=== PATIENT | female | born 1955 | race Caucasian/White ===

== ENCOUNTER 2016-10-15 06:46 | Inpatient (IN) ==
--- NOTE | 2016-10-09 13:46 | EKG Report ---
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
[2016-10-09 14:09] LABS: Alanine Aminotransferase 11 U/L (13-56); Albumin 3.7 G/DL (3.4-5.0); Alkaline Phosphatase 69 U/L (45-117); Aspartate Amino Transferase 17 U/L (0-37); Bilirubin,Total < 0.39 MG/DL (0.2-1.0); Blood Urea Nitrogen 9 MG/DL (7-18); Calcium 9.1 MG/DL (8.5-10.1); Glucose 122 MG/DL (74-106); Sodium 143 MMOL/L (136-145); Total Protein 6.5 G/DL (6.4-8.3)
[2016-10-09 20:43] LABS: Basophils % 0.4 % (0.0-0.8); Eosinophils # 0.4 10*3/uL (0.0-0.87); Eosinophils % 5.3 % (0.00-10.9); Hematocrit 40.2 VOL% (35.7-47.0); Hemoglobin 12.9 GM/DL (12.0-16.0); Immature Granulocytes % 0.4 %; Immature Granulocytes Absolute 0.03 #; Lymphocytes # 1.9 10*3/uL (1.4-4.0); Lymphocytes % 23.4 % (21.3-54.2); Mean Corpuscular HGB Conc 32.1 GM/DL (32-36); Mean Corpuscular Hemoglobin 30 PG (27-34); Mean Corpuscular Volume 93.9 FL (87-102); Mean Platelet Volume 10.7 FL (9.6-12.0); Monocytes # 0.7 10*3/uL (0.11-0.8); Neutrophils # 4.9 10*3/uL (1.4-7.4); Neutrophils % 61.5 % (38.7-73.9); Platelet Count 216 T/CUMM (130-400); Red Blood Count 4.28 MC/CUMM (3.8-5.5); Red Cell Distribution Width 14.3 % (9.3-17.3)
[2016-10-15] MEDS ORDERED: FAMOTIDINE 20 MG TABLET PO ONE (07:51)
[2016-10-15] MEDS ORDERED: ALBUTEROL 2.5 MG/3 ML NEB RESP TX ONE (07:51)
[2016-10-15] MEDS ORDERED: DIAZEPAM 5 MG TABLET PO ONE (07:51)
[2016-10-15] MEDS ORDERED: DIAZEPAM 5 MG TABLET ONE (07:57)
[2016-10-15] MEDS ORDERED: ceFAZolin 1,000 MG VIAL ONE (07:57)
[2016-10-15] MEDS ORDERED: FAMOTIDINE 20 MG TABLET ONE (07:57)
[2016-10-15] MEDS ORDERED: SODIUM CHLORIDE 0.9% 100 ML IV ONE (07:58)
[2016-10-15] MEDS ORDERED: LACTATED RINGERS 1,000 ML IV SCH (08:00)
--- NOTE | 2016-10-15 08:10 | History and Physical Update ---
History and Physical Update - Physical Exam History and Physical Changes: Patient reports possibly having had a UTI when she has rehab but was not treated I will check a UA this morning there is no evidence of an ongoing infection today carotid endarterectomy will continue the Ancef until I am certain is not an ongoing infection
[2016-10-15 08:30] LABS: Apearance,Urine CLEAR (Clear); Bacteria,Urine Occasional /HPF (Few); Bilirubin,Urine Negative (Negative); Blood, Urine Negative (Negative); Glucose,Urine (UA) Negative (Negative); Ketones,Urine Negative (Negative); Mucus,Urine Occasional /LPF (Occasional); Nitrite,Urine Negative (Negative); Protein,Urine Negative; RBC,Urine 1 /HPF (0-4); Squamous Epithelial Cell,Urine Occasional /HPF (0-10); Urine Color Yellow (Yellow); Urine Specific Gravity 1.012 (1.001-1.035); Urine Urobilinogen < 2.0 EU/DL (0.2-1.0); WBC,Urine 1 /HPF (0-6)
[2016-10-15] MEDS ORDERED: HEPARIN 5,000 UNIT/1 ML VIAL ONE (08:36)
[2016-10-15] MEDS ORDERED: VANCOMYCIN 1,000 MG VIAL ONE (08:36)
[2016-10-15] MEDS ORDERED: LIDOCAINE 2% 5 ML VIAL ONE (09:30)
[2016-10-15] MEDS ORDERED: KETOROLAC 30 MG/1 ML VIAL ONE (09:30)
[2016-10-15] MEDS ORDERED: ETOMIDATE 20 MG/10 ML VIAL IV ONE (09:30)
[2016-10-15] MEDS ORDERED: GLYCOPYRROLATE 0.4 MG/2 ML VIAL ONE (09:30)
[2016-10-15] MEDS ORDERED: NEOSTIGMINE 10 MG/10 ML VIAL ONE (09:30)
[2016-10-15] MEDS ORDERED: ONDANSETRON 4 MG/2 ML VIAL ONE ×2 (09:30→11:15)
[2016-10-15] MEDS ORDERED: HEPARIN 10,000 UNIT/10 ML VIAL ONE (09:30)
[2016-10-15] MEDS ORDERED: ROCURONIUM 100 MG/10 ML VIAL IV ONE (09:30)
--- NOTE | 2016-10-15 10:51 | Operative Note ---
Date of procedure: 10/15/16 Procedure: Dr. Oliva an operative report on Simran Eubanks. Surgeon: Chiki Anesthesia: Iliev general endotracheal Preoperative diagnosis: Symptomatic high-grade right carotid stenosis Postoperative diagnosis: Same Procedure: Right carotid endarterectomy with a bovine pericardial patch Indications for the procedure Ms. eubanks is a 61-year-old woman recently had some cerebrovascular accidents found to have a very high-grade stenosis of the right internal carotid artery I have offered a right carotid endarterectomy have explained the alternatives risks and complications which she understands and accepts. Description of the procedure: After the induction of general endotracheal anesthesia the patient was placed in supine position her neck modestly extended and turned to the left or right neck and chest are prepped with ChloraPrep and Ioban and draped in usual fashion I made a horizontal incision in a skin crease below the angle of the mandible this is carried into the subplatysmal space and dissection was carried out along the anterior border of the sternocleidomastoid muscle. Anterior facial vein is identified ligated and hemoclipped and divided I then dissected anterior to the internal jugular vein locating the common carotid artery. Common carotid is controlled with a maxi vessel loop the patient received 5000 units of intravenous heparin. I then continued dissecting along the common carotid past the bifurcation separately controlling the superior thyroid external carotid and internal carotid arteries well above the bifurcation and its disease the hypoglossal nerve and vagus nerves were identified and protected. With adequate anticoagulation Vesseloops were brought up to control the artery and a longitudinal arteriotomy was made from the common carotid past the markedly diseased bifurcation and into the more normal distal internal carotid artery. Notably there was a fairly significant kink in the carotid artery just above the plaque. Placed in in-line [place] shunt into the internal carotid and obtained good back pressure and then placed in the common carotid to reestablish flow. There was an exophytic highly stenotic plaque at the origin of the internal carotid artery standard endarterectomy was carried out removing the diseased intima and media from the bifurcation and loose flaps of medial removed under loupe magnification. With the amount of kinking and redundancy I felt the best approach would be to take more or less a complete in the internal carotid artery to take up the extra slack and further tack down the distal intima this was done with a running 7-0 Prolene suture. I then closed the arteriotomy over the shunt with a bovine pericardial patch and 6-0 Prolene suture shunt was removed and appropriate time backflushing internal/external carotid arteries and flushing again with heparinized saline. With the arteriotomy completely closed flow was initiated from the common carotid into the external and then restored into the internal carotid artery. Doppler flow in both vessels were quite good patient received 25 mg of protamine to partially reverse heparin. Pressure was held for period of time hemostasis was good irrigated with vancomycin placed us pledget of Surgicel over the arteriotomy incision was closed over quarter inch Callum drain with 3-0 Monocryl in the platysma skin clips on the skin. Blood loss estimated at 100 cc sponge needle and instrument counts correct and the patient taken to recovery in stable condition. Surgeon / Physician: Raman Oliva Results - Labs CBC & BMP: 10/09/16 13:28 10/09/16 13:28 Discharge Plan - Discharge Medications No Action Albuterol Neb [Proventil Neb] 1 unit RESP TX DIRECTED Albuterol Inhaler [Proventil Inhaler] 2 puff INH Q6H PRN PRN Reason: Shortness Of Breath/Wheezing fentaNYL [Fentanyl 50 mcg/hr Patch] 1 patch TRANSDERM Q3DAY Diazepam Tab [Valium Tab] 2 mg PO BID Clopidogrel [Plavix] 1 tablet PO DAILY HYDROcodone/ACETAMIN 10-325 [[place] 10-325] 1 tablet PO Q4-6H PRN PRN Reason: Pain Moderate To Severe (4-10) Rosuvastatin [Crestor] 1 tablet PO DAILY Aspirin [Ecotrin] 81 mg PO DAILY Losartan [Cozaar] 50 mg PO DAILY Temazepam [Restoril] 15 mg PO BEDTIME PRN PRN Reason: Sleep Buspirone HCl 7.5 mg PO BID - Follow Up or Referral - Forms/Instructions
[2016-10-15] MEDS: HYDROmorphone 2 MG/1 ML VIAL IV PRN ×5 (11:15→16:15)
[2016-10-15] MEDS ORDERED: HYDROmorphone 2 MG/1 ML VIAL ONE (11:15)
[2016-10-15] MEDS ORDERED: ONDANSETRON 4 MG/2 ML VIAL IV PRN ×2 (11:15→12:46)
[2016-10-15] MEDS ORDERED: SEVOFLURANE 1 UNIT/15 MINUTE INH ONE (11:18)
[2016-10-15] MEDS ORDERED: fentaNYL 100 MCG/2 ML VIAL ONE (11:18)
[2016-10-15] MEDS ORDERED: MIDAZOLAM 2 MG/2 ML VIAL ONE (11:19)
--- NOTE | 2016-10-15 11:58 | Anesthesia Post-Op ---
Anesthesia Post OP - Post Ansesthetic Evaluation Patient seen in post op: Yes Resp: within normal limits CV: within normal limits Mental: within normal limits Temp: within normal limits [id number]: within normal limits Nausea and Vomiting: within normal limits Pain: within normal limits (hurting some being treated with pain meds)
[2016-10-15] MEDS ORDERED: PROMETHAZINE 25 MG/1 ML VIAL IM PRN (12:46)
[2016-10-15] MEDS ORDERED: DOPamine 800 MG/250 ML PREMIX IV PRN (12:46)
[2016-10-15] MEDS ORDERED: DEXTROSE 50% 25 GM/50 ML VIAL IV PRN (12:46)
[2016-10-15] MEDS ORDERED: NALOXONE 0.4 MG/ML VIAL IV PRN (12:46)
[2016-10-15] MEDS ORDERED: GLUCAGON 1 MG VIAL IM PRN (12:46)
[2016-10-15] MEDS ORDERED: TEMAZEPAM 15 MG CAPSULE PO PRN (12:48)
[2016-10-15] MEDS ORDERED: ALBUTEROL 2.5 MG/3 ML NEB RESP TX SCH (13:00)
[2016-10-15] MEDS: LACTATED RINGERS 1,000 ML IV SCH (13:23)
[2016-10-15] MEDS: ASPIRIN EC 81 MG TABLET PO SCH (13:26)
[2016-10-15] MEDS: CLOPIDOGREL 75 MG TABLET PO SCH (13:26)
[2016-10-15] MEDS: oxyCODONE/ACETAMINOPHEN 5-325 MG TABLET PO PRN ×2 (14:55→20:59)
[2016-10-15] MEDS ORDERED: ALBUTEROL 2.5 MG/3 ML NEB RESP TX PRN (15:14)
--- NOTE | 2016-10-15 16:41 | Event Note ---
Ms. osorio is awake alert oriented and answers questions appropriately no facial asymmetry tongue midline no hematoma good handgrip vital signs appear to be stable as well without pressors
[2016-10-15] MEDS: DIAZEPAM 2 MG TABLET PO SCH (20:59)
[2016-10-15] MEDS: busPIRone 15 MG TABLET PO SCH (20:59)
[2016-10-16] MEDS: LACTATED RINGERS 1,000 ML IV SCH (00:02)
[2016-10-16] MEDS: HYDROmorphone 2 MG/1 ML VIAL IV PRN ×2 (06:00→13:06)
--- NOTE | 2016-10-16 08:00 | Event Note ---
Ms. osorio is awake alert oriented answering questions complain somewhat of mild headache and sore throat at the incision. Good handgrip tongue midline no facial asymmetry incision looks good Callum drain is been removed. Still requiring a bit of dopamine to maintain blood pressure. I am going to have the nurse staff remove a line get her up she can have breakfast and perhaps if the pressure improves we can get her upstairs later today
[2016-10-16] MEDS: busPIRone 15 MG TABLET PO SCH ×2 (08:49→20:08)
[2016-10-16] MEDS: ASPIRIN EC 81 MG TABLET PO SCH (08:49)
[2016-10-16] MEDS: CLOPIDOGREL 75 MG TABLET PO SCH (08:49)
[2016-10-16] MEDS: ROSUVASTATIN 10 MG TABLET PO SCH (08:49)
[2016-10-16] MEDS: DIAZEPAM 2 MG TABLET PO SCH ×2 (08:52→20:08)
[2016-10-16] MEDS: oxyCODONE/ACETAMINOPHEN 5-325 MG TABLET PO PRN ×3 (08:53→20:08)
[2016-10-16] MEDS ORDERED: LOSARTAN 50 MG TABLET PO SCH (09:00)
[2016-10-16] MEDS ORDERED: CLOPIDOGREL 75 MG TABLET PO SCH (09:00)
[2016-10-16] MEDS ORDERED: ASPIRIN EC 81 MG TABLET PO SCH (09:00)
--- NOTE | 2016-10-16 16:59 | Event Note ---
Ms. hollins remains awake and alert her blood pressures much more stable and off dopamine I will go ahead and transfer upstairs this evening
[2016-10-16] MEDS ORDERED: DEXTROSE 50% 25 GM/50 ML VIAL IV PRN (17:04)
[2016-10-16] MEDS ORDERED: GLUCAGON 1 MG VIAL IM PRN (17:04)
[2016-10-17] MEDS: HYDROmorphone 2 MG/1 ML VIAL IV PRN (02:13)
[2016-10-17] MEDS: oxyCODONE/ACETAMINOPHEN 5-325 MG TABLET PO PRN (05:59)
[2016-10-17 07:17] VITALS: BP 150/71
--- NOTE | 2016-10-17 08:49 | Discharge Summary ---
Hospital Course - Hospital Course Hospital Course: Simran osorio was admitted with symptomatic right carotid stenosis and has undergone a right carotid endarterectomy. She had difficulties with hypotension postoperatively and therefore spent extra time in the ICU and an extra night in the hospital but this morning is up and about walking dressed and ready for discharge. Discussed wound care with her new medications expected recovery and exercise restrictions. She does not drive due to visual discomfort difficulties. I will plan to see her in the office next week for staple removal Specialty Discharge - Follow Up or Referrals Follow up with: Raman Oliva MD [Physician] - 10/22/16 2:15 pm (APPT.OCTOBER 22 @ 2:15) Discharge Plan - Discharge Data Disposition: Disch To Home/Self Care Condition at Discharge: Stable Discharge Diet: advance to your usual diet Activity: resume usual activities as tolerated Hygiene: may shower Weight Bearing at Discharge: full weight bearing Driving: not until seen by doctor Contact your physician if you experience:: Redness or swelling, Bleeding - Discharge Medications Continue Albuterol Inhaler [Proventil Inhaler] 2 puff INH Q6H PRN PRN Reason: Shortness Of Breath/Wheezing HYDROcodone/ACETAMIN 10-325 [[place] 10-325] 1 tablet PO Q4-6H PRN #20 PRN Reason: Pain Moderate To Severe (4-10) fentaNYL [Fentanyl 50 mcg/hr Patch] 1 patch TRANSDERM Q3DAY Diazepam Tab [Valium Tab] 2 mg PO BID Clopidogrel [Plavix] 1 tablet PO DAILY Rosuvastatin [Crestor] 1 tablet PO DAILY Aspirin [Ecotrin] 81 mg PO DAILY Losartan [Cozaar] 50 mg PO DAILY Temazepam [Restoril] 15 mg PO BEDTIME PRN PRN Reason: Sleep Buspirone HCl 7.5 mg PO BID - Follow Up or Referral Follow Up: Raman Oliva MD [Physician] - 10/22/16 2:15 pm (APPT.OCTOBER 22 @ 2:15) - Forms/Instructions Exam - Constitutional Vitals: Period Temp Pulse Resp BP Sys/Martinez Pulse Ox Last 24 Hr 97.9 F-99.0 F 61-123 12-25 95-189/45-125 90-100 DS: Provider Date of admission: 10/15/16 06:46 Primary care physician: Jennifer Vora M.D. Attending physician on admission: Raman Oliva MD Discharging clinician: Raman Oliva MD
[2016-10-17] MEDS: busPIRone 15 MG TABLET PO SCH (08:55)
[2016-10-17] MEDS: ROSUVASTATIN 10 MG TABLET PO SCH (08:55)
[2016-10-17] MEDS: CLOPIDOGREL 75 MG TABLET PO SCH (08:56)
[2016-10-17] MEDS: DIAZEPAM 2 MG TABLET PO SCH (08:56)
[2016-10-17] MEDS: ASPIRIN EC 81 MG TABLET PO SCH (08:56)
[2016-10-18] MEDS ORDERED: fentaNYL 50 MCG/HR PATCH TRANSDERM SCH (09:00)
== END 2016-10-17 10:15 | disposition home or self-care (01) | DRG 39 ==
LOC: N.SDSINP 06:46 → N.ICU 11:54 → N.3E 10-16 17:28
PROVIDERS: ADMIT Surgery; ATTEND Surgery

== ENCOUNTER 2016-10-23 12:39 | Inpatient (IN) ==
[2016-10-23 15:03] LABS: Hematocrit 36.8 VOL% (35.7-47.0); Hemoglobin 11.5 GM/DL (12.0-16.0); Immature Granulocytes % 0.4 %; Immature Granulocytes Absolute 0.03 #; Lymphocytes # 0.9 10*3/uL (1.4-4.0); Lymphocytes % 10.3 % (21.3-54.2); Mean Corpuscular HGB Conc 31.3 GM/DL (32-36); Mean Corpuscular Hemoglobin 30 PG (27-34); Mean Corpuscular Volume 95.6 FL (87-102); Mean Platelet Volume 9.8 FL (9.6-12.0); Monocytes # 0.7 10*3/uL (0.11-0.8); Monocytes % 8.4 % (1.7-12.7); Neutrophils # 6.8 10*3/uL (1.4-7.4); Neutrophils % 80.9 % (38.7-73.9); Platelet Count 162 T/CUMM (130-400); Red Blood Count 3.85 MC/CUMM (3.8-5.5); White Blood Count 8.4 T/CUMM (4-12)
[2016-10-23 15:08] LABS: ABG Base Excess 7.6 MMOL/L (-2.5-2.5); ABG HCO3 31.3 MMOL/L (20-26); ABG Oxygen Saturation 96.5 % (95-100); ABG PCO2 44.6 MM HG (35-48); ABG PH 7.467 (7.35-7.45); ABG PO2 83.8 MM HG (80-95); ABG TCO2 28.8 MMOL/L (23-27); Allen Test Positive; Pt O2 Delivery Device Ventilator
[2016-10-23 15:12] LABS: INR 1.3; PT Patient Result 13.5 SECS
[2016-10-23 15:26] LABS: Lactic Acid 3.6 MMOL/L (0.4-2.0)
[2016-10-23 15:39] LABS: Apearance,Urine CLEAR (Clear); Bacteria,Urine Occasional /HPF (Few); Bilirubin,Urine Negative (Negative); Blood, Urine Small mg/dL (Negative); Glucose,Urine (UA) Negative (Negative); Hyaline Casts,Urine 5 /LPF (0-3); Ketones,Urine 5 mg/dL (Negative); Mucus,Urine Occasional /LPF (Occasional); Nitrite,Urine Negative (Negative); Protein,Urine 30 MG/DL; RBC,Urine 1 /HPF (0-4); Urine Color Yellow (Yellow); WBC,Urine 5 /HPF (0-6)
[2016-10-23 15:43] LABS: Albumin 2.8 G/DL (3.4-5.0); Bilirubin,Total 0.6 MG/DL (0.2-1.0); Calcium 7.8 MG/DL (8.5-10.1); Osmolality,Calculated 291.4 MOS/KG (273-304); Potassium 4.3 MMOL/L (3.5-5.1); Total Protein 5.3 G/DL (6.4-8.3)
[2016-10-23] MEDS ORDERED: SODIUM CHLORIDE 0.9% 1,000 ML IV SCH (16:00)
--- NOTE | 2016-10-23 16:01 | Hospitalist History & Physical ---
<Yuliet Moraes - Last Filed: 10/23/16 16:46> Assessment and Plan (1) Respiratory distress Status: Acute Assessment and plan: Admit to ICU. Mechanical ventilation. Consult pulm to follow. Monitor blood gases. Labs in am. Current Visit: Yes (2) Hypertension Status: Acute Assessment and plan: Pt. blood pressure currently elevated. PRN IV htn medications. Current Visit: No (3) Elevated troponin Status: Acute Assessment and plan: Serial troponins. Serial EKGs. Monitor patient. Consult cardiology. Current Visit: Yes (4) Drug overdose Status: Acute Assessment and plan: Admit to ICU. Pt. on vent for respiratory issues. Monitor labs. Current Visit: Yes (5) chronic pain Status: Chronic Current Visit: No History of Present Illness Chief complaint: respiratory failure History of present illness: Ms. Eubanks is a 61 year old white female with a history of htn, depression and anxiety, COPD, pneumonia, stroke, RA, chf, and MIKE that is a direct admit from [facility] for respiratory distress secondary to possible drug overdose. Pt. was just seen in the ED here on 10/21 for a headache. Pt. was treated and released. Pt. is s/p recent carotid procedure performed by Dr. Oliva. Pt. also just recently had a stroke prior to her carotid endarterectomy. Pt. is currently intubated. Sister at bedside and provides history of what she was told happen to patient per brother. This morning, the patient was last seen alert around 7. When the pt's brother went to arouse her she was sleeping, later when he tried again she was unresponsive. EMS was alert and came to the home. Pt. was reportedly gurgling and still very lethargic. Pt. had been found next to pills which included pain medications which patient takes for spinal stenosis, RA, and chronic pain. The patient was given Narcan, transported to [facility] and subsequently transferred here. Pt. was admitted to the ICU for further eval and treatment. MD to follow. Home Medications Medication Instructions Recorded Confirmed Type Aspirin [Ecotrin] 81 mg PO DAILY 10/03/16 10/15/16 History Buspirone HCl 7.5 mg PO BID 10/03/16 10/23/16 History Clopidogrel [Plavix] 1 tablet PO DAILY 10/03/16 10/23/16 History Diazepam Tab [Valium Tab] 2 mg PO BID 10/03/16 10/15/16 History Losartan [Cozaar] 50 mg PO DAILY 10/03/16 10/23/16 History Rosuvastatin [Crestor] 1 tablet PO DAILY 10/03/16 10/15/16 History Temazepam [Restoril] 15 mg PO BEDTIME PRN 10/03/16 10/15/16 History Albuterol Inhaler [Proventil 2 puff INH Q4HR 10/09/16 10/15/16 History Inhaler] fentaNYL [Fentanyl 50 mcg/hr Patch] 1 patch TRANSDERM Q3DAY 10/09/16 10/15/16 History HYDROcodone/ACETAMIN 10-325 [[place] 1 tablet PO Q4-6H PRN #20 10/17/16 10/23/16 Rx 10-325] Allergies Allergy/AdvReac Type Severity Reaction Status Date / Time morphine Allergy Severe SHORTNESS Verified 10/15/16 07:07 OF BREATH Medical,Surgical,& Family Hx - Medical History Cardio: History of: Hypertension Psychological: History of: Anxiety Disorders, Depression Neurology: History of: Cerebrovascular Accident, Peripheral Neuropathy HEENT: History of: Eye Problem (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 Way), Osteoporosis Reproductive: History of: Abnormal Pap Smear (pre-cancerous cells with removal.) Other: No history of: Anesthesia Reactions - Surgical History HEENT Surgeries: Surgical HX of: Eye Surgery (Cataract removal.) Abdominal Surgeries: Surgical HX of: Abdominal Surgery, Appendectomy, Gastric Bypass Surgery Reproductive Surgeries: Surgical HX of;: Hysterectomy Orthopedic Surgeries: Surgical HX of;: Orthopedic Surgery (Left Rotator Cuff Repair.) - Family History Family History: Reports;: Family Cancer, Family Diabetes, Family Heart Disease, Family Hypertension, Family Psychiatric Problems, Family Stroke - Social History Smoking Status: Former smoker Frequency of Alcohol Use: Unknown Type of Drug Use: Unknown Marital Status: Single Lives With:: Alone (pt. lives alone; since recent carotid she has stayed with her brother and his ) ROS unobtainable: due to endotracheal tube Exam - Constitutional Vitals: Period Temp Pulse Resp BP Sys/Martinez Pulse Ox Last 24 Hr 14 General appearance: normal weight, no acute distress - Head Head exam: Present: normal inspection, normocephalic - Eye Eye exam: Absent: EOMI Pupils: Present: fixed. Absent: XAVIER - Neck Neck exam: Present: normal inspection. Absent: thyromegaly - Respiratory Respiratory exam: Present: wheezes - Cardiovascular Cardiovascular exam: Present: regular rate and rhythm. Absent: JVD - GI/Abdominal GI/Abdominal exam: Present: soft. Absent: normal bowel sounds - Extremities Exam Extremities exam: Present: normal capillary refill. Absent: edema - Neurological Exam Neurological exam: Present: altered, motor sensory deficit - Skin Skin exam: Present: normal color, warm, dry Results - Labs CBC & BMP: 10/23/16 14:58 10/23/16 14:58 Lab Results: I have reviewed the past 24 hour labs <Lianet Bishop - Last Filed: 10/23/16 18:56> History of Present Illness History of present illness: Ms. Eubanks is a 61 year old female with Hx of RA, HTN, anxiety/depression, recent right occipital CVA and CEA, peripheral neuropathy, COPD, MIKE, and osteoporosis who presented to the hospital unresponsive. Reportedly at the OSH she was given Narcan and awoke. She became combative and was sedated requiring intubation. She was transferred to hospital for further evaluation and treatment. Reportedly, CT head was negative. Labs reveal elevated LFTs, creatinine 1.6, troponin 1.89, lactic acid of 3.6. Cards, Pulm, GI are consulted. Versed drip changed to diprovan. I have ordered a acetaminophen level now and in 4hours and written for Antedote protocol. I discussed with poison control who agrees with management and will follow-up patient results. IVF changed to lactated ringer. Viral hepatitis panel ordered. Abd U/S ordered. labs ordered for am. Vitals reviewed Sedated and intubated, ashen appearance RRR no M CTAB nonlabored Soft, hypoactive bowel sounds no HSM or masses appreciated cool distal extremities, no cyanosis or edema Full neuro could not be done due to sedation Pt is critically ill. It has taken me 44 minutes to evaluate and treat this patient. No family available at bedside. D/W nurse and TRANSMISSION ENGINEER. Pt is full code. Exam - Constitutional Vitals: Period Temp Pulse Resp BP Sys/Martinez Pulse Ox Last 24 Hr 97.8 F 71-78 14-19 129-160/86-113 97-100 Results - Labs CBC & BMP: 10/23/16 14:58 10/23/16 14:58
[2016-10-23] MEDS ORDERED: ONDANSETRON 4 MG/2 ML VIAL IV PRN (16:14)
[2016-10-23 16:19] LABS: Albumin 2.8 G/DL (3.4-5.0); Bilirubin,Direct 0.4 MG/DL (0.0-0.20); Bilirubin,Indirect 0.2 MG/DL (0.0-1.0); Bilirubin,Total 0.6 MG/DL (0.2-1.0); Total Protein 5.3 G/DL (6.4-8.3)
[2016-10-23 16:26] LABS: CKMB % 3.1 %
[2016-10-23 16:29] LABS: Troponin I Only 1.89 NG/ML (0.00-0.045)
[2016-10-23] MEDS: PROPOFOL 1,000 MG/100 ML BOTTLE IV SCH ×2 (16:29→22:23)
--- NOTE | 2016-10-23 17:15 | XRay Report ---
XR chest 1V portable Indication: Ventilator. Comparison: None. Technique: Portable AP chest was performed. Findings: The heart size appears within normal limits. Endotracheal tube terminates at the level of the marnie. Retraction by 1 to 2 cm could be considered. NG tube is present which terminates within the gastric fundus. Pulmonary vasculature demonstrates no specific abnormality. Hilar structures demonstrate fairly symmetric appearance. The lungs demonstrate haziness in the lung bases more prevalent on the left. Differential considerations include atelectasis. Mid and upper lungs are clear. Bones and soft tissues demonstrate no evidence of acute pathology. Impression: 1. Retraction of endotracheal tube by 1 to 2 cm could be considered. 2. Haziness most pronounced in the left lung base could reflect atelectasis. 10/23/2016 5:12 PM PROCEDURE INTERPRETED AT [facility] DEPARTMENT OF RADIOLOGY Final Report Signed by: Dr. Abdi Mariscal
--- NOTE | 2016-10-23 18:04 | Cardiology Consult Note ---
<Aixa Montague E - Last Filed: 10/23/16 17:37> Assessment and Plan - Time spent with patient Time spent with patient: Greater than 30 minutes (due to assessment, plan, and documentation) (1) Elevated troponin Status: Acute Assessment and plan: SEE PLAN OF CARE LISTED BELOW. Current Visit: Yes (2) Respiratory distress Status: Acute Assessment and plan: SEE PLAN OF CARE LISTED BELOW. Current Visit: Yes (3) Drug overdose Status: Acute Assessment and plan: SEE PLAN OF CARE LISTED BELOW. Current Visit: Yes (4) Hypertension Status: Chronic Assessment and plan: SEE PLAN OF CARE LISTED BELOW. Current Visit: No (5) Chronic pain syndrome Status: Chronic Assessment and plan: SEE PLAN OF CARE LISTED BELOW. Current Visit: No (6) Carotid stenosis Status: Chronic Assessment and plan: SEE PLAN OF CARE LISTED BELOW. 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 Current Visit: No (8) History of CHF (congestive heart failure) Status: Chronic Assessment and plan: SEE PLAN OF CARE LISTED BELOW. Current Visit: Yes (9) MIKE (obstructive sleep apnea) Status: Chronic Assessment and plan: SEE PLAN OF CARE LISTED BELOW. Current Visit: Yes (10) COPD (chronic obstructive pulmonary disease) Status: Chronic Assessment and plan: SEE PLAN OF CARE LISTED BELOW. Current Visit: No History of Present Illness - Data of Consult Patient: new to practice Consult date: 10/23/16 Requesting Physician: Yuliet Moraes - Consult Narrative Reason for consult: ELEVATED TROPONIN History of present illness: CREW LEAD: UNKNOWN PATIENT IS BEING SEEN IN THE CCU ROOM 126. Ms. Eubanks is a 61 year old female who was directly admitted to our facility from [facility]. She is intubated and on mechanical ventilation. Much of the history is obtained from the medical record. She has a history of hypertension, depression and anxiety, COPD, pneumonia, stroke, rheumatoid arthritis, congestive heart failure, and obstructive sleep apnea. She was apparently last seen alert around 0700 this morning. When the patient's brother went to arouse her later in the morning, she was sleeping but then was unresponsive. Her brother called EMS and she was transported to [facility]. She was just discharged from our facility on 10/17/16 from having a right carotid endarterectomy. She has a history of CVA prior to her right and apparently has an impaired memory and tunnel vision with no peripheral vision. Her family reports she has difficulty with remembering to take medications and remembering whether or not she has already taken medications. When the patient was found by EMS, it's reported that she was gurgling and lethargic. Several pills including pain medications were found near the patient. She takes medication for spinal stenosis, rheumatoid arthritis, and chronic pain. She was transferred here to our facility for further evaluation and we were consulted to see her due to an elevated troponin. Upon arrival to [facility], her troponin was 0.497. Her CK-MB was 4.1. EKG showed NSR with mild ST depression anterolaterally. We do not have prior records of her having seen a wood scrap handler at [facility] nor at [facility]. We will continue to cycle cardiac biomarkers and EKGs. We'll obtain an echo to assess for wall motion abnormalities and/or valvular abnormalities. Her creatinine is elevated at 1.6. We'll hold off on resuming her ARB and start her on a low dose beta kris. Will follow her BMP. Dr. Higgins to follow with further plan and addendum. ASSESSMENT/PLAN: 1. ELEVATED TROPONIN - Unsure whether patient has had recent cardiac symptoms. EKG shows mild ST-T changes from previous EKG done 10/09/16. Troponin up to 1.89 with CK-MB 7.3 and CPK 235. We do not have records of her previously undergoing cardiac evaluation at our facility. If this is pursued, will need to monitor renal function. Creatinine currently 1.6, was 1.0 upon discharge on 10/17/16. 2. RESPIRATORY FAILURE - Currently intubated and on mechanical ventilation. Pulmonology has been consulted for vent management. 3. SUSPECTED DRUG OVERDOSE - Urine drug screen pending. Suspected overdose on opioids. 4. HYPERTENSION - Will continue home medication. Will monitor and adjust medications accordingly during hospitalization. 5. CHRONIC PAIN - Related to spinal stenosis, rheumatoid arthritis. Reportedly takes [place] and Fentanyl patches at home. 6. CAROTID STENOSIS - S/P right carotid endarterectomy 10/15/[address] Oliva. Continue Plavix. Will start her on ASA daily. 7. HISTORY OF CVA - History of recent CVA with memory impairment and impaired peripheral visual acuity. 8. HISTORY OF CHF - Will check echocardiogram to assess. BNP unremarkable at 237. 9. OBSTRUCTIVE SLEEP APNEA - Currently on mechanical ventilation. Continue CPAP once off vent. 10. COPD - Currently on mechanical ventilation. Pulmonology has been consulted. CC: Lianet Bishop MD - Home Medications and Allergies Home Medications: Home Medications Medication Instructions Recorded Confirmed Type Aspirin [Ecotrin] 81 mg PO DAILY 10/03/16 10/15/16 History Buspirone HCl 7.5 mg PO BID 10/03/16 10/23/16 History Clopidogrel [Plavix] 1 tablet PO DAILY 10/03/16 10/23/16 History Diazepam Tab [Valium Tab] 2 mg PO BID 10/03/16 10/15/16 History Losartan [Cozaar] 50 mg PO DAILY 10/03/16 10/23/16 History Rosuvastatin [Crestor] 1 tablet PO DAILY 10/03/16 10/15/16 History Temazepam [Restoril] 15 mg PO BEDTIME PRN 10/03/16 10/15/16 History Albuterol Inhaler [Proventil 2 puff INH Q4HR 10/09/16 10/15/16 History Inhaler] fentaNYL [Fentanyl 50 mcg/hr Patch] 1 patch TRANSDERM Q3DAY 10/09/16 10/15/16 History HYDROcodone/ACETAMIN 10-325 [[place] 1 tablet PO Q4-6H PRN #20 10/17/16 10/23/16 Rx 10-325] Allergies/Adverse Reactions: Allergies Allergy/AdvReac Type Severity Reaction Status Date / Time morphine Allergy Severe SHORTNESS Verified 10/15/16 07:07 OF BREATH ROS unobtainable: due to endotracheal tube Medical,Surgical,& Family Hx - Medical History Cardio: History of: Hypertension Psychological: History of: Anxiety Disorders, Depression Neurology: History of: Cerebrovascular Accident, Peripheral Neuropathy HEENT: History of: Eye Problem (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 Way), Osteoporosis Reproductive: History of: Abnormal Pap Smear (pre-cancerous cells with removal.) Other: No history of: Anesthesia Reactions - Surgical History HEENT Surgeries: Surgical HX of: Eye Surgery (Cataract removal.) Abdominal Surgeries: Surgical HX of: Abdominal Surgery, Appendectomy, Gastric Bypass Surgery Reproductive Surgeries: Surgical HX of;: Hysterectomy Orthopedic Surgeries: Surgical HX of;: Orthopedic Surgery (Left Rotator Cuff Repair.) - Family History Family History: Reports;: Family Cancer, Family Diabetes, Family Heart Disease, Family Hypertension, Family Psychiatric Problems, Family Stroke - Social History Smoking Status: Former smoker Frequency of Alcohol Use: Unknown Type of Drug Use: Unknown Marital Status: Lives With:: Sibling Functional capacity: independent ambulation Physical Examination Vital Signs Resp 14 10/23/16 13:50 Other: General appearance: Orally intubated and sedated on ventilator. Normal weight, no acute distress. - Head Head exam: Present: normal inspection, normocephalic, atraumatic. Absent: hematoma, laceration - Eye Eye exam: Present: EOMI. Absent: conjunctival injection, nystagmus, periorbital swelling, scleral icterus, laceration to eyelids Pupils: Present: PERRL. Absent: constricted, dilated, fixed, irregular, unequal - ENT ENT exam: Present: Orally intubated, normal external ear exam. NGT in place. - Neck Neck exam: Present: normal inspection. Absent: lymphadenopathy, meningismus, tenderness, thyromegaly - Respiratory Respiratory exam: Present: Mechanically ventilated breath sounds. Absent: accessory muscle use - Cardiovascular Cardiovascular exam: Present: regular rate and rhythm. Absent: carotid bruit, gallop, JVD, rubs, murmur - GI/Abdominal GI/Abdominal exam: Present: normal bowel sounds, soft. Absent: distended, firm , guarding, hernia, mass, tenderness, rebound. - Extremities Exam Extremities exam: Present: normal inspection, normal capillary refill. Upper extremity pulses 2+. Lower extremity pulses 2+. Absent: calf tenderness, edema - Back Exam Back exam: Present: Unable to examine due to habitus. Sedated on mechanical ventilator. - Neurological Exam Neurological exam: Present: Limited due to habitus (on ventilator). Arousable to verbal stimuli. No resting or essential tremor. - Psychiatric Psychiatric exam: Present: Unable to adequately assess due to patient being sedated and on mechanical ventilation. - Skin Skin exam: Present: normal color, warm, dry, intact. Absent: cyanosis, diaphoretic, rash, urticaria Result/EKG - Labs CBC & BMP: 10/23/16 14:58 10/23/16 14:58 Lab Results: I have reviewed the past 24 hour labs Labs: Laboratory Results - last 24 hr 10/23/16 10/23/16 10/23/16 14:49 14:50 14:58 WBC RBC Hgb Hct MCV MCH MCHC RDW Plt Count MPV Neut % (Auto) Lymph % (Auto) [place] % (Auto) Eos % (Auto) Baso % (Auto) Neut # (Auto) Lymph # (Auto) [place] # (Auto) Eos # (Auto) Baso # (Auto) Immature Gran % Nucleated RBC % Immature Gran # Nucleated RBCs # INR PT Patient/Control Mix ABG pH ABG pCO2 ABG pO2 ABG HCO3 ABG Total CO2 ABG O2 Saturation ABG Base Excess FiO2 Sodium Potassium Chloride Carbon Dioxide Anion Gap BUN Creatinine GFR Calculation BUN/Creatinine Ratio Glucose POC Glucose Calculated Osmolality Lactic Acid Calcium Total Bilirubin Direct Bilirubin Indirect Bilirubin AST ALT Alkaline Phosphatase Ammonia 21 Total Creatine Kinase 235 H CK-MB (CK-2) 7.3 H CK and CKMB Interp 3.1 Troponin I 1.890 H B-Natriuretic Peptide Total Protein Albumin Globulin Albumin/Globulin Ratio Lipase Urine Color Yellow Urine Appearance Clear Urine pH 8.0 Ur Specific [place] 1.010 Urine Protein 30 Urine Glucose (UA) Negative Urine Ketones 5 Urine Blood Small Urine Nitrate Negative Urine Bilirubin Negative Urine Urobilinogen 2.0 H Urine Leukocytes Negative Urine RBC 1 Urine WBC 5 Urine Bacteria Occasional Hyaline Casts 5 Urine Mucus Occasional Ur Culture Indicated? Not indicated 10/23/16 10/23/16 10/23/16 14:58 14:58 14:58 WBC 8.4 RBC 3.85 Hgb 11.5 L Hct 36.8 MCV 95.6 MCH 30 MCHC 31.3 L RDW 15.0 Plt Count 162 MPV 9.8 Neut % (Auto) 80.9 H Lymph % (Auto) 10.3 L [place] % (Auto) 8.4 Eos % (Auto) 0.0 Baso % (Auto) 0.0 Neut # (Auto) 6.8 Lymph # (Auto) 0.9 L [place] # (Auto) 0.7 Eos # (Auto) 0.0 Baso # (Auto) 0.0 Immature Gran % 0.4 Nucleated RBC % 0.0 Immature Gran # 0.03 Nucleated RBCs # 0.00 INR 1.3 PT Patient/Control Mix 13.5 ABG pH ABG pCO2 ABG pO2 ABG HCO3 ABG Total CO2 ABG O2 Saturation ABG Base Excess FiO2 Sodium 147 H Potassium 4.3 Chloride 106 Carbon Dioxide 33 H Anion Gap 12.3 BUN 12 Creatinine 1.60 H GFR Calculation 33 BUN/Creatinine Ratio 7.00 Glucose 100 POC Glucose Calculated Osmolality 291.4 Lactic Acid 3.6 H Calcium 7.8 L Total Bilirubin 0.60 Direct Bilirubin Indirect Bilirubin AST 1516 H ALT 535 H Alkaline Phosphatase 156 H Ammonia Total Creatine Kinase CK-MB (CK-2) CK and CKMB Interp Troponin I B-Natriuretic Peptide Total Protein 5.3 L Albumin 2.8 L Globulin 2.5 Albumin/Globulin Ratio 1.1 Lipase Urine Color Urine Appearance Urine pH Ur Specific [place] Urine Protein Urine Glucose (UA) Urine Ketones Urine Blood Urine Nitrate Urine Bilirubin Urine Urobilinogen Urine Leukocytes Urine RBC Urine WBC Urine Bacteria Hyaline Casts Urine Mucus Ur Culture Indicated? 10/23/16 10/23/16 10/23/16 14:58 14:58 15:00 WBC RBC Hgb Hct MCV MCH MCHC RDW Plt Count MPV Neut % (Auto) Lymph % (Auto) [place] % (Auto) Eos % (Auto) Baso % (Auto) Neut # (Auto) Lymph # (Auto) [place] # (Auto) Eos # (Auto) Baso # (Auto) Immature Gran % Nucleated RBC % Immature Gran # Nucleated RBCs # INR PT Patient/Control Mix ABG pH 7.467 H ABG pCO2 44.6 ABG pO2 83.8 ABG HCO3 31.3 H ABG Total CO2 28.8 H ABG O2 Saturation 96.5 ABG Base Excess 7.6 H FiO2 65.00 Sodium Potassium Chloride Carbon Dioxide Anion Gap BUN Creatinine GFR Calculation BUN/Creatinine Ratio Glucose POC Glucose Calculated Osmolality Lactic Acid Calcium Total Bilirubin 0.60 Direct Bilirubin 0.40 H Indirect Bilirubin 0.2 AST 1516 H ALT 534 H Alkaline Phosphatase 149 H Ammonia Total Creatine Kinase CK-MB (CK-2) CK and CKMB Interp Troponin I B-Natriuretic Peptide 237 H Total Protein 5.3 L Albumin 2.8 L Globulin Albumin/Globulin Ratio Lipase 85.0 Urine Color Urine Appearance Urine pH Ur Specific [place] Urine Protein Urine Glucose (UA) Urine Ketones Urine Blood Urine Nitrate Urine Bilirubin Urine Urobilinogen Urine Leukocytes Urine RBC Urine WBC Urine Bacteria Hyaline Casts Urine Mucus Ur Culture Indicated? 10/23/16 15:35 WBC RBC Hgb Hct MCV MCH MCHC RDW Plt Count MPV Neut % (Auto) Lymph % (Auto) [place] % (Auto) Eos % (Auto) Baso % (Auto) Neut # (Auto) Lymph # (Auto) [place] # (Auto) Eos # (Auto) Baso # (Auto) Immature Gran % Nucleated RBC % Immature Gran # Nucleated RBCs # INR PT Patient/Control Mix ABG pH ABG pCO2 ABG pO2 ABG HCO3 ABG Total CO2 ABG O2 Saturation ABG Base Excess FiO2 Sodium Potassium Chloride Carbon Dioxide Anion Gap BUN Creatinine GFR Calculation BUN/Creatinine Ratio Glucose POC Glucose 118 H Calculated Osmolality Lactic Acid Calcium Total Bilirubin Direct Bilirubin Indirect Bilirubin AST ALT Alkaline Phosphatase Ammonia Total Creatine Kinase CK-MB (CK-2) CK and CKMB Interp Troponin I B-Natriuretic Peptide Total Protein Albumin Globulin Albumin/Globulin Ratio Lipase Urine Color Urine Appearance Urine pH Ur Specific [place] Urine Protein Urine Glucose (UA) Urine Ketones Urine Blood Urine Nitrate Urine Bilirubin Urine Urobilinogen Urine Leukocytes Urine RBC Urine WBC Urine Bacteria Hyaline Casts Urine Mucus Ur Culture Indicated? - EKG EKG results: interpreted by me, sinus rhythm (with ST-T abnormality) <Susie Higgins - Last Filed: 10/23/16 21:51> History of Present Illness - Consult Narrative History of present illness: I have personally interviewed and evaluated the patient, reviewed the chart and discussed medical decision-making with practitioner Eddi. I have read this note and agree with her documentation here in. Unfortunately, the patient is complicated with possible narcotic overdose, recent carotid surgery, and now what appears to be extension and possible hemorrhagic conversion of her stroke. We will not be able to further anticoagulate the patient and I will defer antiplatelet management to the hospitalist service, neurology and Dr. Oliva. We will follow-up echocardiogram in the morning. CC: Lianet Bishop MD Physical Examination Vital Signs Resp 14 10/23/16 13:50 Result/EKG - Labs CBC & BMP: 10/23/16 14:58 10/23/16 14:58 Labs: Laboratory Results - last 24 hr 10/23/16 10/23/16 10/23/16 14:49 14:50 14:58 WBC RBC Hgb Hct MCV MCH MCHC RDW Plt Count MPV Neut % (Auto) Lymph % (Auto) [place] % (Auto) Eos % (Auto) Baso % (Auto) Neut # (Auto) Lymph # (Auto) [place] # (Auto) Eos # (Auto) Baso # (Auto) Immature Gran % Nucleated RBC % Immature Gran # Nucleated RBCs # INR PT Patient/Control Mix ABG pH ABG pCO2 ABG pO2 ABG HCO3 ABG Total CO2 ABG O2 Saturation ABG Base Excess FiO2 Sodium Potassium Chloride Carbon Dioxide Anion Gap BUN Creatinine GFR Calculation BUN/Creatinine Ratio Glucose POC Glucose Calculated Osmolality Lactic Acid Calcium Total Bilirubin Direct Bilirubin Indirect Bilirubin AST ALT Alkaline Phosphatase Ammonia 21 Total Creatine Kinase 235 H CK-MB (CK-2) 7.3 H CK and CKMB Interp 3.1 Troponin I 1.890 H B-Natriuretic Peptide Total Protein Albumin Globulin Albumin/Globulin Ratio Lipase Urine Color Yellow Urine Appearance Clear Urine pH 8.0 Ur Specific [place] 1.010 Urine Protein 30 Urine Glucose (UA) Negative Urine Ketones 5 Urine Blood Small Urine Nitrate Negative Urine Bilirubin Negative Urine Urobilinogen 2.0 H Urine Leukocytes Negative Urine RBC 1 Urine WBC 5 Urine Bacteria Occasional Hyaline Casts 5 Urine Mucus Occasional Ur Culture Indicated? Not indicated Salicylates Acetaminophen Hepatitis A IgM Ab Hep Bs Antigen Hep B Core IgM Ab Hepatitis C Antibody 10/23/16 10/23/16 10/23/16 14:58 14:58 14:58 WBC 8.4 RBC 3.85 Hgb 11.5 L Hct 36.8 MCV 95.6 MCH 30 MCHC 31.3 L RDW 15.0 Plt Count 162 MPV 9.8 Neut % (Auto) 80.9 H Lymph % (Auto) 10.3 L [place] % (Auto) 8.4 Eos % (Auto) 0.0 Baso % (Auto) 0.0 Neut # (Auto) 6.8 Lymph # (Auto) 0.9 L [place] # (Auto) 0.7 Eos # (Auto) 0.0 Baso # (Auto) 0.0 Immature Gran % 0.4 Nucleated RBC % 0.0 Immature Gran # 0.03 Nucleated RBCs # 0.00 INR 1.3 PT Patient/Control Mix 13.5 ABG pH ABG pCO2 ABG pO2 ABG HCO3 ABG Total CO2 ABG O2 Saturation ABG Base Excess FiO2 Sodium 147 H Potassium 4.3 Chloride 106 Carbon Dioxide 33 H Anion Gap 12.3 BUN 12 Creatinine 1.60 H GFR Calculation 33 BUN/Creatinine Ratio 7.00 Glucose 100 POC Glucose Calculated Osmolality 291.4 Lactic Acid 3.6 H Calcium 7.8 L Total Bilirubin 0.60 Direct Bilirubin Indirect Bilirubin AST 1516 H ALT 535 H Alkaline Phosphatase 156 H Ammonia Total Creatine Kinase CK-MB (CK-2) CK and CKMB Interp Troponin I B-Natriuretic Peptide Total Protein 5.3 L Albumin 2.8 L Globulin 2.5 Albumin/Globulin Ratio 1.1 Lipase Urine Color Urine Appearance Urine pH Ur Specific [place] Urine Protein Urine Glucose (UA) Urine Ketones Urine Blood Urine Nitrate Urine Bilirubin Urine Urobilinogen Urine Leukocytes Urine RBC Urine WBC Urine Bacteria Hyaline Casts Urine Mucus Ur Culture Indicated? Salicylates Acetaminophen Hepatitis A IgM Ab Hep Bs Antigen Hep B Core IgM Ab Hepatitis C Antibody 10/23/16 10/23/16 10/23/16 14:58 14:58 15:00 WBC RBC Hgb Hct MCV MCH MCHC RDW Plt Count MPV Neut % (Auto) Lymph % (Auto) [place] % (Auto) Eos % (Auto) Baso % (Auto) Neut # (Auto) Lymph # (Auto) [place] # (Auto) Eos # (Auto) Baso # (Auto) Immature Gran % Nucleated RBC % Immature Gran # Nucleated RBCs # INR PT Patient/Control Mix ABG pH 7.467 H ABG pCO2 44.6 ABG pO2 83.8 ABG HCO3 31.3 H ABG Total CO2 28.8 H ABG O2 Saturation 96.5 ABG Base Excess 7.6 H FiO2 65.00 Sodium Potassium Chloride Carbon Dioxide Anion Gap BUN Creatinine GFR Calculation BUN/Creatinine Ratio Glucose POC Glucose Calculated Osmolality Lactic Acid Calcium Total Bilirubin 0.60 Direct Bilirubin 0.40 H Indirect Bilirubin 0.2 AST 1516 H ALT 534 H Alkaline Phosphatase 149 H Ammonia Total Creatine Kinase CK-MB (CK-2) CK and CKMB Interp Troponin I B-Natriuretic Peptide 237 H Total Protein 5.3 L Albumin 2.8 L Globulin Albumin/Globulin Ratio Lipase 85.0 Urine Color Urine Appearance Urine pH Ur Specific [place] Urine Protein Urine Glucose (UA) Urine Ketones Urine Blood Urine Nitrate Urine Bilirubin Urine Urobilinogen Urine Leukocytes Urine RBC Urine WBC Urine Bacteria Hyaline Casts Urine Mucus Ur Culture Indicated? Salicylates Acetaminophen Hepatitis A IgM Ab Hep Bs Antigen Hep B Core IgM Ab Hepatitis C Antibody 10/23/16 10/23/16 10/23/16 15:35 18:10 18:19 WBC RBC Hgb Hct MCV MCH MCHC RDW Plt Count MPV Neut % (Auto) Lymph % (Auto) [place] % (Auto) Eos % (Auto) Baso % (Auto) Neut # (Auto) Lymph # (Auto) [place] # (Auto) Eos # (Auto) Baso # (Auto) Immature Gran % Nucleated RBC % Immature Gran # Nucleated RBCs # INR PT Patient/Control Mix ABG pH ABG pCO2 ABG pO2 ABG HCO3 ABG Total CO2 ABG O2 Saturation ABG Base Excess FiO2 Sodium Potassium Chloride Carbon Dioxide Anion Gap BUN Creatinine GFR Calculation BUN/Creatinine Ratio Glucose POC Glucose 118 H Calculated Osmolality Lactic Acid Calcium Total Bilirubin Direct Bilirubin Indirect Bilirubin AST ALT Alkaline Phosphatase Ammonia Total Creatine Kinase 300 H D CK-MB (CK-2) 6.8 H CK and CKMB Interp 2.3 Troponin I 2.420 H D B-Natriuretic Peptide Total Protein Albumin Globulin Albumin/Globulin Ratio Lipase Urine Color Urine Appearance Urine pH Ur Specific [place] Urine Protein Urine Glucose (UA) Urine Ketones Urine Blood Urine Nitrate Urine Bilirubin Urine Urobilinogen Urine Leukocytes Urine RBC Urine WBC Urine Bacteria Hyaline Casts Urine Mucus Ur Culture Indicated? Salicylates < 2.8 L Acetaminophen 6.7 L Hepatitis A IgM Ab Hep Bs Antigen Hep B Core IgM Ab Hepatitis C Antibody 10/23/16 18:19 WBC RBC Hgb Hct MCV MCH MCHC RDW Plt Count MPV Neut % (Auto) Lymph % (Auto) [place] % (Auto) Eos % (Auto) Baso % (Auto) Neut # (Auto) Lymph # (Auto) [place] # (Auto) Eos # (Auto) Baso # (Auto) Immature Gran % Nucleated RBC % Immature Gran # Nucleated RBCs # INR PT Patient/Control Mix ABG pH ABG pCO2 ABG pO2 ABG HCO3 ABG Total CO2 ABG O2 Saturation ABG Base Excess FiO2 Sodium Potassium Chloride Carbon Dioxide Anion Gap BUN Creatinine GFR Calculation BUN/Creatinine Ratio Glucose POC Glucose Calculated Osmolality Lactic Acid Calcium Total Bilirubin Direct Bilirubin Indirect Bilirubin AST ALT Alkaline Phosphatase Ammonia Total Creatine Kinase CK-MB (CK-2) CK and CKMB Interp Troponin I B-Natriuretic Peptide Total Protein Albumin Globulin Albumin/Globulin Ratio Lipase Urine Color Urine Appearance Urine pH Ur Specific [place] Urine Protein Urine Glucose (UA) Urine Ketones Urine Blood Urine Nitrate Urine Bilirubin Urine Urobilinogen Urine Leukocytes Urine RBC Urine WBC Urine Bacteria Hyaline Casts Urine Mucus Ur Culture Indicated? Salicylates Acetaminophen Hepatitis A IgM Ab Negative Hep Bs Antigen Negative Hep B Core IgM Ab Negative Hepatitis C Antibody Negative
[2016-10-23] MEDS ORDERED: ENOXAPARIN 40 MG/0.4 ML SYRINGE SUBCUT ONE (18:19)
[2016-10-23] MEDS: LACTATED RINGERS 1,000 ML IV SCH (18:33)
[2016-10-23] MEDS ORDERED: DEXTROSE 5% IV STA (18:36)
[2016-10-23] MEDS ORDERED: ACETYLCYSTEINE IV STA (18:36)
[2016-10-23 19:37] LABS: Acetaminophen 6.7 UG/ML (10-30); Salicylate < 2.8 MG/DL (2.8-20)
[2016-10-23 19:41] LABS: CKMB % 2.3 %
[2016-10-23 19:51] LABS: Troponin I Only 2.42 NG/ML (0.00-0.045)
[2016-10-23] MEDS ORDERED: ACETYLCYSTEINE IV ONE (20:00)
[2016-10-23] MEDS ORDERED: DEXTROSE 5% IV ONE (20:00)
--- NOTE | 2016-10-23 20:02 | CT Report ---
CT head/brain wo con Indication: Altered mental status. Recent CVA. Comparison: CT brain 10/21/2016. Technique: CT of the brain was performed without administration of intravenous contrast. The CT examination was performed using one or more of the following dose reduction techniques: Automatic exposure control, adjustment of the mA and kV according to patient size, use of acute or iterative reconstruction techniques. Findings: There has been interval evolution of infarction with a large focal area of hypoattenuation now extending from the cortex and white matter of the right occipital lobe as well as medial cortex of the right occipital lobe inferiorly into the temporal lobe. Small foci of increased attenuation present round oval in shape measuring up to 5 mm have developed in suggest hemorrhagic transformation. Cerebral hemispheres are otherwise appears stable. Small lacunar infarcts within the left thalamus appear stable. Interval development of low attenuation bilaterally within the genu of the internal capsules is nonspecific and could reflect sequelae of hypoxemia. The basal cisterns are patent. No significant abnormality is demonstrated to involve the posterior fossa or cerebellum. Orbits and globes demonstrate no evidence of significant pathology. Moderate mucoperiosteal thickening involves the maxillary and ethmoid air cells with air-fluid level suggested within the maxillary sinuses. No significant abnormality is demonstrated to involve the mastoid air cells. The calvarium and overlying soft tissues demonstrate no evidence of acute pathology. Impression: 1. Evolution of right MCA infarction is demonstrated with some areas of increased attenuation worrisome for hemorrhagic transformation. The area of actual infarction has increased since comparison study now to involve the medial and posterior cortex of the right occipital lobe as well as right temporal lobe. 2. Decreased attenuation bilaterally present within the genu of the internal capsules has developed since comparison study. This could reflect sequelae of hypoxemia. 3. Pansinusitis. 10/23/2016 7:55 PM PROCEDURE INTERPRETED AT [facility] DEPARTMENT OF RADIOLOGY Final Report Signed by: Dr. Abdi Mariscal
--- NOTE | 2016-10-23 20:24 | Pulmonology Consult Note ---
Assessment and Plan (1) Acute respiratory failure Status: Acute Assessment and plan: Patient was found unresponsive and having respiratory difficulties and is now intubated on the ventilator. She is fairly stable and will adjust her ventilator. Current Visit: Yes (2) chronic pain Status: Chronic Assessment and plan: Patient apparently takes a lot of narcotics and may have overdosed. Current Visit: No (3) Hypertension Status: Chronic Assessment and plan: Patient's blood pressure and heart rate are stable at present. Current Visit: No (4) COPD (chronic obstructive pulmonary disease) Status: Chronic Assessment and plan: Patient has a history of COPD and will continue with bronchodilator therapy Current Visit: No (5) Elevated troponin Status: Acute Assessment and plan: Patient has elevated cardiac enzymes and will be evaluated by cardiology. Current Visit: Yes (6) Drug overdose Status: Acute Assessment and plan: Patient is felt to have had a narcotic overdose. Her acetaminophen levels will be evaluated also Current Visit: Yes (7) Elevated transaminase level Status: Acute Assessment and plan: She has elevated liver enzymes and GI is evaluating Current Visit: Yes History of Present Illness Chief complaint: Ventilator management History of present illness: Ms. Eubanks is a 61 year old white female that apparently has a history of depression along with hypertension and possibly COPD. History of rheumatoid arthritis and previous strokes. She was sent down from [facility] with a possible drug overdose. She presented with lethargy and respiratory distress and is intubated. She apparently has recently had a carotid endarterectomy. She apparently has a lot of back pain and takes narcotics. A bottle of pills was found at her bedside. She is starting to arouse and move around now. Home Medications Medication Instructions Recorded Confirmed Type Aspirin [Ecotrin] 81 mg PO DAILY 10/03/16 10/15/16 History Buspirone HCl 7.5 mg PO BID 10/03/16 10/23/16 History Clopidogrel [Plavix] 1 tablet PO DAILY 10/03/16 10/23/16 History Diazepam Tab [Valium Tab] 2 mg PO BID 10/03/16 10/15/16 History Losartan [Cozaar] 50 mg PO DAILY 10/03/16 10/23/16 History Rosuvastatin [Crestor] 1 tablet PO DAILY 10/03/16 10/15/16 History Temazepam [Restoril] 15 mg PO BEDTIME PRN 10/03/16 10/15/16 History Albuterol Inhaler [Proventil 2 puff INH Q4HR 10/09/16 10/15/16 History Inhaler] fentaNYL [Fentanyl 50 mcg/hr Patch] 1 patch TRANSDERM Q3DAY 10/09/16 10/15/16 History HYDROcodone/ACETAMIN 10-325 [[place] 1 tablet PO Q4-6H PRN #20 10/17/16 10/23/16 Rx 10-325] Allergies Allergy/AdvReac Type Severity Reaction Status Date / Time morphine Allergy Severe SHORTNESS Verified 10/15/16 07:07 OF BREATH ROS unobtainable: due to endotracheal tube (She is unable to give any history at present) Exam (Pulmonay) H&P - Constitutional Vitals: Period Temp Pulse Resp BP Sys/Martinez Pulse Ox Last 24 Hr 97.8 F 71-78 14-19 129-160/86-113 97-100 General appearance: normal weight, no acute distress (She appears comfortable on the ventilator) - Head Head exam: Present: normal inspection, normocephalic - Eye Eye exam: Present: EOMI. Absent: scleral icterus Pupils: Present: XAVIER - ENT ENT exam: Present: normal exam, other (ET tube is in good position) - Neck Neck exam: Absent: lymphadenopathy, thyromegaly - Respiratory Respiratory exam: Present: rhonchi. Absent: accessory muscle use, wheezes - Cardiovascular Cardiovascular exam: Present: regular rate and rhythm. Absent: gallop, systolic murmur - GI/Abdominal GI/Abdominal exam: Present: soft. 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 Way), Osteoporosis Reproductive: History of: Abnormal Pap Smear (pre-cancerous cells with removal.) Other: No history of: Anesthesia Reactions - Surgical History HEENT Surgeries: Surgical HX of: Eye Surgery (Cataract removal.) Abdominal Surgeries: Surgical HX of: Abdominal Surgery, Appendectomy, Gastric Bypass Surgery Reproductive Surgeries: Surgical HX of;: Hysterectomy Orthopedic Surgeries: Surgical HX of;: Orthopedic Surgery (Left Rotator Cuff Repair.) - Family History Family History: Reports;: Family Cancer, Family Diabetes, Family Heart Disease, Family Hypertension, Family Psychiatric Problems, Family Stroke - Social History Smoking Status: Former smoker Frequency of Alcohol Use: Unknown Type of Drug Use: Unknown Results - Labs CBC & BMP: 10/23/16 14:58 10/23/16 14:58 Labs: Her PO2 is 83 with a PCO2 44 and a pH of 7.46 - Diagnostic Findings Procedure: Chest x-ray: image reviewed by me, report reviewed by me (Chest x- ray showed minimal perihilar infiltrates.)
--- NOTE | 2016-10-23 20:26 | Gastrointestinal Consult Note ---
Assessment and Plan (1) Elevated transaminase level Status: Acute Assessment and plan: The acetaminophen level at 1600 has come back at 6.7mcg/ml, this is below the treatment threshold (63.07 mcg/ml) according to the [facility] for tylenol overdose. In my mind this is much more likely to be a narcotic overdose from a combination of the patient's fentanyl patch probably several of her [place] 10-325 mg in addition to some ischemia possibly secondary to hypertension versus myocardial infarction resulting in ischemic hepatitis. I suspect will be able to tell fairly shortly whether or not this is the case as her numbers bounce back towards normal in another 3-5 days. They may certainly worsen between now and then, the treatment is mostly supportive. I believe we can likely discontinue the Tylenol protocol, as it seems that she would would have had to take a significant portion of the entire bottle to get a toxic effect from the Tylenol portion of the [place]. This patient may need to rethink living at home or at least find some way to have her medications dispensed to her going forward. Current Visit: Yes (2) Guaiac positive stools Status: Acute Assessment and plan: This patient has some mild anemia with hematocrit of 36%. She has guaiac positive stools which are not surprising considering the ischemia she is likely going through. We will continue to watch her for shaunna GI bleed. Upper and lower endoscopy may depend on the results of the above. We will watch her for hematocrit drop over time. I do not anticipate upper and lower endoscopy unless bleeding is suspected this admission. Current Visit: Yes History of Present Illness Chief complaint: Probable ischemic hepatitis, Tylenol overdose? History of present illness: who has a history of prior strokes who is been recently admitted to the hospital by Dr. Oliva for right carotid endarterectomy and discharged on who is usually free living at home but has become forgetful recently. Her family gives a history of the patient being alert and awake at 7:00 and asleep by 715 this morning and was later found unresponsive by her brother at about 10: 00 in the afternoon. EMS was alerted and the patient was unarousable. It is hypothesized that she may have taken several of her [place] this as several pill bottles were found nearby her and the patient does have chronic pain from her spinal stenosis/rheumatoid arthritis. She was taken to [place] where she was found to have an elevated troponin level, she did awaken quite violently with Narcan initially given there but because of combativeness was sedated and placed on the ventilator. By report the troponin was up to 1.89 with a CK-MB of 7.3. I have been consulted due to elevations in her ALT and AST currently at 534 and 1516 respectively. Alkaline phosphatase is 149 with a total bilirubin of 0.6 and a direct bilirubin 0.4. Ammonia level is a surprising 21. The patient's troponin has increased from 12 noon at 1.89 to 2.42 at 1600. The acetaminophen level at 1600 has come back at 6.7mcg/ml, this is below the treatment threshold (63.07 mcg/ml) [facility]. In my mind this is much more likely to be a narcotic overdose from a combination of the patient's fentanyl patch probably several of her [place] 10-325 mg. The patient is not able to give any further history as she she is on a propofol drip and on the vent. Home Medications Medication Instructions Recorded Confirmed Type Aspirin [Ecotrin] 81 mg PO DAILY 10/03/16 10/15/16 History Buspirone HCl 7.5 mg PO BID 10/03/16 10/23/16 History Clopidogrel [Plavix] 1 tablet PO DAILY 10/03/16 10/23/16 History Diazepam Tab [Valium Tab] 2 mg PO BID 10/03/16 10/15/16 History Losartan [Cozaar] 50 mg PO DAILY 10/03/16 10/23/16 History Rosuvastatin [Crestor] 1 tablet PO DAILY 10/03/16 10/15/16 History Temazepam [Restoril] 15 mg PO BEDTIME PRN 10/03/16 10/15/16 History Albuterol Inhaler [Proventil 2 puff INH Q4HR 10/09/16 10/15/16 History Inhaler] fentaNYL [Fentanyl 50 mcg/hr Patch] 1 patch TRANSDERM Q3DAY 10/09/16 10/15/16 History HYDROcodone/ACETAMIN 10-325 [[place] 1 tablet PO Q4-6H PRN #20 10/17/16 10/23/16 Rx 10-325] Allergies Allergy/AdvReac Type Severity Reaction Status Date / Time morphine Allergy Severe SHORTNESS Verified 10/15/16 07:07 OF BREATH Medical,Surgical,& Family Hx - Medical History Cardio: History of: Hypertension Psychological: History of: Anxiety Disorders, Depression Neurology: History of: Cerebrovascular Accident, Peripheral Neuropathy HEENT: History of: Eye Problem (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 Way), Osteoporosis Reproductive: History of: Abnormal Pap Smear (pre-cancerous cells with removal.) Other: No history of: Anesthesia Reactions - Surgical History HEENT Surgeries: Surgical HX of: Eye Surgery (Cataract removal.) Abdominal Surgeries: Surgical HX of: Abdominal Surgery, Appendectomy, Gastric Bypass Surgery Reproductive Surgeries: Surgical HX of;: Hysterectomy Orthopedic Surgeries: Surgical HX of;: Orthopedic Surgery (Left Rotator Cuff Repair.) - Family History Family History: Reports;: Family Cancer, Family Diabetes, Family Heart Disease, Family Hypertension, Family Psychiatric Problems, Family Stroke - Social History Smoking Status: Former smoker Frequency of Alcohol Use: Unknown Type of Drug Use: Unknown ROS unobtainable: due to endotracheal tube Exam - Constitutional Vitals: Period Temp Pulse Resp BP Sys/Martinez Pulse Ox Last 24 Hr 97.8 F 71-78 14-19 129-160/86-113 97-100 General appearance: normal weight - Head Head exam: Present: normocephalic, atraumatic - Eye Eye exam: Present: other (Lens implants noted bilaterally). Absent: scleral icterus - Neck Neck exam: Present: other (There appears to be some edema of the neck patient does have a well-healing CEA scar along her right carotid) - Respiratory Respiratory exam: Present: clear to auscultation bilaterally. Absent: rales, rhonchi, stridor - Cardiovascular Cardiovascular exam: Present: regular rate and rhythm - GI/Abdominal GI/Abdominal exam: Present: hypoactive bowel sounds, soft, other (Stool is notable for being brown and trace guaiac positive.). Absent: distended, tenderness, rebound - Extremities Exam Extremities exam: Present: edema (Trace at the ankles), other (Fingernails and toenails show signs recent manicure/pedicure) - Neurological Exam Neurological exam: Present: altered (The patient is sedated and on the vent) - Psychiatric Psychiatric exam: Present: other (Unable to assess) - Skin Skin exam: Present: warm Results - Labs CBC & BMP: 10/23/16 14:58 10/23/16 14:58
[2016-10-23] MEDS ORDERED: ENOXAPARIN 60 MG/0.6 ML SYRINGE SUBCUT ONE (21:00)
[2016-10-23 21:05] LABS: Hepatitis A Ab IgM Quant 0.16 Index; Hepatitis A Ab IgM Result Negative (Negative); Hepatitis B Core IgM Quant 0.22 Index; Hepatitis B Core IgM Result Negative (Negative); Hepatitis B Surface Ag Quant < 0.10 Index; Hepatitis B Surface Ag Result Negative (Negative); Hepatitis C Virus Ab Quant 0.12 Index; Hepatitis C Virus Ab Result Negative (Negative)
[2016-10-23 22:08] LABS: Barbiturates Screen,Urine Negative (Negative); Benzodiazepines Screen,Urine Positive (Negative); Cannabinoid Screen,Urine Negative (Negative); Opiate Screen,Urine Positive (Negative); Phencyclidine Screen,Urine Negative (Negative)
--- NOTE | 2016-10-23 22:10 | Event Note ---
This is long a 61-year-old woman had a right cerebrovascular accident in early September found to have high-grade right carotid stenosis she underwent right carotid endarterectomy last week and did apparently well was discharged home I saw her in the office yesterday for follow-up and staple removal she seem to be doing well with walking comfortably and had no complaints. Apparently though she was seen in the emergency room here on Saturday evening and was evaluated for headache and I was not aware of that visit she did not mention it when I saw her yesterday. She was found unresponsive at home this morning is been treated and [facility] and transferred here for a follow-up CT indicates probable reperfusion injury with some hemorrhage and increasing stroke in the right brain. There are also changes in her liver enzymes are quite significant and apparently with some cardiac isoenzymes are quite significant but we have no history to absolutely tell me what this is from. She is unresponsive on the ventilator and CCU off of propofol. She is not a candidate for TPA with hemorrhagic changes in the brain and the recent carotid surgery I do not think we should continue Lovenox or aspirin at this point in time due to this suggestion hemorrhage in the brain. I discussed situation with her younger sister who is a nurse that works with Dr. Hutchinson in [place] lying that it appears to me she has extended her stroke or had a reperfusion injury and that at this point support is all that I can recommend to offer. There was concern about hematoma in her right neck but this is modest swelling and thickening that is common with this surgery and is not what I would consider a large hematoma and certainly no larger than when I saw her in the office yesterday. I will continue to follow her here
[2016-10-23 22:12] LABS: CKMB % 1.8 %
[2016-10-23 22:37] LABS: Troponin I Only 2.34 NG/ML (0.00-0.045)
--- NOTE | 2016-10-23 22:47 | Event Note ---
Received a call from nursing staff with the CT report of her brain. There is concern of a possible hemorrhagic transformation of her stroke. Appears that her stroke has extended. We need to have neurology consulted on this patient. I discussed the case with Dr. Bennett and he said that her Tylenol level was not high enough to support a Tylenol overdose. Therefore the N-acetylcysteine will be DC'd. We got Dr. Monet on the case secondary to his concerns about swelling on her right neck. He saw her in consultation tonight. We appreciate Dr. Oliva seeing her. I have ordered a repeat CT scan in the morning to monitor the stroke.
--- NOTE | 2016-10-23 22:51 | Ultrasound Report ---
US abdomen Indication: Elevated liver function studies and creatinine. Comparison: None. Technique: Using transcutaneous probe, ultrasound imaging of the abdomen was performed. Ultrasound images were captured and stored. Interrogated structures include the liver, gallbladder, spleen, pancreas, right kidney, left kidney, aorta, and inferior vena cava. Findings: Longitudinal images of the aorta demonstrate no significant abnormality. The distal aorta is obscured by bowel gas. Color flow is present within the inferior vena cava. The pancreas demonstrates no significant abnormality. Trace amount of free fluid suggested along the margin of the liver. The liver demonstrates no evidence of focal hepatic mass. The right hepatic lobe measures approximately 16 cm in craniocaudal dimension. Color flow is present within the interrogated portal and hepatic venous segments. Common bile duct is normal in size measuring 3.5 mm. The gallbladder wall is thickened measuring 4.4 mm. On some images curvilinear hypoattenuation compatible with fluid is noted. No gallstones are demonstrated. Right kidney measures 10.4 cm in craniocaudal dimension and is otherwise unremarkable. Left kidney measures 8.5 cm in craniocaudal dimension and is otherwise unremarkable. Spleen is normal in size and appearance. Impression: 1. Small amount free fluid adjacent to margin of the liver were additionally within the gallbladder fossa is demonstrated. Additional gallbladder wall thickening is present. A calculus cholecystitis is not excluded. 2. No acute findings are otherwise demonstrated. 10/23/2016 10:15 PM PROCEDURE INTERPRETED AT [facility] DEPARTMENT OF RADIOLOGY Final Report Signed by: Dr. Abdi Mariscal
[2016-10-23] MEDS ORDERED: NITROPRUSSIDE 100 MG in DEXTROSE 5% 246 ML IV SCH (23:00)
[2016-10-23] MEDS: CARVEDILOL 3.125 MG TABLET PO SCH (23:03)
[2016-10-24] MEDS ORDERED: ACETYLCYSTEINE IV ONE
[2016-10-24] MEDS ORDERED: DEXTROSE 5% IV ONE
[2016-10-24 01:29] LABS: CKMB % 1.7 %
[2016-10-24 01:51] LABS: Troponin I Only 3.56 NG/ML (0.00-0.045)
[2016-10-24] MEDS: PROPOFOL 1,000 MG/100 ML BOTTLE IV SCH ×4 (03:20→19:40)
[2016-10-24 03:48] LABS: ABG Base Excess 1.1 MMOL/L (-2.5-2.5); ABG HCO3 23.6 MMOL/L (20-26); ABG Oxygen Saturation 89.2 % (95-100); ABG PCO2 29.4 MM HG (35-48); ABG PH 7.522 (7.35-7.45); ABG PO2 56.3 MM HG (80-95); ABG TCO2 24.5 MMOL/L (23-27); Allen Test Positive; Pt O2 Delivery Device Ventilator
[2016-10-24] MEDS: ALBUTEROL/IPRATROPIUM 3 ML NEB RESP TX SCH ×4 (04:26→20:53)
[2016-10-24 05:00] LABS: Basophils % 0.1 % (0.0-0.8); Hematocrit 33.6 VOL% (35.7-47.0); Hemoglobin 10.9 GM/DL (12.0-16.0); Immature Granulocytes % 0.4 %; Immature Granulocytes Absolute 0.04 #; Lymphocytes # 1.4 10*3/uL (1.4-4.0); Lymphocytes % 13.5 % (21.3-54.2); Mean Corpuscular HGB Conc 32.4 GM/DL (32-36); Mean Corpuscular Hemoglobin 30 PG (27-34); Mean Corpuscular Volume 91.1 FL (87-102); Mean Platelet Volume 10.8 FL (9.6-12.0); Monocytes # 0.7 10*3/uL (0.11-0.8); Monocytes % 6.6 % (1.7-12.7); Neutrophils # 8.3 10*3/uL (1.4-7.4); Neutrophils % 79.4 % (38.7-73.9); Platelet Count 185 T/CUMM (130-400); Red Blood Count 3.69 MC/CUMM (3.8-5.5); Red Cell Distribution Width 15.6 % (9.3-17.3); White Blood Count 10.5 T/CUMM (4-12)
[2016-10-24 05:07] LABS: INR 1.3
[2016-10-24 05:09] LABS: INR 1.3; Partial Thromboplastin Time 29.1 SECS (0-40)
[2016-10-24 05:17] LABS: Lactic Acid 1.6 MMOL/L (0.4-2.0)
[2016-10-24 05:31] LABS: Calcium 7.8 MG/DL (8.5-10.1); Osmolality,Calculated 293.4 MOS/KG (273-304); Risk Ratio 2.12
[2016-10-24 05:37] LABS: Albumin 2.4 G/DL (3.4-5.0); Bilirubin,Direct 0.2 MG/DL (0.0-0.20); Bilirubin,Indirect 0.5 MG/DL (0.0-1.0); Bilirubin,Total 0.7 MG/DL (0.2-1.0); Total Protein 4.8 G/DL (6.4-8.3)
--- NOTE | 2016-10-24 06:37 | EKG Report ---
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
--- NOTE | 2016-10-24 06:38 | EKG Report ---
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
--- NOTE | 2016-10-24 06:38 | EKG Report ---
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
--- NOTE | 2016-10-24 06:39 | EKG Report ---
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
--- NOTE | 2016-10-24 07:05 | XRay Report ---
Referring Physician: Satya Forbes MD Exam: XR chest 1V portable Date: October 24, 2016 at 3:23 AM Reason: Ventilator Comparison: Chest one view portable October 23, 2016 Findings: An endotracheal tube and feeding tube are again in place. The distal tip of the endotracheal tube projects approximately 0.7 cm above the marnie. The cardiac silhouette is normal in size. There are bibasilar opacities, left greater than right. This likely represents atelectasis, but there could also be pneumonia. No pneumothorax is identified the osseous structures appear stable. Impression: The distal tip of the endotracheal tube projects approximately 0.7 cm above the marnie. The study is otherwise similar to before. PROCEDURE INTERPRETED AT [facility] DEPARTMENT OF RADIOLOGY Final Report Signed by: Dr. Loraine Morales
--- NOTE | 2016-10-24 08:14 | EKG Report ---
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
--- NOTE | 2016-10-24 08:15 | Cardiology Progress Note ---
<Aixa Montague E - Last Filed: 10/24/16 08:50> Assessment and Plan - Time spent with patient Time spent with patient: Less than 30 minutes (1) Elevated troponin Status: Acute Assessment and plan: SEE PLAN OF CARE LISTED BELOW. Current Visit: Yes (2) Respiratory distress Status: Acute Assessment and plan: SEE PLAN OF CARE LISTED BELOW. Current Visit: Yes (3) Drug overdose Status: Acute Assessment and plan: SEE PLAN OF CARE LISTED BELOW. Current Visit: Yes (4) Hypertension Status: Chronic Assessment and plan: SEE PLAN OF CARE LISTED BELOW. Current Visit: No (5) Chronic pain syndrome Status: Chronic Assessment and plan: SEE PLAN OF CARE LISTED BELOW. Current Visit: No (6) Carotid stenosis Status: Chronic Assessment and plan: SEE PLAN OF CARE LISTED BELOW. 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 Current Visit: No (8) History of CHF (congestive heart failure) Status: Chronic Assessment and plan: SEE PLAN OF CARE LISTED BELOW. Current Visit: Yes (9) MIKE (obstructive sleep apnea) Status: Chronic Assessment and plan: SEE PLAN OF CARE LISTED BELOW. Current Visit: Yes (10) COPD (chronic obstructive pulmonary disease) Status: Chronic Assessment and plan: SEE PLAN OF CARE LISTED BELOW. Current Visit: No (11) Dyslipidemia Status: Chronic Assessment and plan: SEE PLAN OF CARE LISTED BELOW. Current Visit: Yes (12) Elevated transaminase level Status: Acute Assessment and plan: SEE PLAN OF CARE LISTED BELOW. 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 Higgins Ms. Eubanks is a 61 year old female who was directly admitted to our facility from [facility]. She has a history of hypertension, depression and anxiety, COPD, pneumonia, stroke, rheumatoid arthritis, congestive heart failure, and obstructive sleep apnea. She is s/p right cardotid endarterectomy on 10/15/[address] Oliva. She is intubated and on mechanical ventilation after being unresponsive at home prior to admission. She has had a suspected drug overdose. Her family reports she has difficulty with remembering to take medications and remembering whether or not she has already taken medications. We were consulted to see her due to an elevated troponin. Upon arrival to [facility], her troponin was 0.497. Her CK-MB was 4.1. EKG showed NSR with mild ST depression anterolaterally. We do not have prior records of her having seen a drier helper at [facility] nor at [facility]. After I saw him as long last night, she was taken for head CT which revealed possible hemorrhagic conversion of her recent stroke. I had initially ordered her some anticoagulation but this was discontinued and will not be able to further anticoagulate her. We will defer antiplatelet management to the hospitalist service, neurology, and Dr. Oliva. ASSESSMENT/PLAN: 1. ELEVATED TROPONIN - Unsure whether patient has had recent cardiac symptoms. EKG shows mild ST-T changes from previous EKG done 10/09/16. Troponin peak was 3.56, CPK 300, CK-MB 7.3. We do not have records of her previously undergoing cardiac evaluation at our facility. Given the recent hemorrhagic conversion of her stroke, she is not a candidate for anticoagulation. At this time, we will continue medical management and follow her progress. 2. RESPIRATORY FAILURE - Currently intubated and on mechanical ventilation. Pulmonology is following. 3. SUSPECTED DRUG OVERDOSE - Urine toxicology was positive for opiates and benzodiazepines. 4. HYPERTENSION - Will continue home medication. Will monitor and adjust medications accordingly during hospitalization. Creatinine is down to 1.3 today. We have started her on a beta-kris will continue to adjust this dosage for optimal blood pressure control. Will further discuss with Dr. Higgins prior to reintroduction of her ARB. We will try to avoid any other nephrotoxic therapies. 5. CHRONIC PAIN - Related to spinal stenosis, rheumatoid arthritis. Reportedly takes [place] and Fentanyl patches at home. 6. CAROTID STENOSIS - S/P right carotid endarterectomy 10/15/[address] Oliva. She was recently evaluated in the emergency room on 10/21/2016 for complaints of severe headache. Head CT was done at that time showed no acute abnormality. She followed up with Dr. Oliva on Saturday and did not mention these events to him. 7. HISTORY OF CVA - History of recent CVA with memory impairment and impaired peripheral visual acuity. Repeat head CT done 10/23/2016 revealed increased attenuation worrisome for hemorrhagic transformation of her recent stroke. According to the report, the area of actual infarction has increased since the comparison study now to involve the medial and posterior cortex of the right occipital lobe as well as the right temporal lobe. Neurology has been consulted. 8. HISTORY OF CHF - BNP unremarkable at 237. Echocardiogram is pending. 9. OBSTRUCTIVE SLEEP APNEA - Currently on mechanical ventilation. Continue CPAP once off vent. 10. COPD - Currently on mechanical ventilation. Pulmonology is following. 11. DYSLIPIDEMIA - Lipid panel revealed triglycerides 215, cholesterol 104, LDL 38, HDL 49. Will hold off on statin therapy pending the improvement of her elevated LFTs. 12. ELEVATED TRANSAMINASE LEVEL - She has elevated LFT's. GI is following. Dr. Higgins to follow with further plan and addendum. Exam (Progress Note) - Constitutional Vitals: Period Temp Pulse Resp BP Sys/Martinez Pulse Ox Last 24 Hr 97.8 F-99.0 F 62-100 10-20 125-181/77-113 93-100 Exam: General appearance: Orally intubated and sedated on ventilator. Normal weight, no acute distress. - Head Head exam: Present: normal inspection, normocephalic, atraumatic. Absent: hematoma, laceration - Eye Eye exam: Present: EOMI. Absent: conjunctival injection, nystagmus, periorbital swelling, scleral icterus, laceration to eyelids Pupils: Present: PERRL. Absent: constricted, dilated, fixed, irregular, unequal - ENT ENT exam: Present: Orally intubated, normal external ear exam. NGT in place. - Neck Neck exam: Present: normal inspection. Absent: lymphadenopathy, meningismus, tenderness, thyromegaly - Respiratory Respiratory exam: Present: Mechanically ventilated breath sounds. Absent: accessory muscle use - Cardiovascular Cardiovascular exam: Present: regular rate and rhythm. Absent: carotid bruit, gallop, JVD, rubs, murmur - GI/Abdominal GI/Abdominal exam: Present: normal bowel sounds, soft. Absent: distended, firm , guarding, hernia, mass, tenderness, rebound. - Extremities Exam Extremities exam: Present: normal inspection, normal capillary refill. Upper extremity pulses 2+. Lower extremity pulses 2+. Absent: calf tenderness, edema - Back Exam Back exam: Present: Unable to examine due to habitus. Sedated on mechanical ventilator. - Neurological Exam Neurological exam: Present: Limited due to habitus (on ventilator). Follows some commands. No resting or essential tremor. - Psychiatric Psychiatric exam: Present: Unable to adequately assess due to patient being sedated and on mechanical ventilation. - Skin Skin exam: Present: normal color, warm, dry, intact. Absent: cyanosis, diaphoretic, rash, urticaria Result/EKG - Labs CBC & BMP: 10/24/16 04:39 10/24/16 04:39 Lab Results: I have reviewed the past 24 hour labs Labs: Laboratory Results - last 24 hr 10/23/16 10/23/16 10/23/16 14:49 14:50 14:58 WBC RBC Hgb Hct MCV MCH MCHC RDW Plt Count MPV Neut % (Auto) Lymph % (Auto) [place] % (Auto) Eos % (Auto) Baso % (Auto) Neut # (Auto) Lymph # (Auto) [place] # (Auto) Eos # (Auto) Baso # (Auto) Immature Gran % Nucleated RBC % Immature Gran # Nucleated RBCs # INR PT Patient/Control Mix Circ Anticoag PTT ABG pH ABG pCO2 ABG pO2 ABG HCO3 ABG Total CO2 ABG O2 Saturation ABG Base Excess FiO2 Sodium Potassium Chloride Carbon Dioxide Anion Gap BUN Creatinine GFR Calculation BUN/Creatinine Ratio Glucose POC Glucose Hemoglobin A1c Calculated Osmolality Lactic Acid Calcium Magnesium Total Bilirubin Direct Bilirubin Indirect Bilirubin AST ALT Alkaline Phosphatase Ammonia 21 Total Creatine Kinase 235 H CK-MB (CK-2) 7.3 H CK and CKMB Interp 3.1 Troponin I 1.890 H B-Natriuretic Peptide Total Protein Albumin Globulin Albumin/Globulin Ratio Triglycerides Cholesterol LDL Cholesterol VLDL Cholesterol HDL Cholesterol Heart Disease Risk Ratio Lipase Urine Color Yellow Urine Appearance Clear Urine pH 8.0 Ur Specific [place] 1.010 Urine Protein 30 Urine Glucose (UA) Negative Urine Ketones 5 Urine Blood Small Urine Nitrate Negative Urine Bilirubin Negative Urine Urobilinogen 2.0 H Urine Leukocytes Negative Urine RBC 1 Urine WBC 5 Urine Bacteria Occasional Hyaline Casts 5 Urine Mucus Occasional Ur Culture Indicated? Not indicated Salicylates Urine Opiates Screen Acetaminophen Ur Barbiturates Screen Ur Phencyclidine Scrn U Amphetamine/Methamph U Benzodiazepines Scrn U Cocaine Metab Screen U Cannabinoids Screen Hepatitis A IgM Ab Hep Bs Antigen Hep B Core IgM Ab Hepatitis C Antibody 10/23/16 10/23/16 10/23/16 14:58 14:58 14:58 WBC 8.4 RBC 3.85 Hgb 11.5 L Hct 36.8 MCV 95.6 MCH 30 MCHC 31.3 L RDW 15.0 Plt Count 162 MPV 9.8 Neut % (Auto) 80.9 H Lymph % (Auto) 10.3 L [place] % (Auto) 8.4 Eos % (Auto) 0.0 Baso % (Auto) 0.0 Neut # (Auto) 6.8 Lymph # (Auto) 0.9 L [place] # (Auto) 0.7 Eos # (Auto) 0.0 Baso # (Auto) 0.0 Immature Gran % 0.4 Nucleated RBC % 0.0 Immature Gran # 0.03 Nucleated RBCs # 0.00 INR 1.3 PT Patient/Control Mix 13.5 Circ Anticoag PTT ABG pH ABG pCO2 ABG pO2 ABG HCO3 ABG Total CO2 ABG O2 Saturation ABG Base Excess FiO2 Sodium 147 H Potassium 4.3 Chloride 106 Carbon Dioxide 33 H Anion Gap 12.3 BUN 12 Creatinine 1.60 H GFR Calculation 33 BUN/Creatinine Ratio 7.00 Glucose 100 POC Glucose Hemoglobin A1c Calculated Osmolality 291.4 Lactic Acid 3.6 H Calcium 7.8 L Magnesium Total Bilirubin 0.60 Direct Bilirubin Indirect Bilirubin AST 1516 H ALT 535 H Alkaline Phosphatase 156 H Ammonia Total Creatine Kinase CK-MB (CK-2) CK and CKMB Interp Troponin I B-Natriuretic Peptide Total Protein 5.3 L Albumin 2.8 L Globulin 2.5 Albumin/Globulin Ratio 1.1 Triglycerides Cholesterol LDL Cholesterol VLDL Cholesterol HDL Cholesterol Heart Disease Risk Ratio Lipase Urine Color Urine Appearance Urine pH Ur Specific [place] Urine Protein Urine Glucose (UA) Urine Ketones Urine Blood Urine Nitrate Urine Bilirubin Urine Urobilinogen Urine Leukocytes Urine RBC Urine WBC Urine Bacteria Hyaline Casts Urine Mucus Ur Culture Indicated? Salicylates Urine Opiates Screen Acetaminophen Ur Barbiturates Screen Ur Phencyclidine Scrn U Amphetamine/Methamph U Benzodiazepines Scrn U Cocaine Metab Screen U Cannabinoids Screen Hepatitis A IgM Ab Hep Bs Antigen Hep B Core IgM Ab Hepatitis C Antibody 10/23/16 10/23/16 10/23/16 14:58 14:58 15:00 WBC RBC Hgb Hct MCV MCH MCHC RDW Plt Count MPV Neut % (Auto) Lymph % (Auto) [place] % (Auto) Eos % (Auto) Baso % (Auto) Neut # (Auto) Lymph # (Auto) [place] # (Auto) Eos # (Auto) Baso # (Auto) Immature Gran % Nucleated RBC % Immature Gran # Nucleated RBCs # INR PT Patient/Control Mix Circ Anticoag PTT ABG pH 7.467 H ABG pCO2 44.6 ABG pO2 83.8 ABG HCO3 31.3 H ABG Total CO2 28.8 H ABG O2 Saturation 96.5 ABG Base Excess 7.6 H FiO2 65.00 Sodium Potassium Chloride Carbon Dioxide Anion Gap BUN Creatinine GFR Calculation BUN/Creatinine Ratio Glucose POC Glucose Hemoglobin A1c Calculated Osmolality Lactic Acid Calcium Magnesium Total Bilirubin 0.60 Direct Bilirubin 0.40 H Indirect Bilirubin 0.2 AST 1516 H ALT 534 H Alkaline Phosphatase 149 H Ammonia Total Creatine Kinase CK-MB (CK-2) CK and CKMB Interp Troponin I B-Natriuretic Peptide 237 H Total Protein 5.3 L Albumin 2.8 L Globulin Albumin/Globulin Ratio Triglycerides Cholesterol LDL Cholesterol VLDL Cholesterol HDL Cholesterol Heart Disease Risk Ratio Lipase 85.0 Urine Color Urine Appearance Urine pH Ur Specific [place] Urine Protein Urine Glucose (UA) Urine Ketones Urine Blood Urine Nitrate Urine Bilirubin Urine Urobilinogen Urine Leukocytes Urine RBC Urine WBC Urine Bacteria Hyaline Casts Urine Mucus Ur Culture Indicated? Salicylates Urine Opiates Screen Acetaminophen Ur Barbiturates Screen Ur Phencyclidine Scrn U Amphetamine/Methamph U Benzodiazepines Scrn U Cocaine Metab Screen U Cannabinoids Screen Hepatitis A IgM Ab Hep Bs Antigen Hep B Core IgM Ab Hepatitis C Antibody 10/23/16 10/23/16 10/23/16 15:35 18:10 18:19 WBC RBC Hgb Hct MCV MCH MCHC RDW Plt Count MPV Neut % (Auto) Lymph % (Auto) [place] % (Auto) Eos % (Auto) Baso % (Auto) Neut # (Auto) Lymph # (Auto) [place] # (Auto) Eos # (Auto) Baso # (Auto) Immature Gran % Nucleated RBC % Immature Gran # Nucleated RBCs # INR PT Patient/Control Mix Circ Anticoag PTT ABG pH ABG pCO2 ABG pO2 ABG HCO3 ABG Total CO2 ABG O2 Saturation ABG Base Excess FiO2 Sodium Potassium Chloride Carbon Dioxide Anion Gap BUN Creatinine GFR Calculation BUN/Creatinine Ratio Glucose POC Glucose 118 H Hemoglobin A1c Calculated Osmolality Lactic Acid Calcium Magnesium Total Bilirubin Direct Bilirubin Indirect Bilirubin AST ALT Alkaline Phosphatase Ammonia Total Creatine Kinase 300 H D CK-MB (CK-2) 6.8 H CK and CKMB Interp 2.3 Troponin I 2.420 H D B-Natriuretic Peptide Total Protein Albumin Globulin Albumin/Globulin Ratio Triglycerides Cholesterol LDL Cholesterol VLDL Cholesterol HDL Cholesterol Heart Disease Risk Ratio Lipase Urine Color Urine Appearance Urine pH Ur Specific [place] Urine Protein Urine Glucose (UA) Urine Ketones Urine Blood Urine Nitrate Urine Bilirubin Urine Urobilinogen Urine Leukocytes Urine RBC Urine WBC Urine Bacteria Hyaline Casts Urine Mucus Ur Culture Indicated? Salicylates < 2.8 L Urine Opiates Screen Acetaminophen 6.7 L Ur Barbiturates Screen Ur Phencyclidine Scrn U Amphetamine/Methamph U Benzodiazepines Scrn U Cocaine Metab Screen U Cannabinoids Screen Hepatitis A IgM Ab Hep Bs Antigen Hep B Core IgM Ab Hepatitis C Antibody 10/23/16 10/23/16 10/23/16 18:19 19:30 21:42 WBC RBC Hgb Hct MCV MCH MCHC RDW Plt Count MPV Neut % (Auto) Lymph % (Auto) [place] % (Auto) Eos % (Auto) Baso % (Auto) Neut # (Auto) Lymph # (Auto) [place] # (Auto) Eos # (Auto) Baso # (Auto) Immature Gran % Nucleated RBC % Immature Gran # Nucleated RBCs # INR PT Patient/Control Mix Circ Anticoag PTT ABG pH ABG pCO2 ABG pO2 ABG HCO3 ABG Total CO2 ABG O2 Saturation ABG Base Excess FiO2 Sodium Potassium Chloride Carbon Dioxide Anion Gap BUN Creatinine GFR Calculation BUN/Creatinine Ratio Glucose POC Glucose Hemoglobin A1c Calculated Osmolality Lactic Acid Calcium Magnesium Total Bilirubin Direct Bilirubin Indirect Bilirubin AST ALT Alkaline Phosphatase Ammonia Total Creatine Kinase 293 H CK-MB (CK-2) 5.3 H CK and CKMB Interp 1.8 Troponin I 2.340 H B-Natriuretic Peptide Total Protein Albumin Globulin Albumin/Globulin Ratio Triglycerides Cholesterol LDL Cholesterol VLDL Cholesterol HDL Cholesterol Heart Disease Risk Ratio Lipase Urine Color Urine Appearance Urine pH Ur Specific [place] Urine Protein Urine Glucose (UA) Urine Ketones Urine Blood Urine Nitrate Urine Bilirubin Urine Urobilinogen Urine Leukocytes Urine RBC Urine WBC Urine Bacteria Hyaline Casts Urine Mucus Ur Culture Indicated? Salicylates Urine Opiates Screen Positive H Acetaminophen Ur Barbiturates Screen Negative Ur Phencyclidine Scrn Negative U Amphetamine/Methamph Negative U Benzodiazepines Scrn Positive H U Cocaine Metab Screen Negative U Cannabinoids Screen Negative Hepatitis A IgM Ab Negative Hep Bs Antigen Negative Hep B Core IgM Ab Negative Hepatitis C Antibody Negative 10/23/16 10/23/16 10/24/16 21:42 21:42 00:44 WBC RBC Hgb Hct MCV MCH MCHC RDW Plt Count MPV Neut % (Auto) Lymph % (Auto) [place] % (Auto) Eos % (Auto) Baso % (Auto) Neut # (Auto) Lymph # (Auto) [place] # (Auto) Eos # (Auto) Baso # (Auto) Immature Gran % Nucleated RBC % Immature Gran # Nucleated RBCs # INR PT Patient/Control Mix Circ Anticoag PTT ABG pH ABG pCO2 ABG pO2 ABG HCO3 ABG Total CO2 ABG O2 Saturation ABG Base Excess FiO2 Sodium Potassium Chloride Carbon Dioxide Anion Gap BUN Creatinine GFR Calculation BUN/Creatinine Ratio Glucose POC Glucose Hemoglobin A1c Calculated Osmolality Lactic Acid 1.5 Calcium Magnesium Total Bilirubin Direct Bilirubin Indirect Bilirubin AST ALT Alkaline Phosphatase Ammonia Total Creatine Kinase 300 H CK-MB (CK-2) 5.1 H CK and CKMB Interp 1.7 Troponin I 3.560 H D B-Natriuretic Peptide Total Protein Albumin Globulin Albumin/Globulin Ratio Triglycerides Cholesterol LDL Cholesterol VLDL Cholesterol HDL Cholesterol Heart Disease Risk Ratio Lipase Urine Color Urine Appearance Urine pH Ur Specific [place] Urine Protein Urine Glucose (UA) Urine Ketones Urine Blood Urine Nitrate Urine Bilirubin Urine Urobilinogen Urine Leukocytes Urine RBC Urine WBC Urine Bacteria Hyaline Casts Urine Mucus Ur Culture Indicated? Salicylates Urine Opiates Screen Acetaminophen 6.0 L Ur Barbiturates Screen Ur Phencyclidine Scrn U Amphetamine/Methamph U Benzodiazepines Scrn U Cocaine Metab Screen U Cannabinoids Screen Hepatitis A IgM Ab Hep Bs Antigen Hep B Core IgM Ab Hepatitis C Antibody 10/24/16 10/24/16 10/24/16 01:16 03:30 04:39 WBC 10.5 RBC 3.69 L Hgb 10.9 L Hct 33.6 L MCV 91.1 MCH 30 MCHC 32.4 RDW 15.6 Plt Count 185 MPV 10.8 Neut % (Auto) 79.4 H Lymph % (Auto) 13.5 L [place] % (Auto) 6.6 Eos % (Auto) 0.0 Baso % (Auto) 0.1 Neut # (Auto) 8.3 H Lymph # (Auto) 1.4 [place] # (Auto) 0.7 Eos # (Auto) 0.0 Baso # (Auto) 0.0 Immature Gran % 0.4 Nucleated RBC % 0.0 Immature Gran # 0.04 Nucleated RBCs # 0.00 INR PT Patient/Control Mix Circ Anticoag PTT ABG pH 7.522 H ABG pCO2 29.4 L ABG pO2 56.3 L ABG HCO3 23.6 ABG Total CO2 24.5 ABG O2 Saturation 89.2 L ABG Base Excess 1.1 FiO2 60.00 Sodium Potassium Chloride Carbon Dioxide Anion Gap BUN Creatinine GFR Calculation BUN/Creatinine Ratio Glucose POC Glucose 117 H Hemoglobin A1c Calculated Osmolality Lactic Acid Calcium Magnesium Total Bilirubin Direct Bilirubin Indirect Bilirubin AST ALT Alkaline Phosphatase Ammonia Total Creatine Kinase CK-MB (CK-2) CK and CKMB Interp Troponin I B-Natriuretic Peptide Total Protein Albumin Globulin Albumin/Globulin Ratio Triglycerides Cholesterol LDL Cholesterol VLDL Cholesterol HDL Cholesterol Heart Disease Risk Ratio Lipase Urine Color Urine Appearance Urine pH Ur Specific [place] Urine Protein Urine Glucose (UA) Urine Ketones Urine Blood Urine Nitrate Urine Bilirubin Urine Urobilinogen Urine Leukocytes Urine RBC Urine WBC Urine Bacteria Hyaline Casts Urine Mucus Ur Culture Indicated? Salicylates Urine Opiates Screen Acetaminophen Ur Barbiturates Screen Ur Phencyclidine Scrn U Amphetamine/Methamph U Benzodiazepines Scrn U Cocaine Metab Screen U Cannabinoids Screen Hepatitis A IgM Ab Hep Bs Antigen Hep B Core IgM Ab Hepatitis C Antibody 10/24/16 10/24/16 10/24/16 04:39 04:39 04:39 WBC RBC Hgb Hct MCV MCH MCHC RDW Plt Count MPV Neut % (Auto) Lymph % (Auto) [place] % (Auto) Eos % (Auto) Baso % (Auto) Neut # (Auto) Lymph # (Auto) [place] # (Auto) Eos # (Auto) Baso # (Auto) Immature Gran % Nucleated RBC % Immature Gran # Nucleated RBCs # INR 1.3 PT Patient/Control Mix 14.0 Circ Anticoag PTT ABG pH ABG pCO2 ABG pO2 ABG HCO3 ABG Total CO2 ABG O2 Saturation ABG Base Excess FiO2 Sodium 147 H Potassium 4.0 Chloride 106 Carbon Dioxide 31 Anion Gap 14.0 BUN 19 H Creatinine 1.30 H GFR Calculation 42 BUN/Creatinine Ratio 14.00 Glucose 107 H POC Glucose Hemoglobin A1c 5.6 Calculated Osmolality 293.4 Lactic Acid 1.6 Calcium 7.8 L Magnesium 2.0 Total Bilirubin Direct Bilirubin Indirect Bilirubin AST ALT Alkaline Phosphatase Ammonia Total Creatine Kinase CK-MB (CK-2) CK and CKMB Interp Troponin I B-Natriuretic Peptide Total Protein Albumin Globulin Albumin/Globulin Ratio Triglycerides 215 H Cholesterol 104 LDL Cholesterol 38.0 VLDL Cholesterol 43.0 HDL Cholesterol 49 Heart Disease Risk Ratio 2.12 Lipase Urine Color Urine Appearance Urine pH Ur Specific [place] Urine Protein Urine Glucose (UA) Urine Ketones Urine Blood Urine Nitrate Urine Bilirubin Urine Urobilinogen Urine Leukocytes Urine RBC Urine WBC Urine Bacteria Hyaline Casts Urine Mucus Ur Culture Indicated? Salicylates Urine Opiates Screen Acetaminophen Ur Barbiturates Screen Ur Phencyclidine Scrn U Amphetamine/Methamph U Benzodiazepines Scrn U Cocaine Metab Screen U Cannabinoids Screen Hepatitis A IgM Ab Hep Bs Antigen Hep B Core IgM Ab Hepatitis C Antibody 10/24/16 10/24/16 10/24/16 04:39 04:39 04:39 WBC RBC Hgb Hct MCV MCH MCHC RDW Plt Count MPV Neut % (Auto) Lymph % (Auto) [place] % (Auto) Eos % (Auto) Baso % (Auto) Neut # (Auto) Lymph # (Auto) [place] # (Auto) Eos # (Auto) Baso # (Auto) Immature Gran % Nucleated RBC % Immature Gran # Nucleated RBCs # INR 1.3 PT Patient/Control Mix 14.0 Circ Anticoag PTT 29.1 ABG pH ABG pCO2 ABG pO2 ABG HCO3 ABG Total CO2 ABG O2 Saturation ABG Base Excess FiO2 Sodium Potassium Chloride Carbon Dioxide Anion Gap BUN Creatinine GFR Calculation BUN/Creatinine Ratio Glucose POC Glucose Hemoglobin A1c Calculated Osmolality Lactic Acid Calcium Magnesium Total Bilirubin 0.70 Direct Bilirubin 0.20 Indirect Bilirubin 0.5 AST > 1000 H ALT 628 H Alkaline Phosphatase 136 H Ammonia Total Creatine Kinase 284 H CK-MB (CK-2) 4.1 H CK and CKMB Interp Troponin I 3.130 H B-Natriuretic Peptide Total Protein 4.8 L Albumin 2.4 L Globulin Albumin/Globulin Ratio Triglycerides Cholesterol LDL Cholesterol VLDL Cholesterol HDL Cholesterol Heart Disease Risk Ratio Lipase Urine Color Urine Appearance Urine pH Ur Specific [place] Urine Protein Urine Glucose (UA) Urine Ketones Urine Blood Urine Nitrate Urine Bilirubin Urine Urobilinogen Urine Leukocytes Urine RBC Urine WBC Urine Bacteria Hyaline Casts Urine Mucus Ur Culture Indicated? Salicylates Urine Opiates Screen Acetaminophen Ur Barbiturates Screen Ur Phencyclidine Scrn U Amphetamine/Methamph U Benzodiazepines Scrn U Cocaine Metab Screen U Cannabinoids Screen Hepatitis A IgM Ab Hep Bs Antigen Hep B Core IgM Ab Hepatitis C Antibody - EKG EKG results: interpreted by me, sinus rhythm <Susie Higgins - Last Filed: 10/24/16 21:14> Cardiology - PN: Subj Interval history: I have personally interviewed and evaluated the patient, reviewed the chart and discussed medical decision-making with practitioner Eddi. I have read this note and agree with her documentation here in. The patient cannot tolerate any anticoagulants or antiplatelet agents due to her hemorrhagic conversion. Her hemodynamics are stable. We will try supportive cardiac management. Exam (Progress Note) - Constitutional Vitals: Period Temp Pulse Resp BP Sys/Martinez Pulse Ox Last 24 Hr 98.0 F-99.2 F 61-100 10-73 115-181/65-100 93-98 Result/EKG - Labs CBC & BMP: 10/24/16 04:39 10/24/16 04:39 Labs: Laboratory Results - last 24 hr 10/23/16 10/23/16 10/23/16 19:30 21:42 21:42 WBC RBC Hgb Hct MCV MCH MCHC RDW Plt Count MPV Neut % (Auto) Lymph % (Auto) [place] % (Auto) Eos % (Auto) Baso % (Auto) Neut # (Auto) Lymph # (Auto) [place] # (Auto) Eos # (Auto) Baso # (Auto) Immature Gran % Nucleated RBC % Immature Gran # Nucleated RBCs # INR PT Patient/Control Mix Circ Anticoag PTT ABG pH ABG pCO2 ABG pO2 ABG HCO3 ABG Total CO2 ABG O2 Saturation ABG Base Excess FiO2 Sodium Potassium Chloride Carbon Dioxide Anion Gap BUN Creatinine GFR Calculation BUN/Creatinine Ratio Glucose POC Glucose Hemoglobin A1c Calculated Osmolality Lactic Acid Calcium Magnesium Total Bilirubin Direct Bilirubin Indirect Bilirubin AST ALT Alkaline Phosphatase Total Creatine Kinase 293 H CK-MB (CK-2) 5.3 H CK and CKMB Interp 1.8 Troponin I 2.340 H Total Protein Albumin Triglycerides Cholesterol LDL Cholesterol VLDL Cholesterol HDL Cholesterol Heart Disease Risk Ratio Urine Opiates Screen Positive H Acetaminophen 6.0 L Ur Barbiturates Screen Negative Ur Phencyclidine Scrn Negative U Amphetamine/Methamph Negative U Benzodiazepines Scrn Positive H U Cocaine Metab Screen Negative U Cannabinoids Screen Negative 10/23/16 10/24/16 10/24/16 21:42 00:44 01:16 WBC RBC Hgb Hct MCV MCH MCHC RDW Plt Count MPV Neut % (Auto) Lymph % (Auto) [place] % (Auto) Eos % (Auto) Baso % (Auto) Neut # (Auto) Lymph # (Auto) [place] # (Auto) Eos # (Auto) Baso # (Auto) Immature Gran % Nucleated RBC % Immature Gran # Nucleated RBCs # INR PT Patient/Control Mix Circ Anticoag PTT ABG pH ABG pCO2 ABG pO2 ABG HCO3 ABG Total CO2 ABG O2 Saturation ABG Base Excess FiO2 Sodium Potassium Chloride Carbon Dioxide Anion Gap BUN Creatinine GFR Calculation BUN/Creatinine Ratio Glucose POC Glucose 117 H Hemoglobin A1c Calculated Osmolality Lactic Acid 1.5 Calcium Magnesium Total Bilirubin Direct Bilirubin Indirect Bilirubin AST ALT Alkaline Phosphatase Total Creatine Kinase 300 H CK-MB (CK-2) 5.1 H CK and CKMB Interp 1.7 Troponin I 3.560 H D Total Protein Albumin Triglycerides Cholesterol LDL Cholesterol VLDL Cholesterol HDL Cholesterol Heart Disease Risk Ratio Urine Opiates Screen Acetaminophen Ur Barbiturates Screen Ur Phencyclidine Scrn U Amphetamine/Methamph U Benzodiazepines Scrn U Cocaine Metab Screen U Cannabinoids Screen 10/24/16 10/24/16 10/24/16 03:30 04:39 04:39 WBC 10.5 RBC 3.69 L Hgb 10.9 L Hct 33.6 L MCV 91.1 MCH 30 MCHC 32.4 RDW 15.6 Plt Count 185 MPV 10.8 Neut % (Auto) 79.4 H Lymph % (Auto) 13.5 L [place] % (Auto) 6.6 Eos % (Auto) 0.0 Baso % (Auto) 0.1 Neut # (Auto) 8.3 H Lymph # (Auto) 1.4 [place] # (Auto) 0.7 Eos # (Auto) 0.0 Baso # (Auto) 0.0 Immature Gran % 0.4 Nucleated RBC % 0.0 Immature Gran # 0.04 Nucleated RBCs # 0.00 INR 1.3 PT Patient/Control Mix 14.0 Circ Anticoag PTT ABG pH 7.522 H ABG pCO2 29.4 L ABG pO2 56.3 L ABG HCO3 23.6 ABG Total CO2 24.5 ABG O2 Saturation 89.2 L ABG Base Excess 1.1 FiO2 60.00 Sodium Potassium Chloride Carbon Dioxide Anion Gap BUN Creatinine GFR Calculation BUN/Creatinine Ratio Glucose POC Glucose Hemoglobin A1c Calculated Osmolality Lactic Acid Calcium Magnesium Total Bilirubin Direct Bilirubin Indirect Bilirubin AST ALT Alkaline Phosphatase Total Creatine Kinase CK-MB (CK-2) CK and CKMB Interp Troponin I Total Protein Albumin Triglycerides Cholesterol LDL Cholesterol VLDL Cholesterol HDL Cholesterol Heart Disease Risk Ratio Urine Opiates Screen Acetaminophen Ur Barbiturates Screen Ur Phencyclidine Scrn U Amphetamine/Methamph U Benzodiazepines Scrn U Cocaine Metab Screen U Cannabinoids Screen 10/24/16 10/24/16 10/24/16 04:39 04:39 04:39 WBC RBC Hgb Hct MCV MCH MCHC RDW Plt Count MPV Neut % (Auto) Lymph % (Auto) [place] % (Auto) Eos % (Auto) Baso % (Auto) Neut # (Auto) Lymph # (Auto) [place] # (Auto) Eos # (Auto) Baso # (Auto) Immature Gran % Nucleated RBC % Immature Gran # Nucleated RBCs # INR 1.3 PT Patient/Control Mix 14.0 Circ Anticoag PTT 29.1 ABG pH ABG pCO2 ABG pO2 ABG HCO3 ABG Total CO2 ABG O2 Saturation ABG Base Excess FiO2 Sodium 147 H Potassium 4.0 Chloride 106 Carbon Dioxide 31 Anion Gap 14.0 BUN 19 H Creatinine 1.30 H GFR Calculation 42 BUN/Creatinine Ratio 14.00 Glucose 107 H POC Glucose Hemoglobin A1c 5.6 Calculated Osmolality 293.4 Lactic Acid 1.6 Calcium 7.8 L Magnesium 2.0 Total Bilirubin Direct Bilirubin Indirect Bilirubin AST ALT Alkaline Phosphatase Total Creatine Kinase CK-MB (CK-2) CK and CKMB Interp Troponin I Total Protein Albumin Triglycerides 215 H Cholesterol 104 LDL Cholesterol 38.0 VLDL Cholesterol 43.0 HDL Cholesterol 49 Heart Disease Risk Ratio 2.12 Urine Opiates Screen Acetaminophen Ur Barbiturates Screen Ur Phencyclidine Scrn U Amphetamine/Methamph U Benzodiazepines Scrn U Cocaine Metab Screen U Cannabinoids Screen 10/24/16 10/24/16 10/24/16 04:39 04:39 16:14 WBC RBC Hgb Hct MCV MCH MCHC RDW Plt Count MPV Neut % (Auto) Lymph % (Auto) [place] % (Auto) Eos % (Auto) Baso % (Auto) Neut # (Auto) Lymph # (Auto) [place] # (Auto) Eos # (Auto) Baso # (Auto) Immature Gran % Nucleated RBC % Immature Gran # Nucleated RBCs # INR PT Patient/Control Mix Circ Anticoag PTT ABG pH ABG pCO2 ABG pO2 ABG HCO3 ABG Total CO2 ABG O2 Saturation ABG Base Excess FiO2 Sodium Potassium Chloride Carbon Dioxide Anion Gap BUN Creatinine GFR Calculation BUN/Creatinine Ratio Glucose POC Glucose 142 H Hemoglobin A1c Calculated Osmolality Lactic Acid Calcium Magnesium Total Bilirubin 0.70 Direct Bilirubin 0.20 Indirect Bilirubin 0.5 AST 1818 H ALT 628 H Alkaline Phosphatase 136 H Total Creatine Kinase 284 H CK-MB (CK-2) 4.1 H CK and CKMB Interp Troponin I 3.130 H Total Protein 4.8 L Albumin 2.4 L Triglycerides Cholesterol LDL Cholesterol VLDL Cholesterol HDL Cholesterol Heart Disease Risk Ratio Urine Opiates Screen Acetaminophen Ur Barbiturates Screen Ur Phencyclidine Scrn U Amphetamine/Methamph U Benzodiazepines Scrn U Cocaine Metab Screen U Cannabinoids Screen
--- NOTE | 2016-10-24 08:23 | Pulmonology Progress Note ---
Pulmonary - PN: Subj Interval history: Patient is a 61-year-old white lady that has a component of COPD along with rheumatoid arthritis. She has significant vascular disease and had a right carotid endarterectomy last week. She apparently was doing fairly well until yesterday when she became less responsive. There is a question of a possible drug overdose but it looks like she is extended her CVA. She is on the ventilator now and still has a large A-a O2 gradient. She still is not responding very well. She does have elevated liver tests and positive cardiac enzymes. She has been hemodynamically stable on the ventilator. Exam (Progress Note) - Constitutional Vitals: Period Temp Pulse Resp BP Sys/Martinez Pulse Ox Last 24 Hr 97.8 F-99.0 F 62-100 10-20 125-181/77-113 93-100 Exam: General appearance: normal weight, no acute distress (She appears comfortable on the ventilator but is still poorly responsive.) - Head Head exam: Present: normal inspection, normocephalic - Eye Eye exam: Present: EOMI. Absent: scleral icterus Pupils: Present: XAVIER - ENT ENT exam: Present: normal exam, other (ET tube is in good position) - Neck Neck exam: Absent: lymphadenopathy, thyromegaly - Respiratory Respiratory exam: Present: The patient has fairly good breath sounds bilaterally with minimal rhonchi. - Cardiovascular Cardiovascular exam: Present: regular rate and rhythm. Absent: gallop, systolic murmur - GI/Abdominal GI/Abdominal exam: Present: soft. Absent: distended, organomegaly, tenderness - Extremities Exam Extremities exam: Absent: calf tenderness, edema - Neurological Exam Neurological exam: Present: other (She is still quite lethargic. ) - Psychiatric Psychiatric exam: Absent: anxious - Skin Skin exam: Present: warm, dry Results - Labs CBC & BMP: 10/24/16 04:39 10/24/16 04:39 Labs: Her PO2 is 56 with a PCO2 of 29 pH of 7.52. - Diagnostic Findings Procedure: Chest x-ray: image reviewed by me, report reviewed by me (Chest x- ray shows mild bibasilar infiltrates.) Assessment and Plan (1) Acute respiratory failure Status: Acute Assessment and plan: Patient was found unresponsive and having respiratory difficulties and is now intubated on the ventilator. Still has relative hypoxemia. She has mild infiltrates. She may have a component of COPD. Will adjust her ventilator and continue treatment. Current Visit: Yes (2) chronic pain Status: Chronic Assessment and plan: Patient apparently takes a lot of narcotics and may have overdosed. Current Visit: No (3) Hypertension Status: Chronic Assessment and plan: Patient's blood pressure and heart rate are stable at present. Current Visit: No (4) COPD (chronic obstructive pulmonary disease) Status: Chronic Assessment and plan: Patient has a history of COPD and will continue with bronchodilator therapy. Will add steroids and see how her breathing does. Current Visit: No (5) Elevated troponin Status: Acute Assessment and plan: Patient has elevated cardiac enzymes and will be evaluated by cardiology. Current Visit: Yes (6) Drug overdose Status: Acute Assessment and plan: Patient does take some narcotics but now it looks like she is extended her CVA. 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 She does have a large area of infarct in the right parietal area. Current Visit: No (9) Carotid stenosis Status: Chronic Assessment and plan: The patient had a right carotid endarterectomy last week. Current Visit: Yes
--- NOTE | 2016-10-24 08:54 | CT Report ---
CT head/brain wo con Indication: CVA Comparison: CT brain dated October 23, 2016 Technique: Multiple axial tomographic images of the brain were obtained without the use of intravenous contrast. Findings: Continued evolution of infarct involving the right temporooccipital lobe with small areas of hemorrhagic transformation. No significant midline shift. Continued hypoattenuation within the region of the globus pallidus bilaterally. These are consistent with areas of infarct/sequela of hypoxemia. Significant opacification of the paranasal sinuses again demonstrated with fluid levels in the bilateral maxillary sinuses suggesting acute component of sinusitis. There is also intermixed hyperdensity which can be seen with inspissated secretions or fungal infection IMPRESSION: No adverse interval change compared to October 23, 2016. Continued evolution of infarct involving the right temporooccipital lobe with small areas of hemorrhagic transformation. Continued hypoattenuation within the region of the globus pallidus bilaterally. These are consistent with areas of infarct/sequela of hypoxemia. Significant opacification of the paranasal sinuses again demonstrated with fluid levels in the bilateral maxillary sinuses suggesting acute component of sinusitis. There is also intermixed hyperdensity which can be seen with inspissated secretions or fungal infection The CT exam was performed using one or more of the following dose reduction techniques: Automated exposure control, adjustment of the mA and/or kV according to patient size, or use of iterative reconstruction technique. PROCEDURE INTERPRETED AT [facility] DEPARTMENT OF RADIOLOGY Final Report Signed by: Dr Felice Adams
--- NOTE | 2016-10-24 08:58 | Event Note ---
Long he is awakening somewhat this morning and responding. Continued evaluation is ongoing clearly there has been extension of the CVA with hemorrhagic component which is consistent with reperfusion injury after carotid endarterectomy. Certainly I would not recommend anticoagulation. We will continue supportive care I will continue to follow
[2016-10-24] MEDS ORDERED: CLOPIDOGREL 75 MG TABLET PO SCH (09:00)
[2016-10-24] MEDS ORDERED: ASPIRIN EC 81 MG TABLET PO SCH (09:00)
[2016-10-24] MEDS: methylPREDNISolone SOD SUC 40 MG/1 ML VIAL IV SCH ×2 (09:39→16:46)
[2016-10-24] MEDS: CARVEDILOL 6.25 MG TABLET PO SCH ×2 (09:39→21:26)
[2016-10-24] MEDS: CARVEDILOL 3.125 MG TABLET PO SCH (09:58)
--- NOTE | 2016-10-24 11:07 | Hospitalist Progress Note ---
Hospitalist: Subjective Interval history: Still sedated on the vent. Overnight events reviewed. Exam - Constitutional Vitals: Period Temp Pulse Resp BP Sys/Martinez Pulse Ox Last 24 Hr 97.8 F-99.2 F 62-100 10-22 125-181/73-113 93-100 Exam: Sedated and intubated, ashen appearance RRR no M CTAB nonlabored Soft, hypoactive bowel sounds no HSM or masses appreciated cool distal extremities, no cyanosis or edema Full neuro could not be done due to sedation Results - Labs CBC & BMP: 10/24/16 04:39 10/24/16 04:39 - Impressions (1) Acute respiratory failure (hypoxic) Status: Acute Assessment and plan: - Mechanical ventilation per pulm wean as tolerated. Cont monitoring blood gases and CXR. Labs in am. Current Visit: Yes (2) Acute encephalopathy possibly related to pain medication unintentional overdose and expansion of stroke with hemorrhagic transformation - Night MD covering has stopped N-acetylcystine despite recommendations from medical strawberry grower ( ) after discussion with GI and LFTs continue to increase. Clinical evidence supports that when administered late following Tylenol ingestion with evidence of liver toxicity, it decreases mortality and improves hepatic and cerebral function. I discussed with GI and still wants to hold. Will defer to GI. (3) Elevated troponin Status: Acute Assessment and plan: Serial troponins trending down. Serial EKGs. Monitor patient. Cardiology following. ECHO pending. Unable to anticoagulate due to possible hemorrhagic transformation. Current Visit: Yes (4) Hypertension (essential) Status: Acute Assessment and plan: Pt. blood pressure currently elevated. PRN IV htn medications. Current Visit: No (5) chronic pain due to RA, peripheral neuropathy Status: Chronic Current Visit: No (6) Recent right occipital stroke and CEA - CVTS following. Neuro checks (7) Acute renal failure- improving - Cont IVF. Avoid nephrotoxic agents. (8) Elevated LFTs - viral hepatitis panel negative. Abdominal U/S reviewed. -Cards, Pulm, GI are following. SCDs- DVT prophylaxis 35 minutes spent with this patient.
--- NOTE | 2016-10-24 14:00 | Gastrointestinal Progress Note ---
Assessment and Plan (1) Elevated transaminase level Status: Acute Assessment and plan: The acetaminophen level at 1600 has come back at 6.7mcg/ml, this is below the treatment threshold (63.07 mcg/ml) according to the Jennifer mendieta for tylenol overdose. In my mind this is much more likely to be a narcotic overdose from a combination of the patient's fentanyl patch probably several of her [place] 10-325 mg in addition to some ischemia possibly secondary to hypertension versus myocardial infarction resulting in ischemic hepatitis. I suspect will be able to tell fairly shortly whether or not this is the case as her numbers bounce back towards normal in another 3-5 days. They may certainly worsen between now and then, the treatment is mostly supportive. I believe we can likely discontinue the Tylenol protocol, as it seems that she would would have had to take a significant portion of the entire bottle to get a toxic effect from the Tylenol portion of the [place]. This patient may need to rethink living at home or at least find some way to have her medications dispensed to her going forward. 10/24/16--Over the last several hours the patient's AST is increased from 1516 to 1818 with an increase in ALT from 534-->628, but little change in the alkaline phosphatase or bilirubin. Troponin levels have peaked at this point are starting to come down as has the creatinine, previously 1.6 now down to 1.3. I suspect that this patient's liver function tests will peak in the next 24-48 hours and will start to precipitously drop after that period of time provided we support her pressure/cardiac function. I note that Dr. Bishop does not feel completely comfortable with discontinuation the N-acetylcysteine- - this was my recommendation to the on-call hospitalist covering at night. In my opinion this is a fairly straightforward case of ischemic hepatitis, although drug induced hepatitis is still in the differential. Current Visit: Yes (2) Guaiac positive stools Status: Acute Assessment and plan: This patient has some mild anemia with hematocrit of 36%. She has guaiac positive stools which are not surprising considering the ischemia she is likely going through. We will continue to watch her for shaunna GI bleed. Upper and lower endoscopy may depend on the results of the above. We will watch her for hematocrit drop over time. I do not anticipate upper and lower endoscopy unless bleeding is suspected this admission. 10/24/16--the hematocrit slightly dropped to 33%, will continue to observe for the present time. I do not anticipate requiring endoscopy this admission. Current Visit: Yes Gastroenterology - PN: Subj Interval history: When the propofol is cut back the patient is writhing in the bed, sits up and attempts to get out of her restraints. It is my understanding that because of thick sputum and the appearance of the chest x-ray she is going to remain intubated for at least another day as per Dr. Forbes. Dr. Bishop and I discussed the case today and the reasons for discontinuation of the N- acetylcysteine as this does not appear to be a Tylenol overdose in my opinion. Liver function tests have increased slightly and I expect these will peak in the next 24-48 hours. The picture is most consistent with ischemic hepatitis and ischemic endorgan damage to heart, liver and kidneys. Exam (Progress Note) - Constitutional Vitals: Period Temp Pulse Resp BP Sys/Martinez Pulse Ox Last 24 Hr 97.8 F-99.2 F 62-100 10-22 120-181/70-113 93-100 General appearance: mild distress - Eye Eye exam: Absent: periorbital swelling - ENT ENT exam: Present: other (intubated) - Respiratory Respiratory exam: Present: decreased breath sounds (in bases), rhonchi - Cardiovascular Cardiovascular exam: Present: regular rate and rhythm - GI/Abdominal GI/Abdominal exam: Present: hypoactive bowel sounds, tenderness (LLQ on deep palpation), soft. Absent: rebound - Extremities Exam Extremities exam: Present: edema - Neurological Exam Neurological exam: Present: altered (somulant) - Skin Skin exam: Present: warm Results - Labs CBC & BMP: 10/24/16 04:39 10/24/16 04:39
[2016-10-24] MEDS: LACTATED RINGERS 1,000 ML IV SCH (14:46)
--- NOTE | 2016-10-24 16:46 | Neurology Consult Note ---
History of Present Illness History of present illness: Patient is unable to provide me any history. History basically obtained from the chart. Ms. Eubanks is a 61 year old white female with a history of htn, depression and anxiety, COPD, pneumonia, stroke, RA, congestive heart, and obstructive sleep who is transferred from [facility] for respiratory distress secondary to possible drug overdose. Pt. was just seen in the ED here on 10/21 for a headache. Pt. was treated and released. Pt. is s/p recent right carotid endarterectomy performed by Dr. Oliva. Pt. also just recently had a stroke in the right parietotemporal region prior to her carotid endarterectomy. Pt. is currently intubated. Yesterday morning, the patient was last seen alert around 7. When the pt's brother went to arouse her she was sleeping, later when he tried again she was unresponsive. EMS was called. Pt. was reportedly gurgling and still very lethargic. Pt. had been found next to pills which included pain medications which patient takes for spinal stenosis, RA, and chronic pain. The patient was given Narcan, transported to [facility] and subsequently transferred here. Pt. was admitted to the ICU for further eval and treatment. CT of the head revealed right parietal temporal infarct which is subacute to chronic. There is questionable hemorrhagic transformation but nothing significant. Home Medications Medication Instructions Recorded Confirmed Type Aspirin [Ecotrin] 81 mg PO DAILY 10/03/16 10/15/16 History Buspirone HCl 7.5 mg PO BID 10/03/16 10/23/16 History Clopidogrel [Plavix] 1 tablet PO DAILY 10/03/16 10/23/16 History Diazepam Tab [Valium Tab] 2 mg PO BID 10/03/16 10/15/16 History Losartan [Cozaar] 50 mg PO DAILY 10/03/16 10/23/16 History Rosuvastatin [Crestor] 1 tablet PO DAILY 10/03/16 10/15/16 History Temazepam [Restoril] 15 mg PO BEDTIME PRN 10/03/16 10/15/16 History Albuterol Inhaler [Proventil 2 puff INH Q4HR 10/09/16 10/15/16 History Inhaler] fentaNYL [Fentanyl 50 mcg/hr Patch] 1 patch TRANSDERM Q3DAY 10/09/16 10/15/16 History HYDROcodone/ACETAMIN 10-325 [[place] 1 tablet PO Q4-6H PRN #20 10/17/16 10/23/16 Rx 10-325] Allergies Allergy/AdvReac Type Severity Reaction Status Date / Time morphine Allergy Severe SHORTNESS Verified 10/15/16 07:07 OF BREATH ROS unobtainable: due to endotracheal tube, due to mental status Medical,Surgical,& Family Hx - Medical History Cardio: History of: Hypertension Psychological: History of: Anxiety Disorders, Depression Neurology: History of: Cerebrovascular Accident, Peripheral Neuropathy HEENT: History of: Eye Problem (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 Way), Osteoporosis Reproductive: History of: Abnormal Pap Smear (pre-cancerous cells with removal.) Other: No history of: Anesthesia Reactions - Surgical History HEENT Surgeries: Surgical HX of: Eye Surgery (Cataract removal.) Abdominal Surgeries: Surgical HX of: Abdominal Surgery, Appendectomy, Gastric Bypass Surgery Reproductive Surgeries: Surgical HX of;: Hysterectomy Orthopedic Surgeries: Surgical HX of;: Orthopedic Surgery (Left Rotator Cuff Repair.) - Family History Family History: Reports;: Family Cancer, Family Diabetes, Family Heart Disease, Family Hypertension, Family Psychiatric Problems, Family Stroke - Social History Smoking Status: Former smoker Frequency of Alcohol Use: Unknown Type of Drug Use: Unknown Exam - Constitutional Vitals: Period Temp Pulse Resp BP Sys/Martinez Pulse Ox Last 24 Hr 98.0 F-99.2 F 62-100 10-73 120-181/70-100 93-99 Exam: GENERAL: Patient is in no acute distress. NECK: Neck is supple. There is no JVD. No carotid bruits present. No thyroid masses. CVS: First and second heart sounds are normal. There is no S3 present. Regular rate and rhythm. RESPIRATORY: Lungs are clear to auscultation without any rales or rhonchi. ABDOMEN: Soft and non-tender. Bowel sounds are present. There is no hepatosplenomegaly. EXT: There is no palpable edema. Peripheral pulses are present. Skin: No rashes Central Nervous system: General: Sedated/unresponsive Speech: None Comprehension: None Facial expressions: Normal Cranial Nerves: Pupils are equally reactive to light. Doll's head eye movements are positive. No facial asymmetry seen Motor: Bulk and Tone is normal. Strength cannot be assessed at this time Sensory: Cannot be assessed Reflexes: 1+ and symmetrical Cerebellar function: Normal finger to nose and heel to lovelace testing. Toes: Equivocal Gait: Cannot be assessed Results - Labs CBC & BMP: 10/24/16 04:39 10/24/16 04:39 Assessment and Plan (1) CVA (cerebral vascular accident) Status: Acute Assessment and plan: Hold off to any antiplatelet agents and anticoagulants. Repeat CAT scan on 10/26/2016 Continue supportive treatment I believe there is some element of drug overdose. Thank you for the consult Current Visit: Yes
[2016-10-25] MEDS: ALBUTEROL/IPRATROPIUM 3 ML NEB RESP TX SCH ×4 (00:08→19:31)
[2016-10-25] MEDS: methylPREDNISolone SOD SUC 40 MG/1 ML VIAL IV SCH ×3 (00:12→18:27)
[2016-10-25] MEDS: PROPOFOL 1,000 MG/100 ML BOTTLE IV SCH ×4 (03:20→19:33)
[2016-10-25 06:46] LABS: Basophils % 0.1 % (0.0-0.8); Hematocrit 32.1 VOL% (35.7-47.0); Hemoglobin 10.8 GM/DL (12.0-16.0); Immature Granulocytes % 0.5 %; Immature Granulocytes Absolute 0.04 #; Lymphocytes # 0.7 10*3/uL (1.4-4.0); Mean Corpuscular HGB Conc 33.6 GM/DL (32-36); Mean Corpuscular Hemoglobin 31 PG (27-34); Mean Corpuscular Volume 90.9 FL (87-102); Mean Platelet Volume 11.2 FL (9.6-12.0); Monocytes # 0.2 10*3/uL (0.11-0.8); Monocytes % 2.4 % (1.7-12.7); Neutrophils # 7.7 10*3/uL (1.4-7.4); Platelet Count 159 T/CUMM (130-400); Red Blood Count 3.53 MC/CUMM (3.8-5.5); Red Cell Distribution Width 15.4 % (9.3-17.3); White Blood Count 8.6 T/CUMM (4-12)
[2016-10-25 07:12] LABS: ABG HCO3 30.2 MMOL/L (20-26); ABG PCO2 34.7 MM HG (35-48); ABG PH 7.557 (7.35-7.45); ABG PO2 97.6 MM HG (80-95); ABG TCO2 31.2 MMOL/L (23-27)
[2016-10-25 07:13] LABS: ABG Base Excess 7.7 MMOL/L (-2.5-2.5); ABG Oxygen Saturation 97.4 % (95-100)
[2016-10-25 07:35] LABS: Calcium 7.7 MG/DL (8.5-10.1); Osmolality,Calculated 290.8 MOS/KG (273-304); Potassium 3.7 MMOL/L (3.5-5.1)
[2016-10-25 08:48] LABS: Albumin 2.3 G/DL (3.4-5.0); Bilirubin,Direct 0.3 MG/DL (0.0-0.20); Bilirubin,Indirect 0.2 MG/DL (0.0-1.0); Bilirubin,Total 0.5 MG/DL (0.2-1.0); Total Protein 4.8 G/DL (6.4-8.3)
[2016-10-25] MEDS: CARVEDILOL 6.25 MG TABLET PO SCH ×2 (09:16→22:02)
[2016-10-25] MEDS: cefTRIAXone 1,000 MG in SODIUM CHLORIDE 0.9% 100 ML IV SCH (09:52)
[2016-10-25] MEDS ORDERED: GLUCAGON 1 MG VIAL IM PRN (10:06)
[2016-10-25] MEDS ORDERED: DEXTROSE 50% 25 GM/50 ML VIAL IV PRN (10:06)
[2016-10-25] MEDS: LACTATED RINGERS 1,000 ML IV SCH (10:45)
[2016-10-25] MEDS: INSULIN REGULAR 100 UNIT/ML SUBCUT SCH ×2 (12:09→18:28)
--- NOTE | 2016-10-25 12:16 | Pulmonology Progress Note ---
Pulmonary - PN: Subj Interval history: Patient is a 61-year-old white lady that has a component of COPD along with rheumatoid arthritis. She has significant vascular disease and had a right carotid endarterectomy last week. She apparently was doing fairly well until yesterday when she became less responsive. There is a question of a possible drug overdose but it looks like she is extended her CVA. She is on the ventilator now and still has a large A-a O2 gradient. Yesterday she apparently would get agitated when off sedation. She does not follow commands yet but she does move around. She is still requiring 70% O2. Her PO2 is a little better today. She still has bibasilar infiltrates and will cover with antibiotics. Will plan a therapeutic bronchoscopy and clear airways and try to lower her FiO2 Exam (Progress Note) - Constitutional Vitals: Period Temp Pulse Resp BP Sys/Martinez Pulse Ox Last 24 Hr 97.1 F-99.2 F 56-98 10-73 115-158/65-90 94-99 Exam: General appearance: normal weight, no acute distress (She appears comfortable on the ventilator but is still poorly responsive. She is in no distress at present.) - Head Head exam: Present: normal inspection, normocephalic - Eye Eye exam: Present: EOMI. Absent: scleral icterus Pupils: Present: XAVIER - ENT ENT exam: Present: normal exam, other (ET tube is in good position) - Neck Neck exam: Absent: lymphadenopathy, thyromegaly - Respiratory Respiratory exam: Present: The patient has fairly good breath sounds bilaterally she is moving air fairly well with some mild rhonchi. - Cardiovascular Cardiovascular exam: Present: regular rate and rhythm. Absent: gallop, systolic murmur - GI/Abdominal GI/Abdominal exam: Present: soft. Absent: distended, organomegaly, tenderness - Extremities Exam Extremities exam: Absent: calf tenderness, edema - Neurological Exam Neurological exam: Present: other (She is still quite lethargic. She does move around more.) - Psychiatric Psychiatric exam: Absent: anxious - Skin Skin exam: Present: warm, dry Results - Labs CBC & BMP: 10/25/16 04:00 10/25/16 07:00 Labs: The PO2 is 97 with a PCO2 of 34 and a pH of 7.55 - Diagnostic Findings Procedure: Chest x-ray: image reviewed by me, report reviewed by me, pending ( Chest x-ray shows bibasilar infiltrates.) Assessment and Plan (1) Acute respiratory failure Status: Acute Assessment and plan: Patient was found unresponsive and having respiratory difficulties and is now intubated on the ventilator. Still has relative hypoxemia. She has mild infiltrates. She may have a component of COPD. Will plan a therapeutic bronchoscopy. Current Visit: Yes (2) chronic pain Status: Chronic Assessment and plan: Patient apparently takes a lot of narcotics and may have overdosed. Current Visit: No (3) Hypertension Status: Chronic Assessment and plan: Patient's blood pressure and heart rate are stable at present. She does appear hemodynamically stable. Current Visit: No (4) COPD (chronic obstructive pulmonary disease) Status: Chronic Assessment and plan: Patient has a history of COPD and will continue with bronchodilator therapy. Will add steroids and see how her breathing does. Current Visit: No (5) Elevated troponin Status: Acute Assessment and plan: Patient has elevated cardiac enzymes and will be evaluated by cardiology. Current Visit: Yes (6) Drug overdose Status: Acute Assessment and plan: Patient does take some narcotics but now it looks like she is extended her CVA. She is starting to respond some. 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 She does have a large area of infarct in the right parietal area. Current Visit: No (9) Carotid stenosis Status: Chronic Assessment and plan: The patient had a right carotid endarterectomy last week. Current Visit: Yes
--- NOTE | 2016-10-25 12:17 | Gastrointestinal Progress Note ---
Assessment and Plan (1) Elevated transaminase level Status: Acute Assessment and plan: The acetaminophen level at 1600 has come back at 6.7mcg/ml, this is below the treatment threshold (63.07 mcg/ml) according to the Jennifer mendieta for tylenol overdose. In my mind this is much more likely to be a narcotic overdose from a combination of the patient's fentanyl patch probably several of her Westpoint 10-325 mg in addition to some ischemia possibly secondary to hypertension versus myocardial infarction resulting in ischemic hepatitis. I suspect will be able to tell fairly shortly whether or not this is the case as her numbers bounce back towards normal in another 3-5 days. They may certainly worsen between now and then, the treatment is mostly supportive. I believe we can likely discontinue the Tylenol protocol, as it seems that she would would have had to take a significant portion of the entire bottle to get a toxic effect from the Tylenol portion of the Westpoint. This patient may need to rethink living at home or at least find some way to have her medications dispensed to her going forward. 10/24/16--Over the last several hours the patient's AST is increased from 1516 to 1818 with an increase in ALT from 534-->628, but little change in the alkaline phosphatase or bilirubin. Troponin levels have peaked at this point are starting to come down as has the creatinine, previously 1.6 now down to 1.3. I suspect that this patient's liver function tests will peak in the next 24-48 hours and will start to precipitously drop after that period of time provided we support her pressure/cardiac function. I note that Dr. Bishop does not feel completely comfortable with discontinuation the N-acetylcysteine- - this was my recommendation to the on-call hospitalist covering at night. In my opinion this is a fairly straightforward case of ischemic hepatitis, although drug induced hepatitis is still in the differential. 10/25/16--Liver function tests have now started to peak and are coming down with AST going from 1818 down to 1124. The ALT is likely peaking today going from 628-715. Alkaline phosphatase is already dropped from 136-117 and bilirubin has gone from 0.7-0.5. I expect the ALT will show improvement tomorrow as well. Again, these findings are ischemia-driven, likely from hypotension/ anoxia with accidental opioid overdose. Current Visit: Yes (2) Guaiac positive stools Status: Acute Assessment and plan: This patient has some mild anemia with hematocrit of 36%. She has guaiac positive stools which are not surprising considering the ischemia she is likely going through. We will continue to watch her for shaunna GI bleed. Upper and lower endoscopy may depend on the results of the above. We will watch her for hematocrit drop over time. I do not anticipate upper and lower endoscopy unless bleeding is suspected this admission. 10/24/16--the hematocrit slightly dropped to 33%, will continue to observe for the present time. I do not anticipate requiring endoscopy this admission. 10/25/16--The HCT is down slightly to 32.1%. No endoscopy anticipated. Current Visit: Yes Gastroenterology - PN: Subj Interval history: This patient is extremely agitated when she is allowed to come up off the propofol. In discussion with her family 1 of her greatest fears is "being on the ventilator" and so this is not surprising. It is difficult to see whether she can be weaned when she becomes so agitated as she wakes up off of the propofol drip. Dr. Forbes is following and feels like she has a high O2 gradient. White blood cell count is better and the creatinine is back to normal again post hydration. Again, I believe the patient had an ischemic event that affected her brain, heart, liver, and kidneys given the total evidence seen. I believe the cause for this is likely opiate overdose ( accidental overdose with Westpoint-10 in the face of an increased fentanyl patch to 50 micrograms per 72 hours), not Tylenol toxicity. Exam (Progress Note) - Constitutional Vitals: Period Temp Pulse Resp BP Sys/Martinez Pulse Ox Last 24 Hr 97.1 F-98.9 F 56-78 10-73 115-154/65-88 94-99 General appearance: no acute distress - Eye Eye exam: Present: EOMI Pupils: Present: XAVIER - ENT ENT exam: Present: normal oropharynx - Respiratory Respiratory exam: Present: decreased breath sounds (In the bases), other ( Sedated and intubated) - Cardiovascular Cardiovascular exam: Present: tachycardia (Patient having a bronch at the present time) - GI/Abdominal GI/Abdominal exam: Present: normal bowel sounds, soft, other (Patient is sedated.). Absent: distended, tenderness, rebound - Neurological Exam Neurological exam: Present: altered (Sedated and intubated) - Psychiatric Psychiatric exam: Present: other (Unable to assess) - Skin Skin exam: Present: warm Results - Labs CBC & BMP: 10/25/16 04:00 10/25/16 07:00
--- NOTE | 2016-10-25 12:17 | Cardiology Progress Note ---
<Aixa Montague E - Last Filed: 10/25/16 17:31> Assessment and Plan - Time spent with patient Time spent with patient: Less than 30 minutes (1) Elevated troponin Status: Acute Assessment and plan: SEE PLAN OF CARE LISTED BELOW. Current Visit: Yes (2) Respiratory distress Status: Acute Assessment and plan: SEE PLAN OF CARE LISTED BELOW. Current Visit: Yes (3) Drug overdose Status: Acute Assessment and plan: SEE PLAN OF CARE LISTED BELOW. Current Visit: Yes (4) Hypertension Status: Chronic Assessment and plan: SEE PLAN OF CARE LISTED BELOW. Current Visit: No (5) Chronic pain syndrome Status: Chronic Assessment and plan: SEE PLAN OF CARE LISTED BELOW. Current Visit: No (6) Carotid stenosis Status: Chronic Assessment and plan: SEE PLAN OF CARE LISTED BELOW. 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 Current Visit: No (8) History of CHF (congestive heart failure) Status: Chronic Assessment and plan: SEE PLAN OF CARE LISTED BELOW. Current Visit: Yes (9) MIKE (obstructive sleep apnea) Status: Chronic Assessment and plan: SEE PLAN OF CARE LISTED BELOW. Current Visit: Yes (10) COPD (chronic obstructive pulmonary disease) Status: Chronic Assessment and plan: SEE PLAN OF CARE LISTED BELOW. Current Visit: No (11) Dyslipidemia Status: Chronic Assessment and plan: SEE PLAN OF CARE LISTED BELOW. Current Visit: Yes (12) Elevated transaminase level Status: Acute Assessment and plan: SEE PLAN OF CARE LISTED BELOW. 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 Higgins Ms. Eubanks is a 61 year old female who was directly admitted to our facility from [facility]. She has a history of hypertension, depression and anxiety, COPD, pneumonia, stroke, rheumatoid arthritis, congestive heart failure, and obstructive sleep apnea. She is s/p right cardotid endarterectomy on 10/15/[address] Oliva. She is intubated and on mechanical ventilation after being unresponsive at home prior to admission. She has had a suspected drug overdose. Her family reports she has difficulty with remembering to take medications and remembering whether or not she has already taken medications. We were consulted to see her due to an elevated troponin. Upon arrival to [facility], her troponin was 0.497. Her CK-MB was 4.1. EKG showed NSR with mild ST depression anterolaterally. We do not have prior records of her having seen a business objects consultant at [facility] nor at [facility]. The night of admission she was taken for head CT which revealed possible hemorrhagic conversion of her recent stroke. We will not be able to further anticoagulate her. We will defer antiplatelet management to the hospitalist service, neurology, and Dr. Oliva. She has been very agitated on sedation but still has no purposeful movements. She is to have a repeat head CT in the morning. Tube feedings are being started per drivers license examiner recommendations. ASSESSMENT/PLAN: 1. ELEVATED TROPONIN - Unsure whether patient has had recent cardiac symptoms. EKG shows mild ST-T changes from previous EKG done 10/09/16. Troponin peak was 3.56, CPK 300, CK-MB 7.3. We do not have records of her previously undergoing cardiac evaluation at our facility. Given the recent hemorrhagic conversion of her stroke, she is not a candidate for anticoagulation. At this time, we will continue medical management and follow her progress. 2. RESPIRATORY FAILURE - Currently intubated and on mechanical ventilation. Pulmonology is following. She underwent bronchoscopy today. 3. SUSPECTED DRUG OVERDOSE - Urine toxicology was positive for opiates and benzodiazepines. 4. HYPERTENSION - Will continue home medication. Will monitor and adjust medications accordingly during hospitalization. Creatinine is down to 1.3 today. We have started her on a beta-kris will continue to adjust this dosage for optimal blood pressure control. Will further discuss with Dr. Higgins prior to reintroduction of her ARB. We will try to avoid any other nephrotoxic therapies. 5. CHRONIC PAIN - Related to spinal stenosis, rheumatoid arthritis. Reportedly takes [place] and Fentanyl patches at home. 6. CAROTID STENOSIS - S/P right carotid endarterectomy 10/15/[address] Oliva. She was recently evaluated in the emergency room on 10/21/2016 for complaints of severe headache. Head CT was done at that time showed no acute abnormality. She followed up with Dr. Oliva on Saturday and did not mention these events to him. 7. HISTORY OF CVA - History of recent CVA with memory impairment and impaired peripheral visual acuity. Repeat head CT done 10/23/2016 revealed increased attenuation worrisome for hemorrhagic transformation of her recent stroke. According to the report, the area of actual infarction has increased since the comparison study now to involve the medial and posterior cortex of the right occipital lobe as well as the right temporal lobe. Neurology has been consulted. 8. HISTORY OF CHF - BNP unremarkable at 237. Echocardiogram is pending. 9. OBSTRUCTIVE SLEEP APNEA - Currently on mechanical ventilation. Continue CPAP once off vent. 10. COPD - Currently on mechanical ventilation. Pulmonology is following. 11. DYSLIPIDEMIA - Lipid panel revealed triglycerides 215, cholesterol 104, LDL 38, HDL 49. Will hold off on statin therapy pending the improvement of her elevated LFTs. 12. ELEVATED TRANSAMINASE LEVEL - She has elevated LFT's. GI is following. This is slowly improving. Dr. Higgins to follow with further plan and addendum. Exam (Progress Note) - Constitutional Vitals: Period Temp Pulse Resp BP Sys/Martinez Pulse Ox Last 24 Hr 97.1 F-98.9 F 56-78 10-73 115-154/65-88 94-99 Exam: General appearance: Orally intubated and sedated on ventilator. Normal weight, no acute distress. - Head Head exam: Present: normal inspection, normocephalic, atraumatic. Absent: hematoma, laceration - Eye Eye exam: Present: EOMI. Absent: conjunctival injection, nystagmus, periorbital swelling, scleral icterus, laceration to eyelids Pupils: Present: PERRL. Absent: constricted, dilated, fixed, irregular, unequal - ENT ENT exam: Present: Orally intubated, normal external ear exam. NGT in place. - Neck Neck exam: Present: normal inspection. Absent: lymphadenopathy, meningismus, tenderness, thyromegaly - Respiratory Respiratory exam: Present: Mechanically ventilated breath sounds. Absent: accessory muscle use - Cardiovascular Cardiovascular exam: Present: regular rate and rhythm. Absent: carotid bruit, gallop, JVD, rubs, murmur - GI/Abdominal GI/Abdominal exam: Present: normal bowel sounds, soft. Absent: distended, firm , guarding, hernia, mass, tenderness, rebound. - Extremities Exam Extremities exam: Present: normal inspection, normal capillary refill. Upper extremity pulses 2+. Lower extremity pulses 2+. Absent: calf tenderness, edema - Back Exam Back exam: Present: Unable to examine due to habitus. Sedated on mechanical ventilator. - Neurological Exam Neurological exam: Present: Limited due to habitus (on ventilator). Very agitated on diprivan. No purposeful movements or following commands today. No resting or essential tremor. - Psychiatric Psychiatric exam: Present: Unable to adequately assess due to patient being sedated and on mechanical ventilation. - Skin Skin exam: Present: normal color, warm, dry, intact. Absent: cyanosis, diaphoretic, rash, urticaria Result/EKG - Labs CBC & BMP: 10/25/16 04:00 10/25/16 07:00 Lab Results: I have reviewed the past 24 hour labs Labs: Laboratory Results - last 24 hr 10/24/16 10/24/16 10/25/16 04:39 16:14 00:15 WBC RBC Hgb Hct MCV MCH MCHC RDW Plt Count MPV Neut % (Auto) Lymph % (Auto) [place] % (Auto) Eos % (Auto) Baso % (Auto) Neut # (Auto) Lymph # (Auto) [place] # (Auto) Eos # (Auto) Baso # (Auto) Immature Gran % Nucleated RBC % Immature Gran # Nucleated RBCs # ABG pH ABG pCO2 ABG pO2 ABG HCO3 ABG Total CO2 ABG O2 Saturation ABG Base Excess Sodium Potassium Chloride Carbon Dioxide Anion Gap BUN Creatinine GFR Calculation BUN/Creatinine Ratio Glucose POC Glucose 142 H 156 H Calculated Osmolality Calcium Total Bilirubin 0.70 Direct Bilirubin 0.20 Indirect Bilirubin 0.5 AST 1818 H ALT 628 H Alkaline Phosphatase 136 H Total Protein 4.8 L Albumin 2.4 L 10/25/16 10/25/16 10/25/16 04:00 04:00 07:00 WBC 8.6 RBC 3.53 L Hgb 10.8 L Hct 32.1 L MCV 90.9 MCH 31 MCHC 33.6 RDW 15.4 Plt Count 159 MPV 11.2 Neut % (Auto) 89.0 H Lymph % (Auto) 8.0 L [place] % (Auto) 2.4 Eos % (Auto) 0.0 Baso % (Auto) 0.1 Neut # (Auto) 7.7 H Lymph # (Auto) 0.7 L [place] # (Auto) 0.2 Eos # (Auto) 0.0 Baso # (Auto) 0.0 Immature Gran % 0.5 Nucleated RBC % 0.0 Immature Gran # 0.04 Nucleated RBCs # 0.00 ABG pH 7.557 H ABG pCO2 34.7 L ABG pO2 97.6 H ABG HCO3 30.2 H ABG Total CO2 31.2 H ABG O2 Saturation 97.4 ABG Base Excess 7.7 H Sodium 144 Potassium 3.7 Chloride 105 Carbon Dioxide 31 Anion Gap 11.7 BUN 21 H Creatinine 0.70 GFR Calculation 90 BUN/Creatinine Ratio 30.00 H Glucose 139 H POC Glucose Calculated Osmolality 290.8 Calcium 7.7 L Total Bilirubin Direct Bilirubin Indirect Bilirubin AST ALT Alkaline Phosphatase Total Protein Albumin 10/25/16 07:44 WBC RBC Hgb Hct MCV MCH MCHC RDW Plt Count MPV Neut % (Auto) Lymph % (Auto) [place] % (Auto) Eos % (Auto) Baso % (Auto) Neut # (Auto) Lymph # (Auto) [place] # (Auto) Eos # (Auto) Baso # (Auto) Immature Gran % Nucleated RBC % Immature Gran # Nucleated RBCs # ABG pH ABG pCO2 ABG pO2 ABG HCO3 ABG Total CO2 ABG O2 Saturation ABG Base Excess Sodium Potassium Chloride Carbon Dioxide Anion Gap BUN Creatinine GFR Calculation BUN/Creatinine Ratio Glucose POC Glucose 142 H Calculated Osmolality Calcium Total Bilirubin Direct Bilirubin Indirect Bilirubin AST ALT Alkaline Phosphatase Total Protein Albumin - EKG EKG results: interpreted by me, sinus rhythm <Susie Higgins - Last Filed: 10/25/16 19:14> Cardiology - PN: Subj Interval history: I have personally interviewed and evaluated the patient, reviewed the chart and discussed medical decision-making with practitioner Eddi. I have read this note and agree with her documentation here in. Continue with supportive care. Exam (Progress Note) - Constitutional Vitals: Period Temp Pulse Resp BP Sys/Martinez Pulse Ox Last 24 Hr 97.1 F-98.9 F 53-85 10-18 123-196/67-93 94-100 Result/EKG - Labs CBC & BMP: 10/25/16 04:00 10/25/16 07:00 Labs: Laboratory Results - last 24 hr 10/25/16 10/25/16 10/25/16 00:15 04:00 04:00 WBC 8.6 RBC 3.53 L Hgb 10.8 L Hct 32.1 L MCV 90.9 MCH 31 MCHC 33.6 RDW 15.4 Plt Count 159 MPV 11.2 Neut % (Auto) 89.0 H Lymph % (Auto) 8.0 L [place] % (Auto) 2.4 Eos % (Auto) 0.0 Baso % (Auto) 0.1 Neut # (Auto) 7.7 H Lymph # (Auto) 0.7 L [place] # (Auto) 0.2 Eos # (Auto) 0.0 Baso # (Auto) 0.0 Immature Gran % 0.5 Nucleated RBC % 0.0 Immature Gran # 0.04 Nucleated RBCs # 0.00 ABG pH 7.557 H ABG pCO2 34.7 L ABG pO2 97.6 H ABG HCO3 30.2 H ABG Total CO2 31.2 H ABG O2 Saturation 97.4 ABG Base Excess 7.7 H Sodium Potassium Chloride Carbon Dioxide Anion Gap BUN Creatinine GFR Calculation BUN/Creatinine Ratio Glucose POC Glucose 156 H Calculated Osmolality Calcium Total Bilirubin Direct Bilirubin Indirect Bilirubin AST ALT Alkaline Phosphatase Total Protein Albumin 10/25/16 10/25/16 10/25/16 07:00 07:00 07:44 WBC RBC Hgb Hct MCV MCH MCHC RDW Plt Count MPV Neut % (Auto) Lymph % (Auto) [place] % (Auto) Eos % (Auto) Baso % (Auto) Neut # (Auto) Lymph # (Auto) [place] # (Auto) Eos # (Auto) Baso # (Auto) Immature Gran % Nucleated RBC % Immature Gran # Nucleated RBCs # ABG pH ABG pCO2 ABG pO2 ABG HCO3 ABG Total CO2 ABG O2 Saturation ABG Base Excess Sodium 144 Potassium 3.7 Chloride 105 Carbon Dioxide 31 Anion Gap 11.7 BUN 21 H Creatinine 0.70 GFR Calculation 90 BUN/Creatinine Ratio 30.00 H Glucose 139 H POC Glucose 142 H Calculated Osmolality 290.8 Calcium 7.7 L Total Bilirubin 0.50 Direct Bilirubin 0.30 H Indirect Bilirubin 0.2 AST 1124 H ALT 715 H Alkaline Phosphatase 117 Total Protein 4.8 L Albumin 2.3 L 10/25/16 10/25/16 11:33 17:59 WBC RBC Hgb Hct MCV MCH MCHC RDW Plt Count MPV Neut % (Auto) Lymph % (Auto) [place] % (Auto) Eos % (Auto) Baso % (Auto) Neut # (Auto) Lymph # (Auto) [place] # (Auto) Eos # (Auto) Baso # (Auto) Immature Gran % Nucleated RBC % Immature Gran # Nucleated RBCs # ABG pH ABG pCO2 ABG pO2 ABG HCO3 ABG Total CO2 ABG O2 Saturation ABG Base Excess Sodium Potassium Chloride Carbon Dioxide Anion Gap BUN Creatinine GFR Calculation BUN/Creatinine Ratio Glucose POC Glucose 143 H 192 H Calculated Osmolality Calcium Total Bilirubin Direct Bilirubin Indirect Bilirubin AST ALT Alkaline Phosphatase Total Protein Albumin
--- NOTE | 2016-10-25 12:18 | Operative Note ---
Date of procedure: 10/25/16 Pre-op diagnosis: Respiratory failure with bibasilar infiltrates Post-op diagnosis: other (Retained secretions with bronchitis) Procedure: The patient is on the ventilator after having respiratory insufficiency. She has developed bilateral infiltrates. A bronchoscopy will be done to clear airways. Procedure: The patient is on the ventilator in the ICU. She is given Diprivan for sedation. The fiberoptic bronchoscope was passed to the ET tube into the airways. The bronchopulmonary segment were identified and specimens obtained. Findings: The ET tube is in good position in the trachea. The main bronchi are open. There is some thick mucus and plugs and secretions that were washed and cleared bilaterally. There is some bronchitis present. The right upper lobe, right middle lobe, right lower lobe are all open. The left upper lobe, lingula , left lower lobe are open. Once the airways were clear the procedure was stopped. Washings were sent for culture. She tolerated the procedure well without problems. Impression: Bronchitis with mucous plugging and retained secretions. Plan: We will continue antibiotics and ventilatory support. Anesthesia: conscious sedation Surgeon / Physician: Satya Forbes Estimated blood loss: none Specimens: other (Washings were sent for culture) Condition: stable Disposition: ICU Results - Labs CBC & BMP: 10/25/16 04:00 10/25/16 07:00 Discharge Plan - Discharge Medications No Action Albuterol Inhaler [Proventil Inhaler] 2 puff INH Q4HR HYDROcodone/ACETAMIN 10-325 [[place] 10-325] 1 tablet PO Q4-6H PRN #20 PRN Reason: Pain Moderate To Severe (4-10) fentaNYL [Fentanyl 50 mcg/hr Patch] 1 patch TRANSDERM Q3DAY Diazepam Tab [Valium Tab] 2 mg PO BID Clopidogrel [Plavix] 1 tablet PO DAILY Rosuvastatin [Crestor] 1 tablet PO DAILY Aspirin [Ecotrin] 81 mg PO DAILY Losartan [Cozaar] 50 mg PO DAILY Temazepam [Restoril] 15 mg PO BEDTIME PRN PRN Reason: Sleep Buspirone HCl 7.5 mg PO BID - Follow Up or Referral - Forms/Instructions
--- NOTE | 2016-10-25 13:10 | Hospitalist Progress Note ---
Hospitalist: Subjective Interval history: Patient is very agitated on sedation. She has hx chronic pain. No fever. She had a smear of a bowel movement yesterday per nursing. She has plans for repeat head CT in the a.m. Tube feeds per nutrition. Exam - Constitutional Vitals: Period Temp Pulse Resp BP Sys/Martinez Pulse Ox Last 24 Hr 97.1 F-98.9 F 53-85 10-73 115-196/65-93 94-100 Exam: Sedated and agitated, sitting up. Intubated RRR no M CTAB nonlabored Soft, hypoactive bowel sounds no HSM or masses appreciated Warm and well perfused. No clubbing cyanosis or edema. Full neuro could not be done due to sedation. Reportedly she moves all extremities. Results - Labs CBC & BMP: 10/25/16 04:00 10/25/16 07:00 - Impressions (1) Acute respiratory failure (hypoxic) Status: Acute Assessment and plan: - Mechanical ventilation per pulm wean as tolerated. Cont monitoring blood gases and CXR. Labs in am. - Pulm managing vent - BAL 10/25 showed bilateral bronchitis with mucous plugging and retained secretions which were removed. F/u BAL results. Current Visit: Yes (2) Acute encephalopathy possibly related to pain medication unintentional overdose and expansion of stroke with hemorrhagic transformation -Neuro, CVTS following. Will add Fentanyl drip for history of chronic pain with sedation holidays. Ativan as needed as she chronically takes benzos. -Repeat head CT in am (3) Elevated troponin Status: Acute Assessment and plan: Serial troponins trending down. Serial EKGs. Monitor patient. Cardiology following. ECHO reordered since I do not see results. Unable to anticoagulate due to possible hemorrhagic transformation. Current Visit: Yes (4) Hypertension (essential) Status: Acute Assessment and plan: Cont current treatment. PRN IV htn medications. Current Visit: No (5) chronic pain due to RA, peripheral neuropathy Status: Chronic Current Visit: No - see #2 (6) Recent right occipital stroke and CEA - CVTS following. Neuro checks (7) Acute renal failure- improving - Cont IVF. Avoid nephrotoxic agents. (8) Elevated LFTs - viral hepatitis panel negative. Abdominal U/S reviewed. Serial labs Cards, Pulm, GI are following. SCDs- DVT prophylaxis D/W nurse. No family at bedside.
[2016-10-25] MEDS ORDERED: LORazepam 2 MG/1 ML VIAL IM PRN (13:16)
--- NOTE | 2016-10-25 14:03 | XRay Report ---
Referring Physician: Satya Forbes MD Exam: XR chest 1V portable Date: October 25, 2016 at 3:17 AM Reason: On ventilator Comparison: Chest one view portable October 24, 2016 Findings: The distal tip of the endotracheal tube projects just above the marnie today. It is recommended that it be retracted approximately 2 cm. A feeding tube is also seen extending into the stomach and beyond the [id number]. The cardiac silhouette is normal in size. There are opacities within both lower lung zones. This likely represents atelectasis and possibly pneumonia. No pneumothorax is identified, but there may be mild right pleural fluid. The osseous structures appear stable. Impression: The distal tip of the endotracheal tube now projects just above the marnie. It is recommended that it be retracted approximately 2 cm. This study is otherwise similar to before. PROCEDURE INTERPRETED AT [facility] DEPARTMENT OF RADIOLOGY Final Report Signed by: Dr. Loraine Morales
--- NOTE | 2016-10-25 14:04 | ECHO Report ---
Simran Eubanks 10/24/2016 Exam Date: 08:02 Referring Physician: Shelbie Mayes Technologist: YAJAIRA Age: 61 Ht (in): 64 Wt (lb): 135 FExam Location: [facility] Gender: Echo [id number]: elevated troponin, resp. distress, Indications:MIKE, COPD, CHF, late effect of CVA, HTN BP: 145 / 89 HR: 80 SinusRhythm: PoorTechnical Quality: IMPRESSIONS Moderate reduced LV systolic function with regional wall motion as described below, ejection fraction 40%. Grade 1/4 diastolic dysfunction. Mild left ventricular hypertrophy. Trace mitral regurgitation. Mild tricuspid regurgitation. MEASUREMENTS (Male / Female) Normal Values 2D ECHO LV Diastolic Diameter PLAX 4.9 cm 4.2 - 5.9 / 3.9 - 5.3 cm LV Systolic Diameter PLAX 3.6 cm LV Fractional Shortening PLAX 25.8 % IVS Diastolic Thickness 1.4 cm 0.6 - 1.0 / 0.6 - 0.9 cm LVPW Diastolic Thickness 1.0 cm 0.6 - 1.0 / 0.6 - 0.9 cm RV Internal Dim ED PLAX 2.7 cm Aortic Root Diameter 2.7 cm LA Systolic Diameter LX 3.1 cm 3.0 - 4.0 / 2.7 - 3.8 cm DOPPLER TR Peak Velocity 258.0 cm/s TR Peak Gradient 26.6 mmHg FINDINGS Left Ventricle Mild concentric left ventricular hypertrophy with diastolic dysfunction. Left ventricular ejection fraction is estimated at 40%. The apex, anterior septum and distal anterior wall are akinetic. There is grade 1/4 diastolic dysfunction consistent with impaired relaxation. Right Ventricle Normal right ventricular size. Right Atrium Normal right atrial size. Left Atrium Normal left atrial size. Mitral Valve Mild mitral valve sclerosis. Trace mitral valve regurgitation. Aortic Valve Mild aortic valve sclerosis. Tricuspid Valve MIld tricuspid valve sclerosis. Mild tricuspid valve regurgitation. Tricuspid regurgitation velocities suggest a PAP of 26.6 mmHg + RAP. Pulmonic Valve Pulmonic valve not well visualized. Pericardium No pericardial effusion. Aorta Normal size aortic root and proximal ascending aorta. Susie Higgins MD (Electronically Signed) 25 Oct 2016 09:03Final Date:
[2016-10-25] MEDS: LORazepam 2 MG/1 ML VIAL IV PRN ×2 (14:19→18:28)
--- NOTE | 2016-10-25 14:22 | Event Note ---
Situation remains about the same hoping to be able to try some sedation with Ativan and perhaps get the patient weaned from the ventilator. I to suspect that the elevation of the liver enzymes and the cardiac enzymes are related to ischemia possibly due to an arrest associated either with extension of her stroke or oversedation.
[2016-10-25] MEDS: fentaNYL INJ 1,250 MCG in SODIUM CHLORIDE 0.9% 225 ML IV SCH (14:30)
[2016-10-26] MEDS: INSULIN REGULAR 100 UNIT/ML SUBCUT SCH ×4 (00:19→17:36)
[2016-10-26] MEDS: ALBUTEROL/IPRATROPIUM 3 ML NEB RESP TX SCH ×4 (00:24→19:28)
[2016-10-26] MEDS: methylPREDNISolone SOD SUC 40 MG/1 ML VIAL IV SCH ×3 (01:55→17:37)
[2016-10-26] MEDS: LACTATED RINGERS 1,000 ML IV SCH (06:01)
--- NOTE | 2016-10-26 06:57 | Gastrointestinal Progress Note ---
Assessment and Plan (1) Elevated transaminase level Status: Acute Assessment and plan: The acetaminophen level at 1600 has come back at 6.7mcg/ml, this is below the treatment threshold (63.07 mcg/ml) according to the Jennifer mendieta for tylenol overdose. In my mind this is much more likely to be a narcotic overdose from a combination of the patient's fentanyl patch probably several of her Seneca 10-325 mg in addition to some ischemia possibly secondary to hypertension versus myocardial infarction resulting in ischemic hepatitis. I suspect will be able to tell fairly shortly whether or not this is the case as her numbers bounce back towards normal in another 3-5 days. They may certainly worsen between now and then, the treatment is mostly supportive. I believe we can likely discontinue the Tylenol protocol, as it seems that she would would have had to take a significant portion of the entire bottle to get a toxic effect from the Tylenol portion of the Seneca. This patient may need to rethink living at home or at least find some way to have her medications dispensed to her going forward. 10/24/16--Over the last several hours the patient's AST is increased from 1516 to 1818 with an increase in ALT from 534-->628, but little change in the alkaline phosphatase or bilirubin. Troponin levels have peaked at this point are starting to come down as has the creatinine, previously 1.6 now down to 1.3. I suspect that this patient's liver function tests will peak in the next 24-48 hours and will start to precipitously drop after that period of time provided we support her pressure/cardiac function. I note that Dr. Bishop does not feel completely comfortable with discontinuation the N-acetylcysteine- - this was my recommendation to the on-call hospitalist covering at night. In my opinion this is a fairly straightforward case of ischemic hepatitis, although drug induced hepatitis is still in the differential. 10/25/16--Liver function tests have now started to peak and are coming down with AST going from 1818 down to 1124. The ALT is likely peaking today going from 628-715. Alkaline phosphatase is already dropped from 136-117 and bilirubin has gone from 0.7-0.5. I expect the ALT will show improvement tomorrow as well. Again, these findings are ischemia-driven, likely from hypotension/ anoxia with accidental opioid overdose. 10/26/16--Liver function tests not reordered for this morning, I have put these in. The patient has been placed on fentanyl drip. Attempts are being made to get her off of propofol. Other choices include Ativan versus Haldol, the latter as the advantage of not depressing the respiratory status when controlling her agitation. Current Visit: Yes (2) Guaiac positive stools Status: Acute Assessment and plan: This patient has some mild anemia with hematocrit of 36%. She has guaiac positive stools which are not surprising considering the ischemia she is likely going through. We will continue to watch her for shaunna GI bleed. Upper and lower endoscopy may depend on the results of the above. We will watch her for hematocrit drop over time. I do not anticipate upper and lower endoscopy unless bleeding is suspected this admission. 10/24/16--the hematocrit slightly dropped to 33%, will continue to observe for the present time. I do not anticipate requiring endoscopy this admission. 10/25/16--The HCT is down slightly to 32.1%. No endoscopy anticipated. 10/26/16--No laboratories obtained yet. Current Visit: Yes Gastroenterology - PN: Subj Interval history: Patient is tolerating her tube feeds well. She is having daily bowel movements. She is still on the ventilator, now on a fentanyl drip. She seems calm but is still on the propofol as well. Exam (Progress Note) - Constitutional Vitals: Period Temp Pulse Resp BP Sys/Martinez Pulse Ox Last 24 Hr 97.7 F-98.8 F 51-85 10-18 118-196/61-93 94-100 General appearance: no acute distress - ENT ENT exam: Present: other (ET tube in place, patient intubated) - Respiratory Respiratory exam: Present: clear to auscultation bilaterally. Absent: rhonchi, stridor, wheezes - Cardiovascular Cardiovascular exam: Present: regular rate and rhythm - GI/Abdominal GI/Abdominal exam: Present: normal bowel sounds, soft, other (NG tube in place with tube feeds at 40 mL/h--> residuals low). Absent: distended, tenderness, rebound - Psychiatric Psychiatric exam: Present: normal affect, normal mood Results - Labs CBC & BMP: 10/25/16 04:00 10/25/16 07:00
[2016-10-26 07:12] LABS: Magnesium 2.4 MG/DL (1.8-2.4); Phosphorous 3.3 MG/DL (2.5-4.9); Prealbumin 7.3 MG/DL (20-40)
[2016-10-26 07:36] LABS: Hematocrit 31.7 VOL% (35.7-47.0); Hemoglobin 10.5 GM/DL (12.0-16.0); Immature Granulocytes % 0.4 %; Immature Granulocytes Absolute 0.04 #; Lymphocytes # 0.7 10*3/uL (1.4-4.0); Lymphocytes % 6.8 % (21.3-54.2); Mean Corpuscular HGB Conc 33.1 GM/DL (32-36); Mean Corpuscular Hemoglobin 30 PG (27-34); Mean Corpuscular Volume 90.3 FL (87-102); Mean Platelet Volume 11.4 FL (9.6-12.0); Monocytes # 0.4 10*3/uL (0.11-0.8); Monocytes % 4.1 % (1.7-12.7); Neutrophils # 8.5 10*3/uL (1.4-7.4); Neutrophils % 88.7 % (38.7-73.9); Platelet Count 145 T/CUMM (130-400); Red Blood Count 3.51 MC/CUMM (3.8-5.5); Red Cell Distribution Width 15.4 % (9.3-17.3); White Blood Count 9.6 T/CUMM (4-12)
[2016-10-26 08:16] LABS: Alanine Aminotransferase 544 U/L (13-56); Albumin 2.2 G/DL (3.4-5.0); Alkaline Phosphatase 96 U/L (45-117); Aspartate Amino Transferase 363 U/L (0-37); Bilirubin,Indirect 0.3 MG/DL (0.0-1.0); Bilirubin,Total < 0.39 MG/DL (0.2-1.0); Total Protein 4.7 G/DL (6.4-8.3)
--- NOTE | 2016-10-26 08:17 | Cardiology Progress Note ---
<Aixa Montague E - Last Filed: 10/26/16 08:17> Assessment and Plan - Time spent with patient Time spent with patient: Less than 30 minutes (1) Elevated troponin Status: Acute Assessment and plan: SEE PLAN OF CARE LISTED BELOW. Current Visit: Yes (2) Respiratory distress Status: Acute Assessment and plan: SEE PLAN OF CARE LISTED BELOW. Current Visit: Yes (3) Drug overdose Status: Acute Assessment and plan: SEE PLAN OF CARE LISTED BELOW. Current Visit: Yes (4) Hypertension Status: Chronic Assessment and plan: SEE PLAN OF CARE LISTED BELOW. Current Visit: No (5) Chronic pain syndrome Status: Chronic Assessment and plan: SEE PLAN OF CARE LISTED BELOW. Current Visit: No (6) Carotid stenosis Status: Chronic Assessment and plan: SEE PLAN OF CARE LISTED BELOW. 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 Current Visit: No (8) History of CHF (congestive heart failure) Status: Chronic Assessment and plan: SEE PLAN OF CARE LISTED BELOW. Current Visit: Yes (9) MIKE (obstructive sleep apnea) Status: Chronic Assessment and plan: SEE PLAN OF CARE LISTED BELOW. Current Visit: Yes (10) COPD (chronic obstructive pulmonary disease) Status: Chronic Assessment and plan: SEE PLAN OF CARE LISTED BELOW. Current Visit: No (11) Dyslipidemia Status: Chronic Assessment and plan: SEE PLAN OF CARE LISTED BELOW. Current Visit: Yes (12) Elevated transaminase level Status: Acute Assessment and plan: SEE PLAN OF CARE LISTED BELOW. 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 Higgins Ms. Eubanks is a 61 year old female who was directly admitted to our facility from [facility]. She has a history of hypertension, depression and anxiety, COPD, pneumonia, stroke, rheumatoid arthritis, congestive heart failure, and obstructive sleep apnea. She is s/p right cardotid endarterectomy on 10/15/[address] Oliva. She is intubated and on mechanical ventilation after being unresponsive at home prior to admission. She has had a suspected drug overdose. Her family reports she has difficulty with remembering to take medications and remembering whether or not she has already taken medications. We were consulted to see her due to an elevated troponin. Upon arrival to [facility], her troponin was 0.497. Her CK-MB was 4.1. EKG showed NSR with mild ST depression anterolaterally. We do not have prior records of her having seen a rail walker at [facility] nor at [facility]. The night of admission she was taken for head CT which revealed possible hemorrhagic conversion of her recent stroke. We will not be able to further anticoagulate her. We will defer antiplatelet management to the hospitalist service, neurology, and Dr. Oliva. She has been very agitated on sedation but still has no purposeful movements. She is to have a repeat head CT this morning. Tube feedings have been started. At this time, we are continuing with supportive care. ASSESSMENT/PLAN: 1. ELEVATED TROPONIN - Unsure whether patient has had recent cardiac symptoms. EKG shows mild ST-T changes from previous EKG done 10/09/16. Troponin peak was 3.56, CPK 300, CK-MB 7.3. We do not have records of her previously undergoing cardiac evaluation at our facility. Given the recent hemorrhagic conversion of her stroke, she is not a candidate for anticoagulation. At this time, we will continue medical management and follow her progress. 2. RESPIRATORY FAILURE - Currently intubated and on mechanical ventilation. Pulmonology is following. She underwent bronchoscopy on 10/25/16. 3. SUSPECTED DRUG OVERDOSE - Urine toxicology was positive for opiates and benzodiazepines. 4. HYPERTENSION - Will continue home medication. Will monitor and adjust medications accordingly during hospitalization. Creatinine is down to 0.7. We have started her on a beta-kris will continue to adjust this dosage for optimal blood pressure control. Her blood pressure has fluctuated. If she remains stable, we may be able to reintroduce her ARB. She is requiring a heavy dose of Diprivan for sedation. Once she is weaned from the diprivan, she may be able to better tolerate ARB. 5. CHRONIC PAIN - Related to spinal stenosis, rheumatoid arthritis. Reportedly takes Lisco and Fentanyl patches at home. 6. CAROTID STENOSIS - S/P right carotid endarterectomy 10/15/[address] Oliva. She was recently evaluated in the emergency room on 10/21/2016 for complaints of severe headache. Head CT was done at that time showed no acute abnormality. She followed up with Dr. Oliva on Saturday and did not mention these events to him. 7. HISTORY OF CVA - History of recent CVA with memory impairment and impaired peripheral visual acuity. Repeat head CT done 10/23/2016 revealed increased attenuation worrisome for hemorrhagic transformation of her recent stroke. According to the report, the area of actual infarction has increased since the comparison study now to involve the medial and posterior cortex of the right occipital lobe as well as the right temporal lobe. Neurology is following. 8. HISTORY OF CHF - BNP unremarkable at 237. Echocardiogram on 10/23/16 revealed EF 40%, grade I/IV diastolic dysfunction, mild LVH, trace MR, mild TR. 9. OBSTRUCTIVE SLEEP APNEA - Currently on mechanical ventilation. Continue CPAP once off vent. 10. COPD - Currently on mechanical ventilation. Pulmonology is following. 11. DYSLIPIDEMIA - Lipid panel revealed triglycerides 215, cholesterol 104, LDL 38, HDL 49. Will hold off on statin therapy pending the improvement of her elevated LFTs. 12. ELEVATED TRANSAMINASE LEVEL - She has elevated LFT's. GI is following. This is slowly improving. Dr. Higgins to follow with further plan and addendum. Exam (Progress Note) - Constitutional Vitals: Period Temp Pulse Resp BP Sys/Martinez Pulse Ox Last 24 Hr 97.8 F-98.8 F 51-85 10-18 118-196/61-93 63-100 Exam: General appearance: Orally intubated and sedated on ventilator. Normal weight, no acute distress. - Head Head exam: Present: normal inspection, normocephalic, atraumatic. Absent: hematoma, laceration - Eye Eye exam: Present: EOMI. Absent: conjunctival injection, nystagmus, periorbital swelling, scleral icterus, laceration to eyelids Pupils: Present: PERRL. Absent: constricted, dilated, fixed, irregular, unequal - ENT ENT exam: Present: Orally intubated, normal external ear exam. NGT in place. - Neck Neck exam: Present: normal inspection. Absent: lymphadenopathy, meningismus, tenderness, thyromegaly - Respiratory Respiratory exam: Present: Mechanically ventilated breath sounds. Absent: accessory muscle use - Cardiovascular Cardiovascular exam: Present: regular rate and rhythm. Absent: carotid bruit, gallop, JVD, rubs, murmur - GI/Abdominal GI/Abdominal exam: Present: normal bowel sounds, soft. Absent: distended, firm , guarding, hernia, mass, tenderness, rebound. - Extremities Exam Extremities exam: Present: normal inspection, normal capillary refill. Upper extremity pulses 2+. Lower extremity pulses 2+. Absent: calf tenderness, edema - Back Exam Back exam: Present: Unable to examine due to habitus. Sedated on mechanical ventilator. - Neurological Exam Neurological exam: Present: Limited due to habitus (on ventilator). Very agitated on diprivan. No purposeful movements or following commands today. No resting or essential tremor. - Psychiatric Psychiatric exam: Present: Unable to adequately assess due to patient being sedated and on mechanical ventilation. - Skin Skin exam: Present: normal color, warm, dry, intact. Absent: cyanosis, diaphoretic, rash, urticaria Result/EKG - Labs CBC & BMP: 10/26/16 07:31 10/25/16 07:00 Lab Results: I have reviewed the past 24 hour labs Labs: Laboratory Results - last 24 hr 10/25/16 10/25/16 10/25/16 07:00 11:33 17:59 WBC RBC Hgb Hct MCV MCH MCHC RDW Plt Count MPV Neut % (Auto) Lymph % (Auto) Marion % (Auto) Eos % (Auto) Baso % (Auto) Neut # (Auto) Lymph # (Auto) Marion # (Auto) Eos # (Auto) Baso # (Auto) Immature Gran % Nucleated RBC % Immature Gran # Nucleated RBCs # POC Glucose 143 H 192 H Phosphorus Magnesium Total Bilirubin 0.50 Direct Bilirubin 0.30 H Indirect Bilirubin 0.2 AST 1124 H ALT 715 H Alkaline Phosphatase 117 Total Protein 4.8 L Albumin 2.3 L Prealbumin 10/25/16 10/26/16 10/26/16 23:59 04:55 06:10 WBC RBC Hgb Hct MCV MCH MCHC RDW Plt Count MPV Neut % (Auto) Lymph % (Auto) Marion % (Auto) Eos % (Auto) Baso % (Auto) Neut # (Auto) Lymph # (Auto) Marion # (Auto) Eos # (Auto) Baso # (Auto) Immature Gran % Nucleated RBC % Immature Gran # Nucleated RBCs # POC Glucose 184 H 177 H Phosphorus 3.3 Magnesium 2.4 Total Bilirubin Direct Bilirubin Indirect Bilirubin AST ALT Alkaline Phosphatase Total Protein Albumin Prealbumin 7.3 L 10/26/16 07:31 WBC 9.6 RBC 3.51 L Hgb 10.5 L Hct 31.7 L MCV 90.3 MCH 30 MCHC 33.1 RDW 15.4 Plt Count 145 MPV 11.4 Neut % (Auto) 88.7 H Lymph % (Auto) 6.8 L Marion % (Auto) 4.1 Eos % (Auto) 0.0 Baso % (Auto) 0.0 Neut # (Auto) 8.5 H Lymph # (Auto) 0.7 L Marion # (Auto) 0.4 Eos # (Auto) 0.0 Baso # (Auto) 0.0 Immature Gran % 0.4 Nucleated RBC % 0.0 Immature Gran # 0.04 Nucleated RBCs # 0.00 POC Glucose Phosphorus Magnesium Total Bilirubin Direct Bilirubin Indirect Bilirubin AST ALT Alkaline Phosphatase Total Protein Albumin Prealbumin - EKG EKG results: interpreted by me, sinus rhythm <Susie Higgins - Last Filed: 10/26/16 20:15> Cardiology - PN: Subj Interval history: I have personally interviewed and evaluated the patient, reviewed the chart and discussed medical decision-making with practitioner Eddi. I have read this note and agree with her documentation here in. Exam (Progress Note) - Constitutional Vitals: Period Temp Pulse Resp BP Sys/Martinez Pulse Ox Last 24 Hr 97.3 F-98.1 F 50-76 10-20 118-168/57-94 63-100 Result/EKG - Labs CBC & BMP: 10/26/16 07:31 10/26/16 07:30 Labs: Laboratory Results - last 24 hr 10/25/16 10/26/16 10/26/16 23:59 04:55 06:10 WBC RBC Hgb Hct MCV MCH MCHC RDW Plt Count MPV Neut % (Auto) Lymph % (Auto) Marion % (Auto) Eos % (Auto) Baso % (Auto) Neut # (Auto) Lymph # (Auto) Marion # (Auto) Eos # (Auto) Baso # (Auto) Immature Gran % Nucleated RBC % Immature Gran # Nucleated RBCs # Sodium Potassium Chloride Carbon Dioxide Anion Gap BUN Creatinine GFR Calculation BUN/Creatinine Ratio Glucose POC Glucose 184 H 177 H Calculated Osmolality Calcium Phosphorus 3.3 Magnesium 2.4 Total Bilirubin Direct Bilirubin Indirect Bilirubin AST ALT Alkaline Phosphatase Total Protein Albumin Prealbumin 7.3 L 10/26/16 10/26/16 10/26/16 07:30 07:31 07:31 WBC 9.6 RBC 3.51 L Hgb 10.5 L Hct 31.7 L MCV 90.3 MCH 30 MCHC 33.1 RDW 15.4 Plt Count 145 MPV 11.4 Neut % (Auto) 88.7 H Lymph % (Auto) 6.8 L Marion % (Auto) 4.1 Eos % (Auto) 0.0 Baso % (Auto) 0.0 Neut # (Auto) 8.5 H Lymph # (Auto) 0.7 L Marion # (Auto) 0.4 Eos # (Auto) 0.0 Baso # (Auto) 0.0 Immature Gran % 0.4 Nucleated RBC % 0.0 Immature Gran # 0.04 Nucleated RBCs # 0.00 Sodium 142 Potassium 4.0 Chloride 105 Carbon Dioxide 29 Anion Gap 12.0 BUN 26 H Creatinine 0.70 GFR Calculation 91 BUN/Creatinine Ratio 37.00 H Glucose 166 H POC Glucose Calculated Osmolality 291.1 Calcium 7.7 L Phosphorus Magnesium 2.4 Total Bilirubin < 0.39 Direct Bilirubin 0.10 Indirect Bilirubin 0.3 AST 363 H ALT 544 H Alkaline Phosphatase 96 Total Protein 4.7 L Albumin 2.2 L Prealbumin 10/26/16 10/26/16 11:23 17:01 WBC RBC Hgb Hct MCV MCH MCHC RDW Plt Count MPV Neut % (Auto) Lymph % (Auto) Marion % (Auto) Eos % (Auto) Baso % (Auto) Neut # (Auto) Lymph # (Auto) Marion # (Auto) Eos # (Auto) Baso # (Auto) Immature Gran % Nucleated RBC % Immature Gran # Nucleated RBCs # Sodium Potassium Chloride Carbon Dioxide Anion Gap BUN Creatinine GFR Calculation BUN/Creatinine Ratio Glucose POC Glucose 145 H 182 H Calculated Osmolality Calcium Phosphorus Magnesium Total Bilirubin Direct Bilirubin Indirect Bilirubin AST ALT Alkaline Phosphatase Total Protein Albumin Prealbumin
[2016-10-26] MEDS: CARVEDILOL 6.25 MG TABLET PO SCH ×2 (08:32→21:37)
[2016-10-26] MEDS: cefTRIAXone 1,000 MG in SODIUM CHLORIDE 0.9% 100 ML IV SCH (08:32)
[2016-10-26] MEDS: LORazepam 2 MG/1 ML VIAL IV PRN (08:33)
[2016-10-26 08:37] LABS: Calcium 7.7 MG/DL (8.5-10.1); Magnesium 2.4 MG/DL (1.8-2.4); Osmolality,Calculated 291.1 MOS/KG (273-304)
[2016-10-26] MEDS: PROPOFOL 1,000 MG/100 ML BOTTLE IV SCH ×2 (08:42→21:18)
--- NOTE | 2016-10-26 09:04 | Event Note ---
This morning there appears to be no significant change in his long status she is due for another CT brain today. Her neck is healing appropriately there are no significant changes that I would offer at this time
--- NOTE | 2016-10-26 09:14 | Pulmonology Progress Note ---
Pulmonary - PN: Subj Interval history: Patient is a 61-year-old white lady that has a component of COPD along with rheumatoid arthritis. She has significant vascular disease and had a right carotid endarterectomy last week. She apparently was doing fairly well until yesterday when she became less responsive. There is a question of a possible drug overdose but it looks like she is extended her CVA. She is on the ventilator now and still has a large A-a O2 gradient. Yesterday we did a therapeutic bronchoscopy and cleared out some secretions. She has been stable on the ventilator. Her lungs actually sound a little better. Will try to lower her FiO2 and continue treatment. Exam (Progress Note) - Constitutional Vitals: Period Temp Pulse Resp BP Sys/Martinez Pulse Ox Last 24 Hr 97.8 F-98.8 F 51-74 10-17 118-171/61-91 63-100 Exam: General appearance: normal weight, no acute distress (She appears comfortable on the ventilator. She does not follow commands but does move around.) - Head Head exam: Present: normal inspection, normocephalic - Eye Eye exam: Present: EOMI. Absent: scleral icterus Pupils: Present: XAVIER - ENT ENT exam: Present: normal exam, other (ET tube is in good position) - Neck Neck exam: Absent: lymphadenopathy, thyromegaly - Respiratory Respiratory exam: Present: The patient has fairly good breath sounds bilaterally she is moving air fairly well with some mild rhonchi. Her lungs are sounding better - Cardiovascular Cardiovascular exam: Present: regular rate and rhythm. Absent: gallop, systolic murmur - GI/Abdominal GI/Abdominal exam: Present: soft. Absent: distended, organomegaly, tenderness - Extremities Exam Extremities exam: Absent: calf tenderness, edema - Neurological Exam Neurological exam: Present: other (She is still requiring sedation or she gets very restless.) - Psychiatric Psychiatric exam: Absent: anxious - Skin Skin exam: Present: warm, dry Results - Labs CBC & BMP: 10/26/16 07:31 10/26/16 07:30 Assessment and Plan (1) Acute respiratory failure Status: Acute Assessment and plan: Patient was found unresponsive and having respiratory difficulties and is now intubated on the ventilator. Still has relative hypoxemia. She looks like she is doing a little better and will try to lower her FiO2. Current Visit: Yes (2) chronic pain Status: Chronic Assessment and plan: Patient apparently takes a lot of narcotics and may have overdosed. Current Visit: No (3) Hypertension Status: Chronic Assessment and plan: Patient's blood pressure and heart rate are stable at present. She does appear hemodynamically stable. Current Visit: No (4) COPD (chronic obstructive pulmonary disease) Status: Chronic Assessment and plan: Patient has a history of COPD and will continue with bronchodilator therapy. Will add steroids and see how her breathing does. Her lungs do sound better today. Current Visit: No (5) Elevated troponin Status: Acute Assessment and plan: Patient has elevated cardiac enzymes and will be evaluated by cardiology. Current Visit: Yes (6) Drug overdose Status: Acute Assessment and plan: Patient does take some narcotics but now it looks like she is extended her CVA. She is starting to respond some. She is moving her extremities okay. Current Visit: Yes (7) Elevated transaminase level Status: Acute Assessment and plan: She has elevated liver enzymes and GI is evaluating. Her liver enzymes are getting better. 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 She does have a large area of infarct in the right parietal area. She is starting to respond better and moving around a little more. Current Visit: No (9) Carotid stenosis Status: Chronic Assessment and plan: The patient had a right carotid endarterectomy last week. Current Visit: Yes
--- NOTE | 2016-10-26 14:45 | Neurology Progress Note ---
Neurology - PN : Subjective Interval history: Patient seems to be doing better. She is a still on vent. She is opening her eyes weekly and following simple commands on the right side Exam (Progress Note) - Constitutional Vitals: Period Temp Pulse Resp BP Sys/Martinez Pulse Ox Last 24 Hr 97.8 F-98 F 50-74 10-20 118-168/57-84 63-100 Exam: GENERAL: Patient is in no acute distress. NECK: Neck is supple. There is no JVD. No carotid bruits present. No thyroid masses. CVS: First and second heart sounds are normal. There is no S3 present. Regular rate and rhythm. RESPIRATORY: Lungs are clear to auscultation without any rales or rhonchi. ABDOMEN: Soft and non-tender. Bowel sounds are present. There is no hepatosplenomegaly. EXT: There is no palpable edema. Peripheral pulses are present. Skin: No rashes Central Nervous system: General: Sedated Speech: None Comprehension: None Facial expressions: Normal Cranial Nerves: Pupils are equally reactive to light. Doll's head eye movements are positive. No facial asymmetry seen Motor: Bulk and Tone is normal. Strength: Moving right side but no movement in the left side Sensory: Cannot be assessed Reflexes: 1+ and symmetrical Cerebellar function: Normal finger to nose and heel to lovelace testing. Toes: Equivocal Gait: Cannot be assessed Results - Labs CBC & BMP: 10/26/16 07:31 10/26/16 07:30 Assessment and Plan (1) CVA (cerebral vascular accident) Status: Acute Assessment and plan: Repeat CAT scan today. Continue to hold off to any anticoagulation Patient is overall stable from neuro standpoint Current Visit: Yes
--- NOTE | 2016-10-26 15:49 | Hospitalist Progress Note ---
Hospitalist: Subjective Interval history: No new complaints. No significant overnight events. Off sedation she seems to be moving her right side per neurology. No fever. Exam - Constitutional Vitals: Period Temp Pulse Resp BP Sys/Martinez Pulse Ox Last 24 Hr 97.3 F-98.1 F 50-74 10-20 118-168/57-94 63-100 Exam: Sedated and intubated on the vent, no acute distress RRR no M CTAB nonlabored Soft, hypoactive bowel sounds no HSM or masses appreciated Warm and well perfused. No clubbing cyanosis or edema. Full neuro could not be done due to sedation. Results - Labs CBC & BMP: 10/26/16 07:31 10/26/16 07:30 - Impressions (1) Acute respiratory failure (hypoxic) Status: Acute Assessment and plan: - Mechanical ventilation per pulm wean as tolerated. Cont monitoring blood gases and CXR. Labs in am. - Pulm managing vent - BAL 10/25 showed bilateral bronchitis with mucous plugging and retained secretions which were removed. F/u BAL results. Current Visit: Yes (2) Acute encephalopathy possibly related to pain medication unintentional overdose and expansion of stroke with hemorrhagic transformation -Neuro, CVTS following. Continue fentanyl drip for history of chronic pain with sedation holidays. Ativan as needed as she chronically takes benzos. -Repeat head CT is pending (3) Elevated troponin Status: Acute Assessment and plan: Serial troponins trending down. Serial EKGs. Monitor patient. Cardiology following. ECHO reordered and results are still pending. Unable to anticoagulate due to possible hemorrhagic transformation. Current Visit: Yes (4) Hypertension (essential) Status: Acute Assessment and plan: Cont current treatment. PRN IV htn medications. Current Visit: No (5) chronic pain due to RA, peripheral neuropathy Status: Chronic Current Visit: No - see #2 (6) Recent right occipital stroke and CEA - CVTS following. Neuro checks (7) Acute renal failure- improving - Cont IVF. Avoid nephrotoxic agents. (8) Elevated LFTs - viral hepatitis panel negative. Abdominal U/S reviewed. Serial labs Cards, Pulm, GI are following. SCDs- DVT prophylaxis D/W nurse. No family at bedside.
--- NOTE | 2016-10-26 16:13 | CT Report ---
History: CVA Date: 10/26/2016 Study: CT head without contrast Comparison exam: October 24, [address] sections were obtained through the head without IV contrast. This CT exam was performed using one or more the following dose reduction techniques: Automated exposure control, adjustment of the MA and/or KV according to patient size, or use of iterative reconstruction technique. The ventricles are midline in position without evidence of hydrocephalus. The wedge-shaped area of largely decreased density involving the right temporal and occipital lobes with slight extension into the parieto-occipital border zone area compatible with recent CVA is again noted. This is compatible with a right posterior cerebral artery distribution infarct. There is some mild smudge like increased density scattered in the infarct compatible with petechial hemorrhage as before. There is no gross worsening in the petechial hemorrhage compared to the previous study. Areas of previous ischemia are also noted in the globus pallidus region bilaterally as before. There is no new mass or new area of hemorrhage or new area of gross ischemia. There is no extra-axial hematoma.. Osseous structures are unchanged. There is continued moderate or greater mucosal thickening in the maxillary, ethmoid, and sphenoid sinuses, with slightly improved aeration of the frontal sinuses. Impression: Large right [employer] distribution area of recent ischemia with associated scattered petechial hemorrhage. This is grossly similar to the comparison study. No adverse interval changes PROCEDURE INTERPRETED AT [facility] DEPARTMENT OF RADIOLOGY Final Report Signed by: Dr. Ciarra Michel
[2016-10-26] MEDS: fentaNYL INJ 1,250 MCG in SODIUM CHLORIDE 0.9% 225 ML IV SCH (21:17)
[2016-10-27] MEDS: INSULIN REGULAR 100 UNIT/ML SUBCUT SCH ×4 (00:07→17:59)
[2016-10-27] MEDS: LORazepam 2 MG/1 ML VIAL IV PRN ×2 (00:08→20:25)
[2016-10-27] MEDS: ALBUTEROL/IPRATROPIUM 3 ML NEB RESP TX SCH ×4 (00:35→19:17)
[2016-10-27] MEDS: methylPREDNISolone SOD SUC 40 MG/1 ML VIAL IV SCH ×3 (01:03→16:59)
[2016-10-27] MEDS: LACTATED RINGERS 1,000 ML IV SCH ×2 (02:55→23:02)
[2016-10-27 03:17] LABS: ABG HCO3 29.3 MMOL/L (20-26); ABG Oxygen Saturation 96.7 % (95-100); ABG PCO2 33.2 MM HG (35-48); ABG PH 7.563 (7.35-7.45); ABG PO2 88.8 MM HG (80-95); ABG TCO2 30.3 MMOL/L (23-27); Allen Test Positive; Pt O2 Delivery Device Ventilator
[2016-10-27 03:22] LABS: Hematocrit 30.8 VOL% (35.7-47.0); Hemoglobin 9.9 GM/DL (12.0-16.0); Immature Granulocytes % 0.5 %; Immature Granulocytes Absolute 0.04 #; Lymphocytes # 0.5 10*3/uL (1.4-4.0); Lymphocytes % 5.9 % (21.3-54.2); Mean Corpuscular HGB Conc 32.1 GM/DL (32-36); Mean Corpuscular Hemoglobin 29 PG (27-34); Mean Corpuscular Volume 89.8 FL (87-102); Mean Platelet Volume 11.9 FL (9.6-12.0); Monocytes # 0.5 10*3/uL (0.11-0.8); Monocytes % 5.5 % (1.7-12.7); Neutrophils # 7.3 10*3/uL (1.4-7.4); Neutrophils % 88.1 % (38.7-73.9); Platelet Count 163 T/CUMM (130-400); Red Blood Count 3.43 MC/CUMM (3.8-5.5); Red Cell Distribution Width 15.3 % (9.3-17.3); White Blood Count 8.3 T/CUMM (4-12)
[2016-10-27 03:51] LABS: Calcium 7.8 MG/DL (8.5-10.1); Magnesium 2.4 MG/DL (1.8-2.4); Osmolality,Calculated 290.1 MOS/KG (273-304); Potassium 3.7 MMOL/L (3.5-5.1)
[2016-10-27 03:55] LABS: Albumin 2.1 G/DL (3.4-5.0); Bilirubin,Direct 0.1 MG/DL (0.0-0.20); Bilirubin,Indirect 0.6 MG/DL (0.0-1.0); Bilirubin,Total 0.7 MG/DL (0.2-1.0); Total Protein 4.7 G/DL (6.4-8.3)
[2016-10-27] MEDS: PROPOFOL 1,000 MG/100 ML BOTTLE IV SCH ×3 (06:33→20:26)
--- NOTE | 2016-10-27 07:38 | Pulmonology Progress Note ---
Pulmonary - PN: Subj Interval history: Patient with severe COPD, intubated for resp distress, underwent bronch yesterday, had significant amount of secretions removed. Continues on the vent today. No sig change overnight per nursing Exam (Progress Note) - Constitutional Vitals: Period Temp Pulse Resp BP Sys/Martinez Pulse Ox Last 24 Hr 97.6 F-98.2 F 47-76 10-20 134-168/64-94 63-98 General appearance: no acute distress - Head Head exam: Present: normal inspection - ENT ENT exam: Present: normal exam - Respiratory Respiratory exam: Present: clear to auscultation bilaterally - Cardiovascular Cardiovascular exam: Present: bradycardia - GI/Abdominal GI/Abdominal exam: Present: normal bowel sounds Results - Labs CBC & BMP: 10/27/16 03:00 10/27/16 03:00 Lab Results: I have reviewed the past 24 hour labs Labs: 7.56/33/88 - Diagnostic Findings Procedure: Chest x-ray: image reviewed by me, report reviewed by me (I reviewed the report and imags. Appears to have resolving RLL infiltrate) Assessment and Plan (1) COPD (chronic obstructive pulmonary disease) Status: Chronic Assessment and plan: Cont steroids and nebs Current Visit: No (2) Acute respiratory failure Status: Acute Assessment and plan: secondary to inadvertant overdose vs COPD exacerbation vs pneumonia. Speciation from bronch washings are still pending, GPC and GNR on the gram stain. Patient clinically improving. Will adjust vent settings to lung protective low tidal volume strategy. Current Visit: Yes
[2016-10-27] MEDS: cefTRIAXone 1,000 MG in SODIUM CHLORIDE 0.9% 100 ML IV SCH (08:00)
[2016-10-27] MEDS: CARVEDILOL 6.25 MG TABLET PO SCH ×3 (09:04→22:24)
--- NOTE | 2016-10-27 09:15 | Hospitalist Progress Note ---
Hospitalist: Subjective Interval history: No fever. Appears more calm per nurse. Nurse reports pt followed commands with neuro yesterday. She squeezed my hand on left, not on right and moves both feet. Exam - Constitutional Vitals: Period Temp Pulse Resp BP Sys/Martinez Pulse Ox Last 24 Hr 97.4 F-98.2 F 45-76 10-20 134-168/64-94 92-98 Exam: Sedated and intubated on the vent, no acute distress RRR no M CTAB nonlabored Soft, hypoactive bowel sounds no HSM or masses appreciated Warm and well perfused. No clubbing cyanosis or edema. Full neuro could not be done due to sedation. Moves left hand and both feet Results - Labs CBC & BMP: 10/27/16 03:00 10/27/16 03:00 - Impressions (1) Acute respiratory failure (hypoxic) Status: Acute Assessment and plan: - Mechanical ventilation per pulm wean as tolerated. Cont monitoring blood gases and CXR. Labs in am. - Pulm managing vent - BAL 10/25 showed bilateral bronchitis with mucous plugging and retained secretions which were removed. F/u BAL results. Current Visit: Yes (2) Acute encephalopathy possibly related to pain medication unintentional overdose and expansion of stroke with hemorrhagic transformation -Neuro, CVTS following. Continue fentanyl drip for history of chronic pain with sedation holidays. Ativan as needed as she chronically takes benzos. -Repeat head CT is unchanged. (3) Elevated troponin Status: Acute Assessment and plan: Serial troponins trending down. Serial EKGs. Monitor patient. Cardiology following. ECHO reordered and results are still pending. Unable to anticoagulate due to possible hemorrhagic transformation. Current Visit: Yes (4) Hypertension (essential) Status: Acute Assessment and plan: Cont current treatment. PRN IV htn medications. Current Visit: No (5) chronic pain due to RA, peripheral neuropathy Status: Chronic Current Visit: No - see #2 (6) Recent right occipital stroke and CEA - CVTS following. Neuro checks (7) Acute renal failure- improving - Cont IVF. Avoid nephrotoxic agents. (8) Elevated LFTs - viral hepatitis panel negative. Abdominal U/S reviewed. Serial labs GI/DVT prophylaxis- Protonix/ SCDs. D/W grandchildren and nurse and all questions answered. I will be away several days. One of my associates will follow in my absence.
[2016-10-27] MEDS: PANTOPRAZOLE 40 MG VIAL IV SCH (09:30)
--- NOTE | 2016-10-27 10:02 | Cardiology Progress Note ---
Assessment and Plan (1) Late effects of CVA (cerebrovascular accident) Status: Acute Current Visit: No (2) Hypertension Status: Chronic Current Visit: No (3) COPD (chronic obstructive pulmonary disease) Status: Chronic Current Visit: No (4) Chronic pain syndrome Status: Chronic Current Visit: No (5) Elevated troponin Status: Acute Current Visit: Yes (6) Drug overdose Status: Acute Current Visit: Yes (7) Carotid stenosis Status: Chronic Current Visit: Yes (8) History of CHF (congestive heart failure) Status: Chronic Current Visit: Yes (9) MIKE (obstructive sleep apnea) Status: Chronic Current Visit: Yes (10) Elevated transaminase level Status: Acute Current Visit: Yes (11) Acute respiratory failure Status: Acute Current Visit: Yes (12) Dyslipidemia Status: Chronic Current Visit: Yes Cardiology - PN: Subj Interval history: 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 Higgins Summary: Ms. Eubanks is a 61 year old female who was directly admitted to our facility from [facility]. She has a history of hypertension , depression and anxiety, COPD, pneumonia, stroke, rheumatoid arthritis, congestive heart failure, and obstructive sleep apnea. She is s/p right cardotid endarterectomy on 10/15/[address] Oliva. She was admitted to the hospital with mental status changes requiring intubation, suspected narcotic overdose as well as conversion of an ischemic stroke into a hemorrhagic stroke. We were consulted to see the patient because of a mildly elevated troponin and abnormal ECG. Because of her hemorrhagic stroke we are unable to offer anticoagulation or antiplatelet therapy, she will be medically managed. ASSESSMENT/PLAN: 1. ELEVATED TROPONIN - Unsure whether patient has had recent cardiac symptoms. EKG shows mild ST-T changes from previous EKG done 10/09/16. Troponin peak was 3.56, CPK 300, CK-MB 7.3. We do not have records of her previously undergoing cardiac evaluation at our facility. Given the recent hemorrhagic conversion of her stroke, she is not a candidate for anticoagulation. At this time, we will continue medical management and follow her progress. This may be secondary to underperfusion from her narcotic overdose. 2. RESPIRATORY FAILURE - Currently intubated and on mechanical ventilation. Pulmonology is following. She underwent bronchoscopy on 10/25/16 to clear secretions. 3. SUSPECTED DRUG OVERDOSE - Urine toxicology was positive for opiates and benzodiazepines. 4. HYPERTENSION -overall controlled with some minimal permissive hypertension due to recent stroke. 5. CHRONIC PAIN - Related to spinal stenosis, rheumatoid arthritis. Reportedly takes Forrest and Fentanyl patches at home. 6. CAROTID STENOSIS - S/P right carotid endarterectomy 10/15/[address] Oliva. She was recently evaluated in the emergency room on 10/21/2016 for complaints of severe headache. Head CT was done at that time showed no acute abnormality. She followed up with Dr. Oliva on Saturday and did not mention these events to him. 7. HISTORY OF CVA - History of recent CVA with memory impairment and impaired peripheral visual acuity. Repeat head CT done 10/23/2016 revealed increased attenuation worrisome for hemorrhagic transformation of her recent stroke. According to the report, the area of actual infarction has increased since the comparison study now to involve the medial and posterior cortex of the right occipital lobe as well as the right temporal lobe. Neurology is following. 8. HISTORY OF CHF - BNP unremarkable at 237. Echocardiogram on 10/23/16 revealed EF 40%, grade I/IV diastolic dysfunction, mild LVH, trace MR, mild TR. 9. OBSTRUCTIVE SLEEP APNEA - Currently on mechanical ventilation. Continue CPAP once off vent. 10. COPD - Currently on mechanical ventilation. Pulmonology is following. 11. DYSLIPIDEMIA - Lipid panel revealed triglycerides 215, cholesterol 104, LDL 38, HDL 49. Will hold off on statin therapy pending the improvement of her elevated LFTs. 12. ELEVATED TRANSAMINASE LEVEL - She has elevated LFT's. GI is following. This is slowly improving. She suspected to have some global underperfusion of her organs related to the drug overdose. At this point we will sign off since we are unable to offer more than medical therapy. Please reconsult for any dynamic changes. Exam (Progress Note) - Constitutional Vitals: Period Temp Pulse Resp BP Sys/Martinez Pulse Ox Last 24 Hr 97.4 F-98.2 F 45-76 10-20 134-168/64-94 92-98 Exam: General appearance: normal weight, no acute distress, intubated, not spontaneously arousable during the exam, although will respond to stimulation. - Head Head exam: Present: normocephalic, atraumatic,. Absent: hematoma, laceration - Eye Eye exam: Absent: conjunctival injection, nystagmus, periorbital swelling, scleral icterus, laceration to eyelids Pupils: Present: XAVIER. Absent: constricted, dilated, fixed, irregular, unequal - ENT ENT exam: Present: Endotracheal tube in place - Neck Neck exam: Present: normal inspection. Absent: lymphadenopathy, meningismus, tenderness, thyromegaly - Respiratory Respiratory exam: Present: clear to auscultation bilaterally anteriorly, there is normal rise with ventilated breaths. Absent: accessory muscle use, chest wall tenderness - Cardiovascular Cardiovascular exam: Present: regular rate and rhythm. Absent: carotid bruit, gallop, JVD, rubs - GI/Abdominal GI/Abdominal exam: Present: normal bowel sounds. Absent: distended, firm, guarding, hernia, mass, tenderness, rebound, soft - Extremities Exam Extremities exam: Present: normal inspection, normal capillary refill. Absent: calf tenderness, edema - Back Exam Back exam: Unable to assess due to patient being on the ventilator - Neurological Exam Neurological exam: Unable to fully assess due to patient being on the ventilator. She does not move her right upper extremity spontaneously due to stroke. - Psychiatric Psychiatric exam: Unable to assess due to patient being on the ventilator. - Skin Skin exam: Present: normal color, warm, dry, intact. Absent: cyanosis, diaphoretic, rash, urticaria Result/EKG - Labs CBC & BMP: 10/27/16 03:00 10/27/16 03:00 Lab Results: I have reviewed the past 24 hour labs Labs: Laboratory Results - last 24 hr 10/26/16 10/26/16 10/27/16 11:23 17:01 00:03 WBC RBC Hgb Hct MCV MCH MCHC RDW Plt Count MPV Neut % (Auto) Lymph % (Auto) Clinch % (Auto) Eos % (Auto) Baso % (Auto) Neut # (Auto) Lymph # (Auto) Clinch # (Auto) Eos # (Auto) Baso # (Auto) Immature Gran % Nucleated RBC % Immature Gran # Nucleated RBCs # ABG pH ABG pCO2 ABG pO2 ABG HCO3 ABG Total CO2 ABG O2 Saturation ABG Base Excess FiO2 Sodium Potassium Chloride Carbon Dioxide Anion Gap BUN Creatinine GFR Calculation BUN/Creatinine Ratio Glucose POC Glucose 145 H 182 H 197 H Calculated Osmolality Calcium Magnesium Total Bilirubin Direct Bilirubin Indirect Bilirubin AST ALT Alkaline Phosphatase Total Protein Albumin 10/27/16 10/27/16 10/27/16 03:00 03:00 03:00 WBC 8.3 RBC 3.43 L Hgb 9.9 L Hct 30.8 L MCV 89.8 MCH 29 MCHC 32.1 RDW 15.3 Plt Count 163 MPV 11.9 Neut % (Auto) 88.1 H Lymph % (Auto) 5.9 L Clinch % (Auto) 5.5 Eos % (Auto) 0.0 Baso % (Auto) 0.0 Neut # (Auto) 7.3 Lymph # (Auto) 0.5 L Clinch # (Auto) 0.5 Eos # (Auto) 0.0 Baso # (Auto) 0.0 Immature Gran % 0.5 Nucleated RBC % 0.0 Immature Gran # 0.04 Nucleated RBCs # 0.00 ABG pH ABG pCO2 ABG pO2 ABG HCO3 ABG Total CO2 ABG O2 Saturation ABG Base Excess FiO2 Sodium 142 Potassium 3.7 Chloride 104 Carbon Dioxide 29 Anion Gap 12.7 BUN 25 H Creatinine 0.60 GFR Calculation 95 BUN/Creatinine Ratio 41.00 H Glucose 164 H POC Glucose Calculated Osmolality 290.1 Calcium 7.8 L Magnesium 2.4 Total Bilirubin 0.70 Direct Bilirubin 0.10 Indirect Bilirubin 0.6 AST 138 H ALT 373 H Alkaline Phosphatase 93 Total Protein 4.7 L Albumin 2.1 L 10/27/16 10/27/16 03:00 05:57 WBC RBC Hgb Hct MCV MCH MCHC RDW Plt Count MPV Neut % (Auto) Lymph % (Auto) Clinch % (Auto) Eos % (Auto) Baso % (Auto) Neut # (Auto) Lymph # (Auto) Clinch # (Auto) Eos # (Auto) Baso # (Auto) Immature Gran % Nucleated RBC % Immature Gran # Nucleated RBCs # ABG pH 7.563 H ABG pCO2 33.2 L ABG pO2 88.8 ABG HCO3 29.3 H ABG Total CO2 30.3 H ABG O2 Saturation 96.7 ABG Base Excess 7.0 H FiO2 60.00 Sodium Potassium Chloride Carbon Dioxide Anion Gap BUN Creatinine GFR Calculation BUN/Creatinine Ratio Glucose POC Glucose 166 H Calculated Osmolality Calcium Magnesium Total Bilirubin Direct Bilirubin Indirect Bilirubin AST ALT Alkaline Phosphatase Total Protein Albumin
--- NOTE | 2016-10-27 10:36 | XRay Report ---
History: Patient on ventilator Date: 10/27/2016 at 3:24 AM Study: Chest x-ray AP portable Comparison exam: October 25, 2016 The endotracheal and nasogastric tubes are well-positioned. The cardiac silhouette is not enlarged. There is no mediastinal mass. The pulmonary vasculature is not engorged. There is some patchy and hazy bibasilar atelectasis/infiltrate with slightly improved aeration in the right base on the current exam. There is no new or worsening process. There is no pneumothorax. Osseous structures are similar. Impression: Continued bibasilar atelectasis/infiltrate with slightly improved aeration on the right PROCEDURE INTERPRETED AT [facility] DEPARTMENT OF RADIOLOGY Final Report Signed by: Dr. Ciarra Michel
--- NOTE | 2016-10-27 14:27 | Gastrointestinal Progress Note ---
Assessment and Plan (1) Elevated transaminase level Status: Acute Assessment and plan: The acetaminophen level at 1600 has come back at 6.7mcg/ml, this is below the treatment threshold (63.07 mcg/ml) according to the Jennifer mendieta for tylenol overdose. In my mind this is much more likely to be a narcotic overdose from a combination of the patient's fentanyl patch probably several of her [place] 10-325 mg in addition to some ischemia possibly secondary to hypertension versus myocardial infarction resulting in ischemic hepatitis. I suspect will be able to tell fairly shortly whether or not this is the case as her numbers bounce back towards normal in another 3-5 days. They may certainly worsen between now and then, the treatment is mostly supportive. I believe we can likely discontinue the Tylenol protocol, as it seems that she would would have had to take a significant portion of the entire bottle to get a toxic effect from the Tylenol portion of the [place]. This patient may need to rethink living at home or at least find some way to have her medications dispensed to her going forward. 10/24/16--Over the last several hours the patient's AST is increased from 1516 to 1818 with an increase in ALT from 534-->628, but little change in the alkaline phosphatase or bilirubin. Troponin levels have peaked at this point are starting to come down as has the creatinine, previously 1.6 now down to 1.3. I suspect that this patient's liver function tests will peak in the next 24-48 hours and will start to precipitously drop after that period of time provided we support her pressure/cardiac function. I note that Dr. Bishop does not feel completely comfortable with discontinuation the N-acetylcysteine- - this was my recommendation to the on-call hospitalist covering at night. In my opinion this is a fairly straightforward case of ischemic hepatitis, although drug induced hepatitis is still in the differential. 10/25/16--Liver function tests have now started to peak and are coming down with AST going from 1818 down to 1124. The ALT is likely peaking today going from 628-715. Alkaline phosphatase is already dropped from 136-117 and bilirubin has gone from 0.7-0.5. I expect the ALT will show improvement tomorrow as well. Again, these findings are ischemia-driven, likely from hypotension/ anoxia with accidental opioid overdose. 10/26/16--Liver function tests not reordered for this morning, I have put these in. The patient has been placed on fentanyl drip. Attempts are being made to get her off of propofol. Other choices include Ativan versus Haldol, the latter as the advantage of not depressing the respiratory status when controlling her agitation. 10/27/16--liver function tests look better, nearly back to normal again. The should continue to improve until they reach a plateau point, depending on what they were pre-ischemic event. Once again this is ischemic hepatitis. Will sign off at this time as the patient appears to be doing much better, from a GI standpoint Current Visit: Yes (2) Guaiac positive stools Status: Acute Assessment and plan: This patient has some mild anemia with hematocrit of 36%. She has guaiac positive stools which are not surprising considering the ischemia she is likely going through. We will continue to watch her for shaunna GI bleed. Upper and lower endoscopy may depend on the results of the above. We will watch her for hematocrit drop over time. I do not anticipate upper and lower endoscopy unless bleeding is suspected this admission. 10/24/16--the hematocrit slightly dropped to 33%, will continue to observe for the present time. I do not anticipate requiring endoscopy this admission. 10/25/16--The HCT is down slightly to 32.1%. No endoscopy anticipated. 10/26/16--No laboratories obtained yet. 10/27/16--the patient's hematocrit is 30% and stable. No endoscopy anticipated, please let me know if I can be of further help but will sign off at this time. Current Visit: Yes Gastroenterology - PN: Subj Interval history: The patient's liver function tests are almost completely returned to normal. She is still not been weaned from the ventilator, due to agitation during the weaning trials. Exam (Progress Note) - Constitutional Vitals: Period Temp Pulse Resp BP Sys/Martinez Pulse Ox Last 24 Hr 97.4 F-98.2 F 45-76 10-19 138-168/62-87 92-98 General appearance: no acute distress - Respiratory Respiratory exam: Present: clear to auscultation bilaterally - Cardiovascular Cardiovascular exam: Present: regular rate and rhythm - GI/Abdominal GI/Abdominal exam: Present: normal bowel sounds, soft. Absent: guarding, tenderness, rebound - Extremities Exam Extremities exam: Absent: normal inspection - Neurological Exam Neurological exam: Present: alert, oriented X3, CN II-XII intact. Absent: motor sensory deficit - Psychiatric Psychiatric exam: Present: normal affect, normal mood - Skin Skin exam: Present: warm Results - Labs CBC & BMP: 10/27/16 03:00 10/27/16 03:00
[2016-10-27] MEDS: fentaNYL INJ 1,250 MCG in SODIUM CHLORIDE 0.9% 225 ML IV SCH (22:26)
[2016-10-28] MEDS: INSULIN REGULAR 100 UNIT/ML SUBCUT SCH ×4 (00:38→18:17)
[2016-10-28] MEDS: methylPREDNISolone SOD SUC 40 MG/1 ML VIAL IV SCH ×3 (00:39→16:37)
[2016-10-28] MEDS: ALBUTEROL/IPRATROPIUM 3 ML NEB RESP TX SCH ×4 (00:51→19:41)
[2016-10-28] MEDS: PROPOFOL 1,000 MG/100 ML BOTTLE IV SCH ×5 (02:07→22:46)
[2016-10-28 03:46] LABS: Basophils % 0.1 % (0.0-0.8); Hematocrit 32.9 VOL% (35.7-47.0); Hemoglobin 10.5 GM/DL (12.0-16.0); Immature Granulocytes % 0.5 %; Immature Granulocytes Absolute 0.05 #; Lymphocytes # 0.5 10*3/uL (1.4-4.0); Lymphocytes % 4.6 % (21.3-54.2); Mean Corpuscular HGB Conc 31.9 GM/DL (32-36); Mean Corpuscular Hemoglobin 29 PG (27-34); Mean Corpuscular Volume 91.6 FL (87-102); Mean Platelet Volume 11.5 FL (9.6-12.0); Monocytes # 0.6 10*3/uL (0.11-0.8); Monocytes % 5.7 % (1.7-12.7); Neutrophils # 8.7 10*3/uL (1.4-7.4); Neutrophils % 89.1 % (38.7-73.9); Platelet Count 187 T/CUMM (130-400); Red Blood Count 3.59 MC/CUMM (3.8-5.5); Red Cell Distribution Width 15.1 % (9.3-17.3); White Blood Count 9.8 T/CUMM (4-12)
[2016-10-28 04:08] LABS: Magnesium 2.4 MG/DL (1.8-2.4); Potassium 4.1 MMOL/L (3.5-5.1)
[2016-10-28 04:22] LABS: Alanine Aminotransferase 270 U/L (13-56); Albumin 2.2 G/DL (3.4-5.0); Alkaline Phosphatase 96 U/L (45-117); Aspartate Amino Transferase 68 U/L (0-37); Bilirubin,Indirect 0.3 MG/DL (0.0-1.0); Bilirubin,Total < 0.39 MG/DL (0.2-1.0); Total Protein 4.8 G/DL (6.4-8.3)
[2016-10-28 04:39] LABS: Lymphocytes 10 % (20-55); Platelet Estimate Normal; Segmented Neutrophils 87 % (50-85); Total Cells Counted 100
[2016-10-28] MEDS: cefTRIAXone 1,000 MG in SODIUM CHLORIDE 0.9% 100 ML IV SCH (07:40)
[2016-10-28 07:45] LABS: ABG Base Excess 5.9 MMOL/L (-2.5-2.5); ABG HCO3 29.7 MMOL/L (20-26); ABG Oxygen Saturation 97.4 % (95-100); ABG PCO2 44.4 MM HG (35-48); ABG PH 7.447 (7.35-7.45); ABG PO2 94.4 MM HG (80-95); ABG TCO2 27.5 MMOL/L (23-27)
--- NOTE | 2016-10-28 07:53 | Hospitalist Progress Note ---
Assessment and Plan (1) Acute respiratory failure Status: Acute Current Visit: Yes Qualifiers: Respiratory failure complication: hypoxia Qualified Code(s): J96.01 - Acute respiratory failure with hypoxia (2) CVA (cerebral vascular accident) Status: Acute Current Visit: Yes (3) Elevated transaminase level Status: Acute Current Visit: Yes (4) Late effects of CVA (cerebrovascular accident) Status: Acute Current Visit: No (5) COPD (chronic obstructive pulmonary disease) Status: Chronic Current Visit: No (6) Chronic pain syndrome Status: Chronic Current Visit: No (7) Hypertension Status: Chronic Assessment and plan: -Patient remains ventilated -Pulmonology may attempt to wean off ventilator today -Continue to monitor blood counts -Liver function tests have improved, continue to monitor -Continue nebulized breathing treatments -Continue IV antibiotics and IV steroids Current Visit: No Hospitalist: Subjective Interval history: The patient is a 61 year old female with acute respiratory failure with hypoxia and acute encephalopathy due to a occipital stroke. The patient remains intubated and sedated today but she is moving her lower extremities. ABGs show some improvement. She may be extubated. Exam - Constitutional Vitals: Period Temp Pulse Resp BP Sys/Martinez Pulse Ox Last 24 Hr 97.8 F-98.9 F 48-68 13-21 136-169/62-85 91-97 General appearance: other (Chronically ill female, intubated and sedated) - Head Head exam: Present: normal inspection - Eye Pupils: Present: XAVIER - ENT ENT exam: Present: normal exam - Respiratory Respiratory exam: Present: other (Coarse breath sounds bilaterally,) - Cardiovascular Cardiovascular exam: Present: regular rate and rhythm - GI/Abdominal GI/Abdominal exam: Present: hypoactive bowel sounds, soft - Extremities Exam Extremities exam: Present: edema - Neurological Exam Neurological exam: Present: other (Intubated and sedated) - Skin Skin exam: Present: normal color Results - Labs CBC & BMP: 10/28/16 03:37 10/28/16 03:37 Lab Results: I have reviewed the past 24 hour labs
--- NOTE | 2016-10-28 08:04 | XRay Report ---
History: Patient on ventilator Date: 10/28/2016 Study: Chest x-ray AP portable Comparison exam: 10/27/2016 The endotracheal and nasogastric tubes are well-positioned. The cardiomediastinal silhouette is unchanged. The pulmonary vasculature is not grossly engorged. There is some patchy and hazy atelectasis/infiltrate in both lung bases. These changes are slightly increased on the left. There is probable mild layering left pleural effusion. There is no pneumothorax. Osseous structures are unchanged. Impression: Continued bibasilar atelectasis/infiltrate with slightly increased parenchymal disease in the left lung base on today's exam PROCEDURE INTERPRETED AT [facility] [place] DEPARTMENT OF RADIOLOGY Final Report Signed by: Dr. Ciarra Michel
[2016-10-28] MEDS: CARVEDILOL 6.25 MG TABLET PO SCH ×2 (08:38→21:20)
[2016-10-28] MEDS: PANTOPRAZOLE 40 MG VIAL IV SCH (08:38)
[2016-10-28] MEDS: LORazepam 2 MG/1 ML VIAL IV PRN ×2 (10:34→21:44)
--- NOTE | 2016-10-28 15:15 | Pulmonology Progress Note ---
Pulmonary - PN: Subj Interval history: Patients ABG looks much better this morning. Patient was placed on SBT, however after about an hour her SpO2 dropped and her BP became elevated. Nursing also reported that she became very agitated when Propfol was turned off. CXR looks a little wet. Will order some lasix. Plan to repeat SBT and sedation break tomorrow morning. Doing much better from a pulmonary standpoint. Will need to see how her neuro status is Exam (Progress Note) - Constitutional Vitals: Period Temp Pulse Resp BP Sys/Martinez Pulse Ox Last 24 Hr 97.8 F-98.9 F 48-75 14-24 144-178/69-99 91-99 General appearance: no acute distress - Head Head exam: Present: normal inspection - Respiratory Respiratory exam: Present: clear to auscultation bilaterally - Cardiovascular Cardiovascular exam: Present: regular rate and rhythm Results - Labs CBC & BMP: 10/28/16 03:37 10/28/16 03:37 Lab Results: I have reviewed the past 24 hour labs Assessment and Plan (1) COPD (chronic obstructive pulmonary disease) Status: Chronic Current Visit: No (2) Acute respiratory failure Status: Acute Assessment and plan: . Current Visit: Yes Qualifiers: Respiratory failure complication: hypoxia Qualified Code(s): J96.01 - Acute respiratory failure with hypoxia
[2016-10-28] MEDS ORDERED: FUROSEMIDE 40 MG/4 ML VIAL IV ONE (15:16)
[2016-10-28] MEDS: LACTATED RINGERS 1,000 ML IV SCH (17:36)
[2016-10-28] MEDS: fentaNYL INJ 1,250 MCG in SODIUM CHLORIDE 0.9% 225 ML IV SCH (21:22)
[2016-10-29] MEDS: ALBUTEROL/IPRATROPIUM 3 ML NEB RESP TX SCH ×4 (00:04→19:51)
[2016-10-29] MEDS: INSULIN REGULAR 100 UNIT/ML SUBCUT SCH ×4 (00:52→18:07)
[2016-10-29] MEDS: methylPREDNISolone SOD SUC 40 MG/1 ML VIAL IV SCH ×3 (00:53→17:07)
[2016-10-29 04:10] LABS: Allen Test Positive; Pt O2 Delivery Device Ventilator
[2016-10-29 04:11] LABS: ABG Base Excess 8.9 MMOL/L (-2.5-2.5); ABG HCO3 32.7 MMOL/L (20-26); ABG PCO2 41.8 MM HG (35-48); ABG PH 7.511 (7.35-7.45); ABG PO2 65.4 MM HG (80-95)
[2016-10-29] MEDS: PROPOFOL 1,000 MG/100 ML BOTTLE IV SCH (04:11)
[2016-10-29] MEDS: LORazepam 2 MG/1 ML VIAL IV PRN ×4 (04:23→18:07)
[2016-10-29 04:59] LABS: Basophils % 0.1 % (0.0-0.8); Hematocrit 35.7 VOL% (35.7-47.0); Hemoglobin 11.7 GM/DL (12.0-16.0); Immature Granulocytes % 1.3 %; Immature Granulocytes Absolute 0.16 #; Lymphocytes # 0.7 10*3/uL (1.4-4.0); Lymphocytes % 5.8 % (21.3-54.2); Mean Corpuscular HGB Conc 32.8 GM/DL (32-36); Mean Corpuscular Hemoglobin 30 PG (27-34); Mean Corpuscular Volume 90.4 FL (87-102); Mean Platelet Volume 11.8 FL (9.6-12.0); Monocytes # 0.6 10*3/uL (0.11-0.8); Monocytes % 4.5 % (1.7-12.7); Neutrophils % 88.3 % (38.7-73.9); Platelet Count 247 T/CUMM (130-400); Red Blood Count 3.95 MC/CUMM (3.8-5.5); Red Cell Distribution Width 14.6 % (9.3-17.3); White Blood Count 12.5 T/CUMM (4-12)
[2016-10-29 05:21] LABS: Magnesium 2.4 MG/DL (1.8-2.4); Phosphorous 4.3 MG/DL (2.5-4.9); Prealbumin 23.2 MG/DL (20-40)
[2016-10-29 05:24] LABS: Calcium 8.1 MG/DL (8.5-10.1); Magnesium 2.3 MG/DL (1.8-2.4); Potassium 4.1 MMOL/L (3.5-5.1)
[2016-10-29] MEDS: cefTRIAXone 1,000 MG in SODIUM CHLORIDE 0.9% 100 ML IV SCH (07:58)
--- NOTE | 2016-10-29 09:21 | Event Note ---
Mrs. osorio actually opens her eyes and nods this morning to my conversation still difficult to make any realistic evaluation of her neurologic status but we can get her off the ventilator then we can start moving toward rehabilitation approach.
--- NOTE | 2016-10-29 09:22 | Event Note ---
Patient awake and following commands. Doing very well on SBT. Will plan to extubate to facemask this morning
[2016-10-29] MEDS: CARVEDILOL 6.25 MG TABLET PO SCH ×2 (09:41→21:59)
[2016-10-29] MEDS: PANTOPRAZOLE 40 MG VIAL IV SCH (09:44)
--- NOTE | 2016-10-29 09:45 | XRay Report ---
Portable chest Date: 10/29/2016 Clinical history: Endotracheal tube, pulmonary edema Comparison: 10/28/2016 Technique: Portable AP sitting chest Findings: The heart is normal in size with persistent diffuse parenchymal findings especially at the lung bases with small pleural effusions. The tip of the endotracheal tube is directed toward the right mainstem bronchus. Nasogastric tube seen entering the stomach. Impression: The tip of the endotracheal tube projects near the level of marnie and is directed toward the right mainstem bronchus. The endotracheal tube could be retracted above this level. Reduced parenchymal findings at the lung bases with smaller pleural effusions. These findings were discussed the patient's nurse at 9:40 AM on 10/29/2016. PROCEDURE INTERPRETED AT [facility] DEPARTMENT OF RADIOLOGY Final Report Signed by: Dr. Michelle Rankin
[2016-10-29] MEDS: hydrALAZINE 20 MG/1 ML VIAL IV PRN ×3 (09:50→23:00)
[2016-10-29] MEDS: LACTATED RINGERS 1,000 ML IV SCH (13:40)
[2016-10-29] MEDS: fentaNYL INJ 1,250 MCG in SODIUM CHLORIDE 0.9% 225 ML IV SCH (14:14)
--- NOTE | 2016-10-29 14:20 | Neurology Progress Note ---
Neurology - PN : Subjective Interval history: Patient is extubated this morning. She is alert and awake however confused. She has left homonymous hemianopsia. 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 Exam (Progress Note) - Constitutional Vitals: Period Temp Pulse Resp BP Sys/Martinez Pulse Ox Last 24 Hr 97.6 F-98.4 F 54-85 14-28 119-196/61-112 90-96 Exam: GENERAL: Patient is in no acute distress. NECK: Neck is supple. There is no JVD. No carotid bruits present. No thyroid masses. CVS: First and second heart sounds are normal. There is no S3 present. Regular rate and rhythm. RESPIRATORY: Lungs are clear to auscultation without any rales or rhonchi. ABDOMEN: Soft and non-tender. Bowel sounds are present. There is no hepatosplenomegaly. EXT: There is no palpable edema. Peripheral pulses are present. Skin: No rashes Central Nervous system: General: Alert, awake however disoriented Speech: Fluent Comprehension: Fair Facial expressions: Normal Cranial Nerves: CN1/Olfactory: Normal CN II/ Optic: Normal, Visual Lozano: Left homonymous hemianopsia CN III, and : XAVIER & EOMI CN V: Normal & intact CN VII: face is symmetric CNVIII: Normal CN XI/X/XI/XII: Intact and Normal Motor: Bulk and Tone is normal. Strength cannot be assessed however moving all 4 extremities Sensory: Unreliable Reflexes: 1+ and symmetrical Cerebellar function: Cannot be assessed Toes: Equivocal Gait: Cannot be assessed Results - Labs CBC & BMP: 10/29/16 04:08 10/29/16 04:08 Assessment and Plan (1) CVA (cerebral vascular accident) Status: Acute Assessment and plan: We will put her on Plavix 75 mg p.o. daily Continue current supportive management for now. We will start therapy soon. Current Visit: Yes
--- NOTE | 2016-10-29 15:01 | Hospitalist Progress Note ---
Assessment and Plan (1) Late effects of CVA (cerebrovascular accident) Status: Acute Assessment and plan: The patient has a history of posterior cerebral artery infarction. She has left homonymous hemianopsia. We are continuing present supportive care and per Dr. Monique Mccall's recommendations. The patient is now more alert than before. Current Visit: No (2) Acute respiratory failure Status: Acute Current Visit: Yes Qualifiers: Respiratory failure complication: hypoxia Qualified Code(s): J96.01 - Acute respiratory failure with hypoxia Hospitalist: Subjective Interval history: The patient has been extubated and is interactive. The patient is confused as to her location and is having some anxiety concerning her surroundings. The patient feels unsafe. Exam - Constitutional Vitals: Period Temp Pulse Resp BP Sys/Martinez Pulse Ox Last 24 Hr 97.6 F-98.4 F 54-85 14-28 119-196/61-112 90-96 - Respiratory Respiratory exam: Present: clear to auscultation bilaterally - Cardiovascular Cardiovascular exam: Present: regular rate and rhythm - GI/Abdominal GI/Abdominal exam: Present: normal bowel sounds Results - Labs CBC & BMP: 10/29/16 04:08 10/29/16 04:08 Lab Results: I have reviewed the past 24 hour labs
[2016-10-29] MEDS: VANCOMYCIN INJ 1,000 MG in SODIUM CHLORIDE 0.9% 250 ML IV SCH (15:55)
[2016-10-29] MEDS: CEFEPIME 1,000 MG in SODIUM CHLORIDE 0.9% 100 ML IV SCH (16:15)
[2016-10-30] MEDS: INSULIN REGULAR 100 UNIT/ML SUBCUT SCH ×4 (00:17→18:04)
[2016-10-30] MEDS: ALBUTEROL/IPRATROPIUM 3 ML NEB RESP TX SCH ×4 (01:19→19:40)
[2016-10-30] MEDS: methylPREDNISolone SOD SUC 40 MG/1 ML VIAL IV SCH ×4 (01:25→20:41)
[2016-10-30] MEDS: VANCOMYCIN INJ 1,000 MG in SODIUM CHLORIDE 0.9% 250 ML IV SCH ×2 (03:30→16:42)
[2016-10-30] MEDS: CEFEPIME 1,000 MG in SODIUM CHLORIDE 0.9% 100 ML IV SCH ×2 (04:50→16:43)
[2016-10-30] MEDS: PANTOPRAZOLE 40 MG VIAL IV SCH (08:47)
[2016-10-30] MEDS: LORazepam 2 MG/1 ML VIAL IV PRN ×3 (08:47→18:35)
[2016-10-30] MEDS: CARVEDILOL 6.25 MG TABLET PO SCH ×2 (08:48→20:41)
[2016-10-30] MEDS: CLOPIDOGREL 75 MG TABLET PO SCH (08:48)
[2016-10-30] MEDS: LACTATED RINGERS 1,000 ML IV SCH ×2 (08:57→12:01)
--- NOTE | 2016-10-30 09:02 | Hospitalist Progress Note ---
Assessment and Plan (1) Late effects of CVA (cerebrovascular accident) Status: Acute Assessment and plan: The patient has a history of posterior cerebral artery infarction. She has left homonymous hemianopsia. We are continuing present supportive care and per Dr. Monique Mccall's recommendations. The patient is now on Plavix. We will continue with speech therapy. I expect to begin physical and occupational therapy soon. I anticipate that the patient will be ready for transfer to the floor tomorrow. Current Visit: No (2) Acute respiratory failure Status: Acute Current Visit: Yes Qualifiers: Respiratory failure complication: hypoxia Qualified Code(s): J96.01 - Acute respiratory failure with hypoxia Hospitalist: Subjective Interval history: The patient is awake and alert this morning. She has less confused than she was yesterday. She is oriented to person and place. The patient seems less anxious than she was yesterday. The patient does not complain of shortness of breath. The patient is tolerating tube feedings through nasogastric tube Exam - Constitutional Vitals: Period Temp Pulse Resp BP Sys/Martinez Pulse Ox Last 24 Hr 98.2 F-99.3 F 63-99 16-35 151-190/77-99 89-99 Exam: Constitutional System: Minimal distress. No tremulousness. Head: Normocephalic, atraumatic. Ears, Nose and Throat System: No evidence of Otitis or Mastoiditis. No epistaxis or discharge. Nasogastric tube functional Eyes System: Pupils equal, round, and reactive. Extraocular muscles intact. The patient has left hemianopsia Neck: Supple, without adenopathy, No jugular venous distention. No thyromegaly , neck mass, or prior surgery apparent. Respiratory System: Chest clear to auscultation. Cardiovascular System: Heart with regular rate and rhythm. No murmur. GI System: Abdomen soft, nontender. Normo active bowel sounds present. Musculoskeletal System: limbs with no pedal edema. Full distal pulses. Limb restraints were required to protect safety of medical equipment Results - Labs CBC & BMP: 10/29/16 04:08 10/29/16 04:08 Lab Results: I have reviewed the past 24 hour labs
--- NOTE | 2016-10-30 09:28 | Pulmonology Progress Note ---
Pulmonary - PN: Subj Interval history: This 61-year-old lady has COPD and rheumatoid arthritis. He had a right carotid endarterectomy. Apparently she has had a stroke. She was extubated and is now breathing fairly well on her own although she is still requiring a good bit of oxygen. Exam (Progress Note) - Constitutional Vitals: Period Temp Pulse Resp BP Sys/Martinez Pulse Ox Last 24 Hr 96.4 F-99.3 F 63-99 16-35 151-190/77-99 89-99 Exam: Patient responds. Vital signs normal. Pupils are reactive. Throat clear. Neck supple no bruits. Chest shows a few scattered rhonchi. Heart normal rate and rhythm no murmurs. Abdomen soft no masses. Extremities no clubbing cyanosis edema. Results - Labs CBC & BMP: 10/29/16 04:08 10/29/16 04:08 Lab Results: I have reviewed the past 24 hour labs Assessment and Plan (1) Pneumonia Status: Acute Assessment and plan: She has grown out MRSA E. coli and Pseudomonas from bronchial washings. She is on vancomycin and Cefobid which should cover those. Continuing antibiotics. Current Visit: Yes (2) Acute respiratory failure Status: Acute Assessment and plan: Still requiring a good bit of oxygen. Will try to change her to nasal oxygen. Current Visit: Yes Qualifiers: Respiratory failure complication: hypoxia Qualified Code(s): J96.01 - Acute respiratory failure with hypoxia (3) CVA (cerebral vascular accident) Status: Acute Assessment and plan: Defer to neurology. Current Visit: Yes (4) COPD (chronic obstructive pulmonary disease) Status: Chronic Assessment and plan: Continuing bronchodilators and antibiotics. Current Visit: No
[2016-10-30] MEDS: fentaNYL 50 MCG/HR PATCH TRANSDERM SCH (10:45)
[2016-10-30 11:47] LABS: ABG Base Excess 6.9 MMOL/L (-2.5-2.5); ABG HCO3 29.8 MMOL/L (20-26); ABG Oxygen Saturation 94.8 % (95-100); ABG PCO2 36.2 MM HG (35-48); ABG PH 7.533 (7.35-7.45); ABG PO2 70.8 MM HG (80-95); ABG TCO2 30.9 MMOL/L (23-27)
[2016-10-30] MEDS: hydrALAZINE 20 MG/1 ML VIAL IV PRN ×2 (12:16→18:12)
--- NOTE | 2016-10-30 14:04 | Neurology Progress Note ---
Neurology - PN : Subjective Interval history: Patient seems to be doing better. Much more alert and awake. Less confused. Following commands. Moving all 4 extremities. Exam (Progress Note) - Constitutional Vitals: Period Temp Pulse Resp BP Sys/Martinez Pulse Ox Last 24 Hr 96.4 F-99.3 F 63-99 16-30 151-190/77-99 89-99 Exam: GENERAL: Patient is in no acute distress. NECK: Neck is supple. There is no JVD. No carotid bruits present. No thyroid masses. CVS: First and second heart sounds are normal. There is no S3 present. Regular rate and rhythm. RESPIRATORY: Lungs are clear to auscultation without any rales or rhonchi. ABDOMEN: Soft and non-tender. Bowel sounds are present. There is no hepatosplenomegaly. EXT: There is no palpable edema. Peripheral pulses are present. Skin: No rashes Central Nervous system: General: Alert, awake however disoriented Speech: Fluent Comprehension: Fair Facial expressions: Normal Cranial Nerves: CN1/Olfactory: Normal CN II/ Optic: Normal, Visual Lozano: Left homonymous hemianopsia CN III, and : XAVIER & EOMI CN V: Normal & intact CN VII: face is symmetric CNVIII: Normal CN XI/X/XI/XII: Intact and Normal Motor: Bulk and Tone is normal. Strength cannot be assessed however moving all 4 extremities Sensory: Unreliable Reflexes: 1+ and symmetrical Cerebellar function: Cannot be assessed Toes: Equivocal Gait: Cannot be assessed Results - Labs CBC & BMP: 10/29/16 04:08 10/29/16 04:08 Assessment and Plan (1) CVA (cerebral vascular accident) Status: Acute Assessment and plan: Continue Plavix Okay to go to the floor from neuro standpoint Continue PT OT and ST to Current Visit: Yes
[2016-10-31] MEDS: INSULIN REGULAR 100 UNIT/ML SUBCUT SCH ×2 (00:28→06:08)
[2016-10-31] MEDS: hydrALAZINE 20 MG/1 ML VIAL IV PRN (00:43)
[2016-10-31] MEDS: LORazepam 2 MG/1 ML VIAL IV PRN (00:43)
[2016-10-31] MEDS: ALBUTEROL/IPRATROPIUM 3 ML NEB RESP TX SCH ×4 (01:32→20:45)
[2016-10-31 02:47] LABS: ABG HCO3 31.9 MMOL/L (20-26); ABG Oxygen Saturation 92.6 % (95-100); ABG PCO2 41.4 MM HG (35-48); ABG PH 7.504 (7.35-7.45); ABG PO2 65.3 MM HG (80-95); ABG TCO2 33.1 MMOL/L (23-27); Allen Test Positive
[2016-10-31] MEDS: VANCOMYCIN INJ 1,000 MG in SODIUM CHLORIDE 0.9% 250 ML IV SCH ×2 (03:04→16:00)
[2016-10-31 04:28] LABS: Basophils % 0.1 % (0.0-0.8); Hematocrit 40.2 VOL% (35.7-47.0); Hemoglobin 13.3 GM/DL (12.0-16.0); Immature Granulocytes % 2.3 %; Immature Granulocytes Absolute 0.37 #; Lymphocytes # 1.1 10*3/uL (1.4-4.0); Lymphocytes % 6.4 % (21.3-54.2); Mean Corpuscular HGB Conc 33.1 GM/DL (32-36); Mean Corpuscular Hemoglobin 29 PG (27-34); Mean Corpuscular Volume 88.5 FL (87-102); Mean Platelet Volume 10.4 FL (9.6-12.0); Monocytes # 0.8 10*3/uL (0.11-0.8); Monocytes % 4.6 % (1.7-12.7); Neutrophils # 14.1 10*3/uL (1.4-7.4); Neutrophils % 86.6 % (38.7-73.9); Platelet Count 366 T/CUMM (130-400); Red Blood Count 4.54 MC/CUMM (3.8-5.5); White Blood Count 16.3 T/CUMM (4-12)
[2016-10-31] MEDS: CEFEPIME 1,000 MG in SODIUM CHLORIDE 0.9% 100 ML IV SCH ×2 (04:50→17:41)
[2016-10-31 04:58] LABS: Calcium 8.2 MG/DL (8.5-10.1); Magnesium 2.4 MG/DL (1.8-2.4); Osmolality,Calculated 286.1 MOS/KG (273-304); Potassium 4.3 MMOL/L (3.5-5.1)
[2016-10-31] MEDS: LACTATED RINGERS 1,000 ML IV SCH ×2 (06:08→09:04)
--- NOTE | 2016-10-31 06:42 | Pulmonology Progress Note ---
Pulmonary - PN: Subj Interval history: This 61-year-old lady has COPD and rheumatoid arthritis. He had a right carotid endarterectomy. Apparently she has had a stroke. She was extubated and is now breathing fairly well on her own although she is still requiring a good bit of oxygen. 10/31/2016 patient seems more alert this morning. She is asking me if she can get up and walk. Probably ready to go to the floor. O2 sat acceptable on nasal oxygen. She does have some metabolic alkalosis. Bump with Diamox. Exam (Progress Note) - Constitutional Vitals: Period Temp Pulse Resp BP Sys/Martinez Pulse Ox Last 24 Hr 96.4 F-98.6 F 75-103 16-24 137-186/65-99 91-100 Exam: Patient responds. Asking questions and more oriented this morning. Vital signs normal. Pupils are reactive. Throat clear. Neck supple no bruits. Chest shows a few scattered rhonchi. Heart normal rate and rhythm no murmurs. Abdomen soft no masses. Extremities no clubbing cyanosis edema. Results - Labs CBC & BMP: 10/31/16 04:12 10/31/16 04:12 Lab Results: I have reviewed the past 24 hour labs Assessment and Plan (1) Pneumonia Status: Acute Assessment and plan: She has grown out MRSA E. coli and Pseudomonas from bronchial washings. She is on vancomycin and Cefobid which should cover those. Continuing antibiotics. 10/31/2016 continuing antibiotics. Watch renal function. Current Visit: Yes (2) Acute respiratory failure Status: Acute Assessment and plan: Still requiring a good bit of oxygen. Will try to change her to nasal oxygen. 10/31/2016 ABGs acceptable nasal oxygen. Current Visit: Yes Qualifiers: Respiratory failure complication: hypoxia Qualified Code(s): J96.01 - Acute respiratory failure with hypoxia (3) CVA (cerebral vascular accident) Status: Acute Assessment and plan: Defer to neurology. 10/31/2016 patient is more alert and oriented this morning. Asking to get up and walk. Current Visit: Yes (4) COPD (chronic obstructive pulmonary disease) Status: Chronic Assessment and plan: Continuing bronchodilators and antibiotics. 10/31/2016 no active bronchospasm. Current Visit: No
--- NOTE | 2016-10-31 08:20 | Hospitalist Progress Note ---
Assessment and Plan (1) Late effects of CVA (cerebrovascular accident) Status: Acute Assessment and plan: The patient has a history of posterior cerebral artery infarction. She has left homonymous hemianopsia. We are continuing present supportive care and per Dr. Monique Mccall's recommendations. The patient is now on Plavix. We will continue with speech therapy. the patient will be transferred to the floor and will start physical and occupational therapy. Current Visit: No (2) Acute respiratory failure Status: Acute Current Visit: Yes Qualifiers: Respiratory failure complication: hypoxia Qualified Code(s): J96.01 - Acute respiratory failure with hypoxia Hospitalist: Subjective Interval history: The patient was admitted to the hospital with altered mental status and shortness of breath due to COPD. The patient has history of right carotid endarterectomy. The patient was found to have stroke which is likely the cause of the patient's altered mental status. Dr. Monique Mccall recommended Plavix and aspirin. The patient's altered mental status is improving daily. Shortness of breath is better, and the patient has been off the ventilator for 48 hours. The patient is ready for transfer to the floor with continued rehabilitation, attention to swallowing, and progressive tapering of COPD medications. Exam - Constitutional Vitals: Period Temp Pulse Resp BP Sys/Martinez Pulse Ox Last 24 Hr 96.7 F-98.6 F 75-103 16-24 137-186/65-96 91-100 Exam: Constitutional System: No distress. No tremulousness. Head: Normocephalic, atraumatic. Ears, Nose and Throat System: No evidence of Otitis or Mastoiditis. No epistaxis or discharge. Nasogastric tube now removed and patient swallowing well Eyes System: Pupils equal, round, and reactive. Extraocular muscles intact. The patient has left hemianopsia Neck: Supple, without adenopathy, No jugular venous distention. No thyromegaly , neck mass, or prior surgery apparent. Respiratory System: Chest clear to auscultation. Cardiovascular System: Heart with regular rate and rhythm. No murmur. GI System: Abdomen soft, nontender. Normo active bowel sounds present. Musculoskeletal System: limbs with no pedal edema. Full distal pulses. Results - Labs CBC & BMP: 10/31/16 04:12 10/31/16 04:12 Lab Results: I have reviewed the past 24 hour labs
[2016-10-31] MEDS: methylPREDNISolone SOD SUC 40 MG/1 ML VIAL IV SCH ×2 (09:05→20:38)
[2016-10-31] MEDS: CARVEDILOL 6.25 MG TABLET PO SCH ×2 (09:05→20:38)
[2016-10-31] MEDS: CLOPIDOGREL 75 MG TABLET PO SCH (09:05)
[2016-10-31] MEDS: PANTOPRAZOLE 40 MG VIAL IV SCH (09:06)
[2016-10-31] MEDS ORDERED: DEXTROSE 50% 25 GM/50 ML VIAL IV PRN (11:23)
[2016-10-31] MEDS ORDERED: GLUCAGON 1 MG VIAL IM PRN (11:23)
[2016-10-31] MEDS: PANTOPRAZOLE 40 MG TABLET PO SCH (11:29)
[2016-10-31] MEDS: ASPIRIN EC 81 MG TABLET PO SCH (12:01)
[2016-10-31] MEDS: NICOTINE 14 MG/24 HR PATCH TRANSDERM SCH (12:01)
[2016-10-31] MEDS: ROSUVASTATIN 10 MG TABLET PO SCH (12:01)
[2016-10-31] MEDS: INSULIN LISPRO 100 UNIT/ML SUBCUT SCH ×3 (13:36→20:46)
[2016-11-01] MEDS: ALBUTEROL/IPRATROPIUM 3 ML NEB RESP TX SCH ×4 (00:10→19:26)
[2016-11-01] MEDS: VANCOMYCIN INJ 1,000 MG in SODIUM CHLORIDE 0.9% 250 ML IV SCH ×3 (00:40→21:04)
[2016-11-01 04:35] LABS: Basophils % 0.1 % (0.0-0.8); Hematocrit 39.9 VOL% (35.7-47.0); Hemoglobin 12.7 GM/DL (12.0-16.0); Immature Granulocytes % 1.4 %; Immature Granulocytes Absolute 0.18 #; Lymphocytes # 0.8 10*3/uL (1.4-4.0); Lymphocytes % 6.3 % (21.3-54.2); Mean Corpuscular HGB Conc 31.8 GM/DL (32-36); Mean Corpuscular Hemoglobin 29 PG (27-34); Mean Corpuscular Volume 91.1 FL (87-102); Mean Platelet Volume 10.4 FL (9.6-12.0); Monocytes # 0.5 10*3/uL (0.11-0.8); Neutrophils # 11.6 10*3/uL (1.4-7.4); Neutrophils % 88.2 % (38.7-73.9); Platelet Count 371 T/CUMM (130-400); Red Blood Count 4.38 MC/CUMM (3.8-5.5); Red Cell Distribution Width 14.8 % (9.3-17.3); White Blood Count 13.1 T/CUMM (4-12)
[2016-11-01 05:06] LABS: Calcium 8.5 MG/DL (8.5-10.1); Magnesium 2.4 MG/DL (1.8-2.4); Osmolality,Calculated 283.3 MOS/KG (273-304); Potassium 4.3 MMOL/L (3.5-5.1)
[2016-11-01] MEDS: CEFEPIME 1,000 MG in SODIUM CHLORIDE 0.9% 100 ML IV SCH ×2 (05:59→17:56)
--- NOTE | 2016-11-01 06:52 | XRay Report ---
XR chest 1V portable Indication: Pneumonia Comparison: Chest x-ray 10/29/2016 Technique: Portable AP chest was performed. Findings: Some improvement in visualization of the left hemidiaphragm is suggested. Bilaterally within the lung bases, more prevalent on the left, there are scattered airspace opacities. Some improvement in aeration of the left lower lobe is suggested. Upper lungs are clear. Bones and soft tissues are unremarkable. Impression: 1. Minimal improvement in aeration of the left lung base is noted. Bibasilar parenchymal opacities remain present more prevalent on the left. This may in part reflect atelectatic change. 11/01/2016 6:48 AM PROCEDURE INTERPRETED AT [facility] DEPARTMENT OF RADIOLOGY Final Report Signed by: Dr. Abdi Mariscal
[2016-11-01] MEDS: CARVEDILOL 6.25 MG TABLET PO SCH ×2 (09:18→21:03)
[2016-11-01] MEDS: CLOPIDOGREL 75 MG TABLET PO SCH (09:18)
[2016-11-01] MEDS: ASPIRIN EC 81 MG TABLET PO SCH (09:18)
[2016-11-01] MEDS: PANTOPRAZOLE 40 MG TABLET PO SCH (09:18)
[2016-11-01] MEDS: methylPREDNISolone SOD SUC 40 MG/1 ML VIAL IV SCH (09:18)
[2016-11-01] MEDS: NICOTINE 14 MG/24 HR PATCH TRANSDERM SCH (09:18)
[2016-11-01] MEDS: ROSUVASTATIN 10 MG TABLET PO SCH (09:19)
--- NOTE | 2016-11-01 10:14 | Pulmonology Progress Note ---
Pulmonary - PN: Subj Interval history: This 61-year-old lady has COPD and rheumatoid arthritis. He had a right carotid endarterectomy. Apparently she has had a stroke. She was extubated and is now breathing fairly well on her own although she is still requiring a good bit of oxygen. 10/31/2016 patient seems more alert this morning. She is asking me if she can get up and walk. Probably ready to go to the floor. O2 sat acceptable on nasal oxygen. She does have some metabolic alkalosis. Bump with Diamox. [id number] lady was moved to the floor today. She needs more physical therapy. She has severe COPD with ventilatory insufficiency. Requiring low flow oxygen. Feels better this morning. Exam (Progress Note) - Constitutional Vitals: Period Temp Pulse Resp BP Sys/Martinez Pulse Ox Last 24 Hr 98.1 F-100.3 F 73-100 18-20 120-168/63-88 89-98 Exam: Patient responds. Asking questions and more oriented this morning. Vital signs normal. Pupils are reactive. Throat clear. Neck supple no bruits. Chest shows a few scattered rhonchi. Heart normal rate and rhythm no murmurs. Abdomen soft no masses. Extremities no clubbing cyanosis edema. Little change from yesterday. Results - Labs CBC & BMP: 11/01/16 03:49 11/01/16 03:49 Lab Results: I have reviewed the past 24 hour labs - Diagnostic Findings Procedure: Chest x-ray: image reviewed by me (Still has some interstitial edema in the bases. Little change from before.) Assessment and Plan (1) Pneumonia Status: Acute Assessment and plan: She has grown out MRSA E. coli and Pseudomonas from bronchial washings. She is on vancomycin and Cefobid which should cover those. Continuing antibiotics. 10/31/2016 continuing antibiotics. Watch renal function. 11/01/2016 still has some bronchopneumonia radiographically versus interstitial edema. Needs IV antibiotics a few more days. Current Visit: Yes (2) Acute respiratory failure Status: Acute Assessment and plan: Still requiring a good bit of oxygen. Will try to change her to nasal oxygen. 10/31/2016 ABGs acceptable nasal oxygen. 11/01/2016 still requiring oxygen. Out of respiratory failure. Current Visit: Yes Qualifiers: Respiratory failure complication: hypoxia Qualified Code(s): J96.01 - Acute respiratory failure with hypoxia (3) CVA (cerebral vascular accident) Status: Acute Assessment and plan: Defer to neurology. 10/31/2016 patient is more alert and oriented this morning. Asking to get up and walk. 11/01/2016 need more physical therapy. Current Visit: Yes (4) COPD (chronic obstructive pulmonary disease) Status: Chronic Assessment and plan: Continuing bronchodilators and antibiotics. 10/31/2016 no active bronchospasm. 11/01/2016 continuing bronchodilators. Current Visit: No
[2016-11-01] MEDS: INSULIN LISPRO 100 UNIT/ML SUBCUT SCH ×4 (11:02→21:50)
--- NOTE | 2016-11-01 12:28 | Hospitalist Progress Note ---
Assessment and Plan (1) Late effects of CVA (cerebrovascular accident) Status: Acute Current Visit: No (2) Acute respiratory failure Status: Acute Current Visit: Yes Qualifiers: Respiratory failure complication: hypoxia Qualified Code(s): J96.01 - Acute respiratory failure with hypoxia (3) CVA (cerebral vascular accident) Status: Acute Assessment and plan: Patient is currently on Plavix and aspirin. Seems to be doing well. Patient will need a few more days of IV antibiotics per Dr. Darby. Patient's been accepted at [facility]. She will continue her convalescence once approved by Dr. Darby and is eligible for discharge Current Visit: Yes Hospitalist: Subjective Interval history: Patient seems to be doing well on the floor. She is interested in going to swing bed upon discharge at [facility]. Exam - Constitutional Vitals: Period Temp Pulse Resp BP Sys/Martinez Pulse Ox Last 24 Hr 98.1 F-100.3 F 78-100 18-20 120-168/63-88 89-98 General appearance: normal weight - Head Head exam: Present: normal inspection - Eye Eye exam: Present: EOMI Pupils: Present: XAVIER - ENT ENT exam: Present: normal exam - Neck Neck exam: Present: normal inspection - Respiratory Respiratory exam: Present: rhonchi (Scattered) - Cardiovascular Cardiovascular exam: Present: regular rate and rhythm - GI/Abdominal GI/Abdominal exam: Present: normal bowel sounds - Extremities Exam Extremities exam: Present: normal inspection - Back Exam Back exam: Present: normal inspection - Neurological Exam Neurological exam: Present: alert - Psychiatric Psychiatric exam: Present: normal affect - Skin Skin exam: Present: normal color Results - Labs CBC & BMP: 11/01/16 03:49 11/01/16 03:49
[2016-11-01] MEDS ORDERED: SODIUM CHLORIDE 0.9% 250 ML IV ONE (20:08)
[2016-11-01 22:35] LABS: Apearance,Urine CLEAR (Clear); Bilirubin,Urine Negative (Negative); Blood, Urine Small mg/dL (Negative); Glucose,Urine (UA) Negative (Negative); Ketones,Urine Negative (Negative); Nitrite,Urine Negative (Negative); Protein,Urine Negative; RBC,Urine 1 /HPF (0-4); Renal Epithelial Cells,Urine Occasional /HPF (<1); Squamous Epithelial Cell,Urine Occasional /HPF (0-10); Urine Color Colorless (Yellow); Urine Specific Gravity 1.003 (1.001-1.035); Urine Urobilinogen < 2.0 EU/DL (0.2-1.0); WBC,Urine 2 /HPF (0-6)
[2016-11-02] MEDS: ALBUTEROL/IPRATROPIUM 3 ML NEB RESP TX SCH ×4 (00:01→19:26)
[2016-11-02] MEDS: CEFEPIME 1,000 MG in SODIUM CHLORIDE 0.9% 100 ML IV SCH ×2 (03:50→16:12)
[2016-11-02] MEDS: VANCOMYCIN INJ 1,000 MG in SODIUM CHLORIDE 0.9% 250 ML IV SCH ×3 (05:09→18:06)
[2016-11-02] MEDS: INSULIN LISPRO 100 UNIT/ML SUBCUT SCH ×4 (08:39→20:37)
[2016-11-02] MEDS: fentaNYL 50 MCG/HR PATCH TRANSDERM SCH (08:41)
[2016-11-02] MEDS: CLOPIDOGREL 75 MG TABLET PO SCH (08:42)
[2016-11-02] MEDS: PANTOPRAZOLE 40 MG TABLET PO SCH (08:42)
[2016-11-02] MEDS: ROSUVASTATIN 10 MG TABLET PO SCH (08:42)
[2016-11-02] MEDS: CARVEDILOL 6.25 MG TABLET PO SCH ×2 (08:43→20:37)
[2016-11-02] MEDS: methylPREDNISolone SOD SUC 40 MG/1 ML VIAL IV SCH (08:43)
[2016-11-02] MEDS: ASPIRIN EC 81 MG TABLET PO SCH (08:43)
[2016-11-02] MEDS: NICOTINE 14 MG/24 HR PATCH TRANSDERM SCH (08:46)
--- NOTE | 2016-11-02 09:34 | Event Note ---
Ms. osorio is now extubated awake alert up and about appears to be at the neurologic baseline that she had achieved immediately after her carotid endarterectomy. I am suspicious that this may have been a very perfusion injury in the area of the previous stroke as it does not appear to be any new residual from the cerebrovascular accident she had prior to the carotid endarterectomy. Her neck is healing well and she can transfer to the swing bed and continue rehab as is appropriate. I have an appointment to see her in approximately 3 months for follow-up as routinely do with carotid ultrasound
--- NOTE | 2016-11-02 10:40 | Pulmonology Progress Note ---
Pulmonary - PN: Subj Interval history: This 61-year-old lady has COPD and rheumatoid arthritis. He had a right carotid endarterectomy. Apparently she has had a stroke. She was extubated and is now breathing fairly well on her own although she is still requiring a good bit of oxygen. 10/31/2016 patient seems more alert this morning. She is asking me if she can get up and walk. Probably ready to go to the floor. O2 sat acceptable on nasal oxygen. She does have some metabolic alkalosis. Bump with Diamox. 11/[id number] lady was moved to the floor today. She needs more physical therapy. She has severe COPD with ventilatory insufficiency. Requiring low flow oxygen. Feels better this morning. 11/02/16 seems to be doing better. Continue nasal oxygen. Could go to swing bed any time. Exam (Progress Note) - Constitutional Vitals: Period Temp Pulse Resp BP Sys/Martinez Pulse Ox Last 24 Hr 98.0 F-100.5 F 69-96 16-20 146-169/74-92 90-98 Exam: Patient responds. Asking questions and more oriented this morning. Vital signs normal. Pupils are reactive. Throat clear. Neck supple no bruits. Chest shows a few scattered rhonchi. Heart normal rate and rhythm no murmurs. Abdomen soft no masses. Extremities no clubbing cyanosis edema. Little change from yesterday. Results - Labs CBC & BMP: 11/01/16 03:49 11/01/16 03:49 Lab Results: I have reviewed the past 24 hour labs Assessment and Plan (1) Pneumonia Status: Acute Assessment and plan: She has grown out MRSA E. coli and Pseudomonas from bronchial washings. She is on vancomycin and Cefobid which should cover those. Continuing antibiotics. 10/31/2016 continuing antibiotics. Watch renal function. 11/01/2016 still has some bronchopneumonia radiographically versus interstitial edema. Needs IV antibiotics a few more days. 11/02/16 x-ray has shown improvement. Likely would take another 4-6 weeks for x- ray to clear. Okay with me to be discharged on oral antibiotics. Bactrim and Levaquin would probably suffice. Needs another 5 days or so orally. Current Visit: Yes (2) Acute respiratory failure Status: Acute Assessment and plan: Still requiring a good bit of oxygen. Will try to change her to nasal oxygen. 10/31/2016 ABGs acceptable nasal oxygen. 11/01/2016 still requiring oxygen. Out of respiratory failure. 11/02/16 keep on nasal oxygen otherwise out of respiratory failure. Current Visit: Yes Qualifiers: Respiratory failure complication: hypoxia Qualified Code(s): J96.01 - Acute respiratory failure with hypoxia (3) CVA (cerebral vascular accident) Status: Acute Assessment and plan: Defer to neurology. 10/31/2016 patient is more alert and oriented this morning. Asking to get up and walk. 11/01/2016 need more physical therapy. Current Visit: Yes (4) COPD (chronic obstructive pulmonary disease) Status: Chronic Assessment and plan: Continuing bronchodilators and antibiotics. 10/31/2016 no active bronchospasm. 11/01/2016 continuing bronchodilators. 11/02/16 continue bronchodilators. Current Visit: No
--- NOTE | 2016-11-02 17:04 | Hospitalist Progress Note ---
Assessment and Plan (1) COPD (chronic obstructive pulmonary disease) Status: Chronic Assessment and plan: Continue with neb treatments. Current Visit: No (2) CVA (cerebral vascular accident) Status: Acute Current Visit: Yes (3) Pneumonia Status: Chronic Assessment and plan: Broad-spectrum antibiotics. Current Visit: Yes Hospitalist: Subjective Interval history: Patient sitting up in her chair resting. She voices no complaints. She has been afebrile. Continue with antibiotics for this patient. Exam - Constitutional Vitals: Period Temp Pulse Resp BP Sys/Martinez Pulse Ox Last 24 Hr 98.0 F-100.5 F 66-98 16-20 127-169/63-92 90-98 General appearance: normal weight - Head Head exam: Present: normal inspection - Eye Eye exam: Present: EOMI - Neck Neck exam: Present: normal inspection - Respiratory Respiratory exam: Present: clear to auscultation bilaterally - Cardiovascular Cardiovascular exam: Present: regular rate and rhythm - GI/Abdominal GI/Abdominal exam: Present: normal bowel sounds - Extremities Exam Extremities exam: Present: normal inspection - Neurological Exam Neurological exam: Present: alert - Psychiatric Psychiatric exam: Present: normal affect, normal mood - Skin Skin exam: Present: normal color, dry Results - Labs CBC & BMP: 11/01/16 03:49 11/01/16 03:49
[2016-11-03] MEDS: ALBUTEROL/IPRATROPIUM 3 ML NEB RESP TX SCH ×4 (00:04→20:57)
[2016-11-03] MEDS: CEFEPIME 1,000 MG in SODIUM CHLORIDE 0.9% 100 ML IV SCH ×3 (03:44→15:39)
[2016-11-03] MEDS: VANCOMYCIN INJ 1,000 MG in SODIUM CHLORIDE 0.9% 250 ML IV SCH ×2 (06:01→16:55)
[2016-11-03 06:35] LABS: Eosinophils # 0.1 10*3/uL (0.0-0.87); Eosinophils % 0.6 % (0.00-10.9); Hematocrit 35.1 VOL% (35.7-47.0); Hemoglobin 11.4 GM/DL (12.0-16.0); Immature Granulocytes % 0.8 %; Immature Granulocytes Absolute 0.07 #; Lymphocytes # 2.2 10*3/uL (1.4-4.0); Lymphocytes % 23.7 % (21.3-54.2); Mean Corpuscular HGB Conc 32.5 GM/DL (32-36); Mean Corpuscular Hemoglobin 29 PG (27-34); Mean Corpuscular Volume 89.8 FL (87-102); Mean Platelet Volume 10.4 FL (9.6-12.0); Monocytes # 0.8 10*3/uL (0.11-0.8); Monocytes % 8.1 % (1.7-12.7); Neutrophils # 6.2 10*3/uL (1.4-7.4); Neutrophils % 66.8 % (38.7-73.9); Platelet Count 323 T/CUMM (130-400); Red Blood Count 3.91 MC/CUMM (3.8-5.5); Red Cell Distribution Width 14.6 % (9.3-17.3); White Blood Count 9.3 T/CUMM (4-12)
[2016-11-03 06:51] LABS: Osmolality,Calculated 284.1 MOS/KG (273-304); Potassium 4.1 MMOL/L (3.5-5.1)
[2016-11-03] MEDS: INSULIN LISPRO 100 UNIT/ML SUBCUT SCH ×4 (09:20→21:20)
[2016-11-03] MEDS: methylPREDNISolone SOD SUC 40 MG/1 ML VIAL IV SCH (09:24)
[2016-11-03] MEDS: CARVEDILOL 6.25 MG TABLET PO SCH ×2 (09:24→20:06)
[2016-11-03] MEDS: ASPIRIN EC 81 MG TABLET PO SCH (09:24)
[2016-11-03] MEDS: ROSUVASTATIN 10 MG TABLET PO SCH (09:24)
[2016-11-03] MEDS: PANTOPRAZOLE 40 MG TABLET PO SCH (09:24)
[2016-11-03] MEDS: CLOPIDOGREL 75 MG TABLET PO SCH (09:24)
[2016-11-03] MEDS: NICOTINE 14 MG/24 HR PATCH TRANSDERM SCH (09:25)
--- NOTE | 2016-11-03 09:40 | Hospitalist Progress Note ---
Assessment and Plan - Time spent with patient Time spent with patient: Less than 30 minutes (1) Acute respiratory failure Status: Acute Assessment and plan: Patient had acute respiratory failure. She is now extubated and improving. She is functioning well on nasal cannula. Pulmonary is following and assisting. Current Visit: Yes Qualifiers: Respiratory failure complication: hypoxia Qualified Code(s): J96.01 - Acute respiratory failure with hypoxia (2) COPD (chronic obstructive pulmonary disease) Status: Chronic Assessment and plan: Continuing with O2 and nebulizer therapy. Current Visit: No (3) Pneumonia Status: Acute Assessment and plan: She is continuing with antibiotic therapy. Dr. Darby recommends another 5 days of oral antibiotic therapy and feels it should be sufficient. Current Visit: Yes (4) CVA (cerebral vascular accident) Status: Acute Assessment and plan: Patient was noted to have an acute ischemic CVA with CT Results earlier in week : Large right OR NURSE MANAGER distribution area of recent ischemia with associated scattered petechial hemorrhage. This is grossly similar to the comparison study. No adverse interval changes Patient has been seen by neurology and will defer further evaluation and care to that service. Current Visit: Yes Hospitalist: Subjective Interval history: Chart is been reviewed and patient examined. She complains of anxiety and tremulousness and states that she is on Ativan at home. She states her breathing is improved she has minimal cough. She does complain of some difficulty with painful urination and also states that she has been constipated. Exam - Constitutional Vitals: Period Temp Pulse Resp BP Sys/Martinez Pulse Ox Last 24 Hr 97.3 F-99.1 F 54-98 14-20 105-159/53-72 86-99 General appearance: no acute distress - Head Head exam: Present: normocephalic, atraumatic - Eye Eye exam: Present: EOMI Pupils: Present: XAVIER - ENT ENT exam: Present: normal exam - Neck Neck exam: Present: normal inspection - Respiratory Respiratory exam: Present: clear to auscultation bilaterally. Absent: rales, rhonchi, wheezes - Cardiovascular Cardiovascular exam: Present: regular rate and rhythm - GI/Abdominal GI/Abdominal exam: Present: normal bowel sounds, soft. Absent: tenderness - Extremities Exam Extremities exam: Absent: calf tenderness, edema - Back Exam Back exam: Present: normal inspection - Neurological Exam Neurological exam: Present: alert, oriented X3, CN II-XII intact. Absent: motor sensory deficit - Psychiatric Psychiatric exam: Present: normal affect, normal mood. Absent: agitated, anxious - Skin Skin exam: Present: warm, dry. Absent: rash Results - Labs CBC & BMP: 11/03/16 05:12 11/03/16 05:12 Lab Results: I have reviewed the past 24 hour labs
[2016-11-03] MEDS: DIAZEPAM 2 MG TABLET PO SCH ×2 (10:50→20:05)
[2016-11-03] MEDS: DESITIN 4OZ/NYSTATIN 15 GRAM MIXTURE PASTE TOP SCH ×2 (11:01→21:26)
[2016-11-03 16:11] LABS: Apearance,Urine CLEAR (Clear); Bilirubin,Urine Negative (Negative); Blood, Urine Small mg/dL (Negative); Glucose,Urine (UA) Negative (Negative); Ketones,Urine Negative (Negative); Mucus,Urine Occasional /LPF (Occasional); Nitrite,Urine Negative (Negative); Protein,Urine Negative; RBC,Urine 4 /HPF (0-4); Squamous Epithelial Cell,Urine Occasional /HPF (0-10); Urine Color Straw (Yellow); Urine Specific Gravity 1.008 (1.001-1.035); Urine Urobilinogen < 2.0 EU/DL (0.2-1.0); WBC,Urine 9 /HPF (0-6)
[2016-11-03] MEDS: PHENAZOPYRIDINE 95 MG TABLET PO SCH (16:55)
[2016-11-03] MEDS: LACTULOSE 20 GM/30 ML UDCUP PO PRN (18:29)
[2016-11-03] MEDS: busPIRone 5 MG TABLET PO SCH (20:05)
[2016-11-04] MEDS: ALBUTEROL/IPRATROPIUM 3 ML NEB RESP TX SCH ×4 (02:30→19:57)
[2016-11-04] MEDS: CEFEPIME 1,000 MG in SODIUM CHLORIDE 0.9% 100 ML IV SCH (03:52)
[2016-11-04] MEDS: VANCOMYCIN INJ 1,000 MG in SODIUM CHLORIDE 0.9% 250 ML IV SCH (04:58)
--- NOTE | 2016-11-04 09:13 | Hospitalist Progress Note ---
Assessment and Plan - Time spent with patient Time spent with patient: Less than 30 minutes (1) Acute respiratory failure Status: Acute Assessment and plan: Patient had acute respiratory failure. She is now extubated and improving. She is functioning well on nasal cannula. Pulmonary is following and assisting. 11/04/16: Much improved and doing well. She is requiring O2 by nasal cannula periodically. Plan to discharge and transfer to [facility] on 11/05 Current Visit: Yes Qualifiers: Respiratory failure complication: hypoxia Qualified Code(s): J96.01 - Acute respiratory failure with hypoxia (2) COPD (chronic obstructive pulmonary disease) Status: Chronic Assessment and plan: Continuing with O2 and nebulizer therapy. Current Visit: No (3) Pneumonia Status: Acute Assessment and plan: She is continuing with antibiotic therapy. Dr. Darby recommends another 5 days of oral antibiotic therapy and feels it should be sufficient. Current Visit: Yes (4) CVA (cerebral vascular accident) Status: Acute Assessment and plan: Patient was noted to have an acute ischemic CVA with CT Results earlier in week : Large right DECORATOR LIGHTING FIXTURES distribution area of recent ischemia with associated scattered petechial hemorrhage. This is grossly similar to the comparison study. No adverse interval changes Patient has been seen by neurology and will defer further evaluation and care to that service. Current Visit: Yes Hospitalist: Subjective Interval history: Ms. Eubanks is doing well today without any shortness of breath, cough or sputum production. Her painful urination is improved with Pyridium. She is scheduled to be transferred to [facility] tomorrow. Exam - Constitutional Vitals: Period Temp Pulse Resp BP Sys/Martinez Pulse Ox Last 24 Hr 97.7 F-98.5 F 61-97 14-20 107-149/52-78 92-98 General appearance: no acute distress - Head Head exam: Present: normocephalic, atraumatic - Eye Eye exam: Present: EOMI Pupils: Present: XAVIER - ENT ENT exam: Present: normal exam - Neck Neck exam: Present: normal inspection - Respiratory Respiratory exam: Present: clear to auscultation bilaterally. Absent: rales, rhonchi, wheezes - Cardiovascular Cardiovascular exam: Present: regular rate and rhythm - GI/Abdominal GI/Abdominal exam: Present: normal bowel sounds, soft. Absent: tenderness - Extremities Exam Extremities exam: Absent: calf tenderness, edema - Back Exam Back exam: Present: normal inspection - Neurological Exam Neurological exam: Present: alert, oriented X3, CN II-XII intact. Absent: motor sensory deficit - Psychiatric Psychiatric exam: Present: normal affect, normal mood. Absent: agitated, anxious - Skin Skin exam: Present: warm, dry Results - Labs CBC & BMP: 11/03/16 05:12 11/03/16 05:12 Lab Results: I have reviewed the past 24 hour labs
[2016-11-04] MEDS: LACTULOSE 20 GM/30 ML UDCUP PO PRN (09:53)
[2016-11-04] MEDS: DIAZEPAM 2 MG TABLET PO SCH ×2 (09:54→20:12)
[2016-11-04] MEDS: ROSUVASTATIN 10 MG TABLET PO SCH (09:54)
[2016-11-04] MEDS: CLOPIDOGREL 75 MG TABLET PO SCH (09:55)
[2016-11-04] MEDS: busPIRone 5 MG TABLET PO SCH ×2 (09:56→20:12)
[2016-11-04] MEDS: PANTOPRAZOLE 40 MG TABLET PO SCH (09:57)
[2016-11-04] MEDS: NICOTINE 14 MG/24 HR PATCH TRANSDERM SCH (09:58)
[2016-11-04] MEDS: CARVEDILOL 6.25 MG TABLET PO SCH ×2 (09:59→20:12)
[2016-11-04] MEDS: ASPIRIN EC 81 MG TABLET PO SCH (09:59)
[2016-11-04] MEDS: INSULIN LISPRO 100 UNIT/ML SUBCUT SCH ×4 (10:00→20:12)
[2016-11-04] MEDS: DESITIN 4OZ/NYSTATIN 15 GRAM MIXTURE PASTE TOP SCH ×2 (10:00→20:13)
[2016-11-04] MEDS: LEVOFLOXACIN 500 MG TABLET PO SCH (10:05)
[2016-11-04] MEDS: PHENAZOPYRIDINE 95 MG TABLET PO SCH ×3 (10:34→16:25)
[2016-11-04] MEDS: methylPREDNISolone SOD SUC 40 MG/1 ML VIAL IV SCH (10:35)
[2016-11-04] MEDS: SULFAMETHOX/TRIMETHOPRIM 800-160 MG TABLET PO SCH (20:12)
[2016-11-05] MEDS: ALBUTEROL/IPRATROPIUM 3 ML NEB RESP TX SCH ×2 (00:36→07:31)
--- NOTE | 2016-11-05 08:54 | Case Mgmt Physician Query Form ---
TB Signs and Symptoms Screening ([place]) INSTRUCTIONS: To be completed annually on residents/staff with a significant Tuberculin Skin Test (TST) upon admission/hire or a prior significant TST. To be completed on all staff at hire. Please respond to each listed symptom with an (X) in either the "YES" or "NO" box. Do you currently have any of the following symptoms: YES NO ( ) ( x) A cough If yes, is it: ( ) Productive ( ) Non- productive ( ) (x ) Hemoptysis (spitting up blood) ( ) ( x) Chest pains ( ) ( x) Weight Loss ( ) (x ) Fever ( ) ( x) Night Sweats (x ) ( ) Weakness ( ) ( x) Loss of Appetite ( ) ( x) Difficulty Breathing If you answered YES" to any of the above questions, how long have symptoms been present? Comments: If you have any questions, please contact me . Thank you, Sarika CARLOS Email: [email or web address] [facility] [place]
[2016-11-05] MEDS ORDERED: predniSONE 20 MG TABLET PO SCH (09:00)
--- NOTE | 2016-11-05 09:04 | Discharge Summary ---
Hospital Course - Hospital Course Hospital Course: Ms. Eubanks is a 61 year old white female with a history of htn, depression and anxiety, COPD, pneumonia, stroke, RA, chf, and MIKE admitted from [facility] for respiratory distress secondary to possible drug overdose. Patient had a recent carotid endarterectomy by Dr. Oliva. Patient took too many pain medicines and went into respiratory distress and was intubated over at [facility]. Patient was transferred here for management. Dr. Darby was consulted to care for the vent. Patient has severe chronic COPD and is already on inhalers at home. Patient developed pneumonia on the vent and was started on cefepime and vancomycin on October 29, 2016. GI Dr. Bennett was consulted. Patient was started on Mucomyst due to elevated liver enzymes and concern for Tylenol overdose but then nanogram was low for Tylenol and the Mucomyst was discontinued. Her AST on admission was 1516 and is now down to 68. Her ALT on admission was 535 and is down to 270. Elevated liver enzymes are secondary to ischemic hepatitis. Patient was mildly anemic during hospitalization but her hemoglobin has improved without blood transfusion. Bronchoscopy was performed on October 25, 2016 which grew out MRSA, E. coli and Pseudomonas. Her blood cultures 2 were negative no growth. Dr. Darby is recommended treating her for another 30 days of Bactrim and Levaquin. Patient was weaned off the vent. Cardiology was consulted due to elevated troponin and EKG with nonspecific ST changes. The elevated troponin was thought to be secondary to recent hemorrhagic conversion of her stroke. Dr. Medellin was consulted and initially stopped all antiplatelets and anticoagulants. Repeat head CT on October 26, 2016 showed large right BILINGUAL ADMINISTRATIVE ASSISTANT distribution of recent ischemia with associated scattered petechial hemorrhage. Dr. Medellin then okayed for her to go back on Plavix and she is also on a baby aspirin for treatment of stroke. Patient is still on a lot of chronic narcotics and will continue to be high risk for overdose. She has been accepted to [facility] rehab today and will remain on antibiotics for the next 4-6 weeks. She should have weekly CMPs while on Bactrim. - Time spent with patient Time with patient DS: Greater than 30 minutes (50 min) Discharge Plan - Discharge Data Disposition: Disch To Home/Self Care Condition at Discharge: Stable Discharge Diet: heart healthy Activity: resume usual activities as tolerated Hygiene: no restrictions Weight Bearing at Discharge: full weight bearing - Discharge Medications New Albuterol/Ipratropium Neb [Duoneb] 3 ml RESP TX RT Q6H Insulin Lispro [HumaLOG] See Protocol SUBCUT ACHS unit Lactulose Liquid [Chronulac] 10 gm PO BID PRN PRN Reason: Constipation Levofloxacin Tab [Levaquin Tab] 500 mg PO Q24H #30 tablet Pantoprazole Tab [Protonix Tab] 40 mg PO DAILY tablet Phenazopyridine [Pyridium] 95 mg PO TID W/MEALS tablet predniSONE TAB [PredniSONE] 40 mg PO DAILY #30 tablet Sulfameth/Trimeth 800-160 Tab [Bactrim DS Tab] 1 tablet PO BID #30 tablet Carvedilol [Coreg] 6.25 mg PO BID tablet Nicotine 14 mg/24 Hr Patch [Nicoderm CQ 14 mg/24 hr Patch] 1 patch TRANSDERM DAILY patch Continue fentaNYL [Fentanyl 50 mcg/hr Patch] 1 patch TRANSDERM Q3DAY #5 patch HYDROcodone/ACETAMIN 10-325 [[place] 10-325] 1 tablet PO Q4-6H PRN #30 PRN Reason: Pain Moderate To Severe (4-10) Diazepam Tab [Valium Tab] 2 mg PO BID #60 tablet Clopidogrel [Plavix] 1 tablet PO DAILY Rosuvastatin [Crestor] 1 tablet PO DAILY Aspirin [Ecotrin] 81 mg PO DAILY Losartan [Cozaar] 50 mg PO DAILY Buspirone HCl 7.5 mg PO BID Discontinued Albuterol Inhaler [Proventil Inhaler] 2 puff INH Q4HR Temazepam [Restoril] 15 mg PO BEDTIME PRN PRN Reason: Sleep - Follow Up or Referral - Forms/Instructions Exam - Constitutional Vitals: Period Temp Pulse Resp BP Sys/Martinez Pulse Ox Last 24 Hr 96.4 F-99.0 F 65-85 14-72 111-162/60-86 95-100 General appearance: normal weight, no acute distress - Respiratory Respiratory exam: Present: clear to auscultation bilaterally. Absent: stridor - Cardiovascular Cardiovascular exam: Present: regular rate and rhythm. Absent: systolic murmur - GI/Abdominal GI/Abdominal exam: Present: normal bowel sounds, soft. Absent: tenderness Discharge Results Procedures and tests throughout hospitalization: Pending Orders 11/03/16 Urine Culture Routine Labs on day of discharge: Labs from last 24 hours 11/05/16 11/04/16 11/04/16 07:27 19:59 15:57 POC Glucose 141 H 81 Vancomycin Trough 18.1 11/04/16 11/04/16 15:50 11:48 POC Glucose 129 H 135 H Vancomycin Trough Preliminary micro results at discharge 11/03/16 Unknown Urine Culture - Preliminary Urine,Clean Catch No Growth at 12 hours. DS: Provider Date of admission: 10/23/16 14:14 Primary care physician: Jennifer Vora M.D. Attending physician on admission: Lianet Bishop MD Consults: 10/23/16 15:34 Consult to Physician [CONS] Routine Comment: Consulting Provider: Satya Forbes Person Notified: lily Date Notified: 10/23/16 Time Notified: 16:28 Consult Notification Comment: will notify dr forbes 10/23/16 15:54 Consult to Dietitian [CONS] Routine Reason for Dietitian: Dietary Consult 10/23/16 16:44 Consult to Physician [CONS] Routine Comment: Consulting Provider: Cardiology - [facility] Consult to Physician [CONS] Routine Comment: Consulting Provider: Susie Higgins Person Notified: cis answering service Date Notified: 10/23/16 Time Notified: 16:48 Consult Notification Comment: "will get it to her" 10/23/16 23:38 Consult to Physician [CONS] Routine Comment: stroke Consulting Provider: Dimitrios Medellin When should Consulting Provider be notified: In am Person Notified: office Date Notified: 10/24/16 Time Notified: 09:10 Consult Notification Comment: left voicemail @ office 10/25/16 09:33 Consult to Dietitian [CONS] Routine Reason for Dietitian: TF-Initiate/Manage 10/29/16 14:30 Consult to Pharmacy [CONS] Routine Reason for Pharmacy Consult: Dose/Manage Vancomycin 11/01/16 13:56 Consult to Occupational Therapy [CONS] Routine Reason for Occupational Therapy: Evaluate and Treat Consult to Physical Therapy [CONS] Routine Reason for Physical Therapy: Evaluate and Treat Discharging clinician: Eva Joyce MD
[2016-11-05] MEDS ORDERED: TUBERCULIN SKIN TEST 0.1 ML SYRINGE INTRADERM ONE (09:18)
[2016-11-05] MEDS: INSULIN LISPRO 100 UNIT/ML SUBCUT SCH (09:39)
[2016-11-05] MEDS: fentaNYL 50 MCG/HR PATCH TRANSDERM SCH (09:40)
[2016-11-05] MEDS: LEVOFLOXACIN 500 MG TABLET PO SCH (09:41)
[2016-11-05] MEDS: busPIRone 5 MG TABLET PO SCH (09:41)
[2016-11-05] MEDS: CLOPIDOGREL 75 MG TABLET PO SCH (09:42)
[2016-11-05] MEDS: PANTOPRAZOLE 40 MG TABLET PO SCH (09:42)
[2016-11-05] MEDS: SULFAMETHOX/TRIMETHOPRIM 800-160 MG TABLET PO SCH (09:42)
[2016-11-05] MEDS: NICOTINE 14 MG/24 HR PATCH TRANSDERM SCH (09:42)
[2016-11-05] MEDS: ROSUVASTATIN 10 MG TABLET PO SCH (09:42)
[2016-11-05] MEDS: DIAZEPAM 2 MG TABLET PO SCH (09:42)
[2016-11-05] MEDS: ASPIRIN EC 81 MG TABLET PO SCH (09:42)
[2016-11-05] MEDS: PHENAZOPYRIDINE 95 MG TABLET PO SCH (09:42)
[2016-11-05] MEDS: CARVEDILOL 6.25 MG TABLET PO SCH (09:42)
[2016-11-05] MEDS: DESITIN 4OZ/NYSTATIN 15 GRAM MIXTURE PASTE TOP SCH (09:51)
[2016-11-05 10:54] VITALS: BP 115/59
--- NOTE | 2016-11-12 08:14 | Physician Query Form ---
CLICK EDIT DOCUMENT TO SELECT QUERY ANSWER --> OK --> SIGN Lorena Yung RN Clinical Station Attendant W) [phone] (f) [phone] [email or web address]: Make your selection(s) from the choices in EACH section by typing an "x" and enter comments in the comment section. Please use your independent medical judgment in providing your response. This request does not imply that any particular answer is desired or expected. CLINICAL INDICATORS: (Providers should not edit this section) Based on documentation of "Patient developed pneumonia on the vent and was started on cefepime and vancomycin". Bronchial washings showed MRSA, E-coli, Pseudomonas aeruginosa. Community Acquired and Healthcare Acquired are both unspecified terms and require further specificity. Based on the above, could you please clarify further specificity regarding the type of pneumonia you are treating (even if specific organism may not be known) ? ( ) Bacterial pneumonia due to, please specify organism (if known): ( x) Aspiration pneumonia ( ) Gram negative pneumonia ( ) Gram positive pneumonia ( ) Pneumonia with Influenza ( ) Viral pneumonia ( ) Post procedural ( ) Ventilator associated pneumonia ( ) HIV associated pneumonia ( ) Radiation Pneumonitis ( ) Pneumonia due to, please specify: ( ) Clinically unable to determine ( ) Other, please specify: COMMENTS: PLEASE ALSO DOCUMENT RESPONSE IN PROGRESS NOTES AND/OR DISCHARGE SUMMARY Use of terms such as suspected, likely, or probable (associated with a specific diagnosis that is being evaluated, monitored, or treated as if it exists) are acceptable and can be restated in the discharge summary if not ruled out. MTDD
== END 2016-11-05 12:00 | DRG 64 ==
LOC: SUATTDRO 14:14 → N.CC 14:14 → N.ICU 10-27 16:04 → N.5E 10-31 11:25
PROVIDERS: ADMIT Pediatrics; ATTEND Internal Medicine